=== PATIENT | male | born 1965 | race African-American/Black ===

== ENCOUNTER 2024-06-28 16:15 | Inpatient (IN) | payer MEDICARE, MEDICAID, SELFPAY ==
[2024-06-28] VITALS (18 sets, daily range): BP systolic 165–211; BP diastolic 65–151; PULSE 72–83; RESP 8–31; TEMP 35.8–36.7; O2SAT 92–100; BMI 21.0; BMI 21.1
--- NOTE | 2024-06-28 16:22 | CT_ITS ---
EXAMINATION : Head CT w/out contrast HISTORY : fall COMPARISON : None. TECHNIQUE : Multiple contiguous axial images were obtained from the skull base to the vertex without intravenous contrast. A radiation dose optimization technique was used for this scan. FINDINGS : There is no evidence for acute intracranial hemorrhage, mass effect, or midline shift. There is no extra-axial fluid collection. There are periventricular white matter changes consistent with chronic microvascular ischemic disease. There is sulcal widening and ventricular enlargement consistent with cerebral atrophy. There is normal thompson-white differentiation, without CT evidence of acute ischemia or infarct. Right frontoparietal encephalomalacia. The skull base and calvarium are unremarkable. The orbits are unremarkable. The paranasal sinuses are clear. The mastoid air cells are well-aerated. The soft tissues are unremarkable. CT/Brain/Head without Contrast IMPRESSION: No acute intracranial abnormality. Right frontoparietal encephalomalacia. Chronic involutional and ischemic changes of the brain. Electronically Signed: Eugneio Richardson MD at 17:01 EST ,
--- NOTE | 2024-06-28 16:22 | CT_ITS ---
INDICATION: fall EXAMINATION: CT CERVICAL SPINE - CT Spine Cervical W/O Contrast Injection TECHNIQUE: Helically acquired images were obtained of the cervical spine. 2D reformatted images were reviewed. A radiation dose optimization technique was used for this scan. IV Contrast dosage and agent: None. COMPARISON: None. FINDINGS: VERTEBRAE: No fracture or traumatic subluxation. No discrete lytic or blastic abnormality. Normal alignment. Normal craniocervical junction and cervicothoracic junction. DISCS and SPINAL CANAL: Mild multilevel degenerative disc disease and spondylosis. No critical stenosis. NECK SOFT TISSUES: No prevertebral soft tissue swelling. There is no cervical adenopathy. LUNG APICES: Clear. CT/Spine Cervical without Contras IMPRESSION: No evidence of acute cervical spinal fracture or spondylolisthesis. Electronically Signed: Eugenio Richardson MD at 17:[address] [facility] ,
--- NOTE | 2024-06-28 16:25 | EDS_ITS ---
HPI <AMOS Cross - Last Filed: 06/28/24 20:58> HPI - Fall History of Present Illness Chief Complaint: Fall Narrative Narrative: 58-year-old male with past medical history of CVA and left hemiparesis presents with altered mental status that started last night. Documentation shows he has a history of HTN, HLD, DM2, CVA, left-sided hemiparesis and dysarthria, ESRD on HD MWF. He is alert and oriented x 1-2 at baseline. Last night he seemed more confused with vomiting. Today he was sitting in his wheelchair and staff had called the paramedics to take him to the ER for evaluation when he fell forward out of the chair onto the ground. Most of the impact was on his back. No loss of consciousness. No blood thinners. He is now awake but will not answer questions and has vomited on the way several times here. [facility] <AMOS Cross - Last Filed: 06/28/24 20:58> [facility] Home Medications ?Medication ?Instructions ?Recorded ?Last Taken ?Type acetaminophen 325 mg capsule 650 mg PO Q4H PRN fever or pain 06/28/24 Unknown History acetaminophen 650 mg rectal 650 mg AL Q4H PRN fever 06/28/24 Unknown History suppository bisacodyl 10 mg rectal suppository 10 mg AL DAILY PRN constipation 06/28/24 Unknown History brimonidine 0.2 % eye drops 1 drp ophthalmic (eye) BID 06/28/24 Unknown History buspirone 5 mg tablet 5 mg PO TID ANXIETY 06/28/24 Unknown History carvedilol 25 mg tablet 50 mg PO BID 06/28/24 Unknown History cholecalciferol (vitamin D3) 1,250 1,250 mcg PO QWEEK 06/28/24 Unknown History mcg (50,000 unit) capsule clonidine 0.3 mg/24 hr weekly 1 patch transdermal QWEEK 06/28/24 Unknown History transdermal patch dorzolamide 22.3 mg-timolol 6.8 1 drp ophthalmic (eye) Q12H 06/28/24 Unknown History mg/mL eye drops escitalopram oxalate 10 mg tablet 10 mg PO DAILY 06/28/24 Unknown History (Lexapro) gabapentin 300 mg capsule 300 mg PO DAILY 06/28/24 Unknown History glucagon 1 mg solution for 1 mg subcut X1 06/28/24 Unknown History injection (Glucagon Emergency Kit) guaifenesin 100 mg/5 mL oral 200 mg PO Q4H PRN congestion 06/28/24 Unknown History liquid (Adult Tussin Chest Congestion) hydralazine 100 mg tablet 100 mg PO TID 06/28/24 Unknown History insulin glargine 100 unit/mL (3 10 unit subcut QHS 06/28/24 Unknown History mL) subcutaneous pen (Lantus Solostar U-100 Insulin) insulin lispro 100 unit/mL 1 unit subcut .COMPLEX 06/28/24 Unknown History subcutaneous pen (Humalog KwikPen (U-100) Insulin) latanoprost 0.005 % eye drops 1 drp ophthalmic (eye) QHS 06/28/24 Unknown History lorazepam 0.5 mg tablet (Ativan) 0.5 mg PO Q12H PRN anxiety 06/28/24 Unknown History magnesium hydroxide 400 mg/5 mL 30 ml PO DAILY PRN constipation 06/28/24 Unknown History oral suspension (Milk of Magnesia) melatonin 5 mg tablet 5 mg PO QHS 06/28/24 Unknown History mirtazapine 15 mg tablet 15 mg PO QHS 06/28/24 Unknown History nifedipine 90 mg tablet,extended 90 mg PO DAILY 06/28/24 Unknown History release pantoprazole 20 mg tablet,delayed 20 mg PO DAILY 06/28/24 Unknown History release sevelamer carbonate 800 mg tablet 800 mg PO TID 06/28/24 Unknown History sodium phosphates 19 gram-7 118 ml AL DAILY PRN constipation 06/28/24 Unknown History gram/118 mL enema (Enema) trazodone 100 mg tablet 100 mg PO QHS 06/28/24 Unknown History vitamin B complex-vitamin C-folic 1 tab PO DAILY 06/28/24 Unknown History acid 0.8 mg tablet (Melony-Barrett) Allergy/AdvReac Type Severity Reaction Status Date / Time tramadol Allergy Unknown PT UNABLE Verified 06/28/24 16:17 TO RESPOND-NEEDS F/U lisinopril Allergy PT UNABLE Verified 06/28/24 16:17 TO RESPOND-NEEDS F/U Social History Smoking Status: Unknown if ever smoked ROS <AMOS Cross - Last Filed: 06/28/24 20:58> ROS ED ROS Narrative unable to obtain due to encephalopathy EXAM <AMOS Cross - Last Filed: 06/28/24 20:58> Physical Exam Narrative Exam Narrative: CONST: Patient awake sitting in bed, agitated and moving around. EYES: Normal inspection. HEAD: Normocephalic atraumatic. NECK: Normal inspection. RESP: No respiratory distress, CTAB. CVS: Regular rate and rhythm, no murmur, no gallop. ABD: Soft and nontender, no guarding or rebound. Back: Normal inspection, no external signs of trauma. SKIN: Color normal, no rash, warm, dry, intact. EXTREMITIES: Chronic left upper extremity contracture. Patient moving right arm and both legs while moving around the bed and pulled away right arm when staff trying to insert IV. NEURO: Awake. He told me his name but then would not answer further questions and is not making eye contact or following commands. PSYCH: Normal affect. Const Vital Signs: 06/28/24 16:17 06/28/24 16:22 06/28/24 17:06 Temperature 97 F L Temperature Source Temporal Pulse Rate 74 77 Respiratory Rate 15 14 Respiratory Effort Normal Respiratory Depth Normal Respiratory Pattern Normal Blood Pressure 209/65 H 211/86 H Blood Pressure Mean 113 127 Pulse Ox 95 92 93 Oxygen Delivery Method Room Air Room Air 06/28/24 17:35 06/28/24 18:06 06/28/24 19:11 Temperature Temperature Source Pulse Rate 72 Respiratory Rate 19 H Respiratory Effort Respiratory Depth Respiratory Pattern Blood Pressure 175/87 H 201/94 H 197/151 H Blood Pressure Mean 116 129 166 Pulse Ox 97 Oxygen Delivery Method 06/28/24 19:20 06/28/24 19:27 06/28/24 19:27 Temperature Temperature Source Pulse Rate 78 83 Respiratory Rate 31 H 19 H Respiratory Effort Respiratory Depth Respiratory Pattern Blood Pressure 198/111 H 198/111 H Blood Pressure Mean 140 135 Pulse Ox 95 98 Oxygen Delivery Method 06/28/24 19:30 06/28/24 19:34 06/28/24 19:45 Temperature Temperature Source Pulse Rate 82 78 73 Respiratory Rate 13 10 L 12 Respiratory Effort Respiratory Depth Respiratory Pattern Blood Pressure 165/81 H 173/84 H Blood Pressure Mean 104 108 Pulse Ox 96 95 97 Oxygen Delivery Method Room Air 06/28/24 20:00 06/28/24 20:15 06/28/24 20:30 Temperature Temperature Source Pulse Rate 78 73 78 Respiratory Rate 8 L 12 13 Respiratory Effort Respiratory Depth Respiratory Pattern Blood Pressure 188/102 H 199/116 H 199/116 H Blood Pressure Mean 127 134 141 Pulse Ox 96 99 100 Oxygen Delivery Method Room Air Room Air Room Air 06/28/24 20:45 06/28/24 21:00 Temperature Temperature Source Pulse Rate 75 80 Respiratory Rate 10 L 15 Respiratory Effort Respiratory Depth Respiratory Pattern Blood Pressure 171/94 H Blood Pressure Mean 117 Pulse Ox 97 99 Oxygen Delivery Method Room Air <Dr. Ryan Vale MD - Last Filed: 06/28/24 21:10> Physical Exam Const Vital Signs: 06/28/24 16:17 06/28/24 16:22 06/28/24 17:06 Temperature 97 F L Temperature Source Temporal Pulse Rate 74 77 Respiratory Rate 15 14 Respiratory Effort Normal Respiratory Depth Normal Respiratory Pattern Normal Blood Pressure 209/65 H 211/86 H Blood Pressure Mean 113 127 Pulse Ox 95 92 93 Oxygen Delivery Method Room Air Room Air 06/28/24 17:35 06/28/24 18:06 06/28/24 19:11 Temperature Temperature Source Pulse Rate 72 Respiratory Rate 19 H Respiratory Effort Respiratory Depth Respiratory Pattern Blood Pressure 175/87 H 201/94 H 197/151 H Blood Pressure Mean 116 129 166 Pulse Ox 97 Oxygen Delivery Method 06/28/24 19:20 06/28/24 19:27 06/28/24 19:27 Temperature Temperature Source Pulse Rate 78 83 Respiratory Rate 31 H 19 H Respiratory Effort Respiratory Depth Respiratory Pattern Blood Pressure 198/111 H 198/111 H Blood Pressure Mean 140 135 Pulse Ox 95 98 Oxygen Delivery Method 06/28/24 19:30 06/28/24 19:34 06/28/24 19:45 Temperature Temperature Source Pulse Rate 82 78 73 Respiratory Rate 13 10 L 12 Respiratory Effort Respiratory Depth Respiratory Pattern Blood Pressure 165/81 H 173/84 H Blood Pressure Mean 104 108 Pulse Ox 96 95 97 Oxygen Delivery Method Room Air 06/28/24 20:00 06/28/24 20:15 06/28/24 20:30 Temperature Temperature Source Pulse Rate 78 73 78 Respiratory Rate 8 L 12 13 Respiratory Effort Respiratory Depth Respiratory Pattern Blood Pressure 188/102 H 199/116 H 199/116 H Blood Pressure Mean 127 134 141 Pulse Ox 96 99 100 Oxygen Delivery Method Room Air Room Air Room Air 06/28/24 20:45 06/28/24 21:00 Temperature Temperature Source Pulse Rate 75 80 Respiratory Rate 10 L 15 Respiratory Effort Respiratory Depth Respiratory Pattern Blood Pressure 171/94 H Blood Pressure Mean 117 Pulse Ox 97 99 Oxygen Delivery Method Room Air [facility] <AMOS Cross - Last Filed: 06/28/24 20:58> [facility] Narrative Medical decision making narrative: History gathered from: EMS, nursing staff called the SNF for history Consults: hospitalist, [facility] Wide differential includes but not limited to intracranial hemorrhage, electrolyte abnormality, infection, hypertensive urgency or emergency 58-year-old male from [facility] was was sitting in his wheelchair awaiting EMS transport due to altered mental status and then had a fall and vomiting. He is awake but agitated. He can tell me his name but can provide no other history. He does not follow commands. He has chronic left arm contracture from an old stroke with no other obvious new deficits. No signs of trauma on exam. BP is high at 209/65. With vomiting after a fall concern is to rule out intracranial hemorrhage. He was given Ativan so he can get testing done. CT brain and cervical spine are negative. CXR shows no acute process. Labs show normal white count of 8.5 and stable anemia of chronic disease at 11.3. Creatinine is 7.82 consistent with ESRD. He is retaining CO2 at 36.0 which appears new so venous blood gas was ordered. There is no significant CO2 retention on venous blood gas. Glucose is 184, normal anion gap. Patient does not make urine. He is still altered from baseline and will need admission. Case discussed with hospitalist. Of note for his hypertension he was initially given IV hydralazine 10 mg and did briefly come down but is now again up to 201/94 so I ordered IV hydralazine 20 mg. Case will be discussed with the hospitalist for admission. The hospitalist requested and [facility] consult with concern that since his altered mental status has been ongoing since yesterday there is a possibility of subclinical seizures that may require 24-hour EEG monitoring. I placed the [facility] consult and discussed the case with Dr. Margareth Cee. She states he does not require continuous EEG but recommended admission to [place] with a routine EEG and MRI of the brain. I have personally performed a face to face assessment of the patient and have reviewed the JESSE Note. I performed a substantive portion of the visit including all aspects of the following. My quintana findings include: History is remarkable for patient awaiting transfer to hospital because of altered mental status. He had nausea and vomiting since fall. Nursing staff did call the facility. His mental status was altered prior to the fall. Uncertain where this is worse. He has vomited several times since the fall. Presently he is agitated. He is unable to contribute with respect to history. Physical exam is limited because of his agitation. Exam is remarkable for an elevated blood pressure of 209/65. There is no obvious head trauma noted. There is no hemotympanum. There is no palpable depression of the scalp. There is no nystagmus. Patient is presently agitated. Will administer Ativan. Patient withdraws to Babinski testing. Medical Decision Making with history of fall head trauma potentially change in mental status multiple episodes of vomiting CT of the head was obtained to rule out subdural hematoma, epidural hematoma, traumatic subarachnoid hemorrhage or intraparenchymal contusion. Since C-spine cannot be cleared patient was placed in a c-collar and CT of the neck was obtained. Because his illness started prior to the fall we will perform propria labs to look for metabolic infectious cause of his altered mental status. Other additions or changes: Patient had a witnessed generalized tonic-clonic seizure in the emergency department. He does not have a history of seizure disorder. He was administered 17 mg/kg of valproic acid. He stopped without treatment. His blood pressure is elevated and remains elevated. He is noted to be on hydralazine. 10 mg of IV hydralazine was ordered. Lab Data Attestation: I reviewed the patient's lab results. Labs: Laboratory Results - last 24 hr 06/28/24 16:30 WBC 8.5 RBC 3.71 L Hgb 11.3 L Hct 33.8 L MCV 91.1 MCH 30.5 MCHC 33.4 RDW Std Deviation 51.5 H RDW Coeff of Tae 15.4 H Plt Count 295 MPV 10.1 Immature Gran % (Auto) 0.500 Neut % (Auto) 77.1 H Lymph % (Auto) 11.2 L [place] % (Auto) 9.3 Eos % (Auto) 1.1 Baso % (Auto) 0.8 Absolute Neuts (auto) 6.5 Absolute Lymphs (auto) 0.95 Nucleated RBC % 0 Sodium 137 Potassium 4.4 Chloride 95 L Carbon Dioxide 36.0 H Anion Gap 6 BUN 33 H Creatinine 7.82 H* Estim Creat Clear Calc 9.15 Est GFR (MDRD) Af Amer 9 L Est GFR (MDRD) Non-Af 8 L BUN/Creatinine Ratio 4.2 L Glucose 184 H Calcium 10.0 ABG Data ABG results: ABG 06/28/24 17:32 Specimen Type PILY VBG pH 7.47 H VBG pO2 35 VBG HCO3 33 H VBG Total CO2 34 H VBG O2 Sat (Calc) 71 H VBG Base Excess 9 H POC Mix VBG pCO2 Pt Tmp 44.6 O2 Delivery Device RA Radiography Diagnostic Testing: Clinical Impression(s) from Imaging Studies Brain CT 06/28/24 16:22 IMPRESSION: No acute intracranial abnormality. Right frontoparietal encephalomalacia. Chronic involutional and ischemic changes of the brain. Electronically Signed: Eugenio Richardson MD at 17:01 EST , Cervical Spine CT 06/28/24 16:22 IMPRESSION: No evidence of acute cervical spinal fracture or spondylolisthesis. Electronically Signed: Eugenio Richardson MD at 17:02 EST , Chest X-Ray 06/28/24 16:35 IMPRESSION: No acute radiographic abnormalities. Electronically Signed: Eugenio Richardson MD at 17:02 EST , <Dr. Ryan Vale MD - Last Filed: 06/28/24 21:10> [facility] MDM Narrative Medical decision making narrative: I have personally performed a face to face assessment of the patient and have reviewed the JESSE Note. I performed a substantive portion of the visit including all aspects of the following. My quintana findings include: History is remarkable for patient awaiting transfer to hospital because of altered mental status. He had nausea and vomiting since fall. Nursing staff did call the facility. His mental status was altered prior to the fall. Uncertain where this is worse. He has vomited several times since the fall. Presently he is agitated. He is unable to contribute with respect to history. Physical exam is limited because of his agitation. Exam is remarkable for an elevated blood pressure of 209/65. There is no obvious head trauma noted. There is no hemotympanum. There is no palpable depression of the scalp. There is no nystagmus. Patient is presently agitated. Will administer Ativan. Patient withdraws to Babinski testing. Medical Decision Making with history of fall head trauma potentially change in mental status multiple episodes of vomiting CT of the head was obtained to rule out subdural hematoma, epidural hematoma, traumatic subarachnoid hemorrhage or intraparenchymal contusion. Since C-spine cannot be cleared patient was placed in a c-collar and CT of the neck was obtained. Because his illness started prior to the fall we will perform propria labs to look for metabolic infectious cause of his altered mental status. Other additions or changes: Patient had a witnessed generalized tonic-clonic seizure in the emergency department. He does not have a history of seizure disorder. He was administered 17 mg/kg of valproic acid. He stopped without treatment. His blood pressure is elevated and remains elevated. He is noted to be on hydralazine. 10 mg of IV hydralazine was ordered. Lab Data Labs: Laboratory Results - last 24 hr 06/28/24 16:30 WBC 8.5 RBC 3.71 L Hgb 11.3 L Hct 33.8 L MCV 91.1 MCH 30.5 MCHC 33.4 RDW Std Deviation 51.5 H RDW Coeff of Tae 15.4 H Plt Count 295 MPV 10.1 Immature Gran % (Auto) 0.500 Neut % (Auto) 77.1 H Lymph % (Auto) 11.2 L [place] % (Auto) 9.3 Eos % (Auto) 1.1 Baso % (Auto) 0.8 Absolute Neuts (auto) 6.5 Absolute Lymphs (auto) 0.95 Nucleated RBC % 0 Sodium 137 Potassium 4.4 Chloride 95 L Carbon Dioxide 36.0 H Anion Gap 6 BUN 33 H Creatinine 7.82 H* Estim Creat Clear Calc 9.15 Est GFR (MDRD) Af Amer 9 L Est GFR (MDRD) Non-Af 8 L BUN/Creatinine Ratio 4.2 L Glucose 184 H Calcium 10.0 ABG Data ABG results: ABG 06/28/24 17:32 Specimen Type PILY VBG pH 7.47 H VBG pO2 35 VBG HCO3 33 H VBG Total CO2 34 H VBG O2 Sat (Calc) 71 H VBG Base Excess 9 H POC Mix VBG pCO2 Pt Tmp 44.6 O2 Delivery Device RA Radiography Chest X-Ray - ED: 1 View, Read by ED Physician, Normal, Lungs, Mediastinum, Bony Structures, No Acute Disease and Cardiomegaly Diagnostic Testing: Clinical Impression(s) from Imaging Studies Brain CT 06/28/24 16:22 IMPRESSION: No acute intracranial abnormality. Right frontoparietal encephalomalacia. Chronic involutional and ischemic changes of the brain. Electronically Signed: Eugenio Richardson MD at 17:01 EST Reading Location ID and State: [place] / [place] Tel , Service support , Cervical Spine CT 06/28/24 16:22 IMPRESSION: No evidence of acute cervical spinal fracture or spondylolisthesis. Electronically Signed: Eugenio Richardson MD at 17:02 EST Reading Location ID and State: [place] / [place] Tel , Service support , Chest X-Ray 06/28/24 16:35 IMPRESSION: No acute radiographic abnormalities. Electronically Signed: Eugenio iRchardson MD at 17:02 EST , CT of the head reveals evidence of prior caudate nucleus stroke. There is an area of hypodensity in the left parietal area. Will need to compare to prior. CT of the neck reveals some degenerative changes no fracture, subluxation dislocation. Is no prevertebral soft tissue swelling noted. Management Discussion w/another healthcare provider: Hospitalist (Hospitalist concern the patient has been having partial seizures. Requested consult with neurology. Neurology was contacted made aware of patient's history physical and hospitalist concern since we do not have 24-hour EEG monitoring capability. Awaiting consult recommendation.) Discharge Plan Triage Chief Complaint: Fall ED Midlevel Provider: [place] ED Provider: Ryan Vale Dx/Rx/DC Orders Clinical Impression: Fall, Encephalopathy, History of end stage renal disease, Hypertension, Generalized convulsive seizure Prescriptions: No Action acetaminophen 325 mg capsule 650 mg PO Q4H PRN (Reason: fever or pain) acetaminophen 650 mg suppository 650 mg AL Q4H PRN (Reason: fever) lorazepam [Ativan] 0.5 mg tablet 0.5 mg PO Q12H PRN (Reason: anxiety) bisacodyl 10 mg suppository 10 mg AL DAILY PRN (Reason: constipation) brimonidine 0.2 % drops 1 drp ophthalmic (eye) BID Rx Instructions: BOTH EYES buspirone 5 mg tablet 5 mg PO TID carvedilol 25 mg tablet 50 mg PO BID Rx Instructions: must administer with a meal/food clonidine 0.3 mg/24 hr patch weekly 1 patch transdermal QWEEK dorzolamide-timolol 22.3-6.8 mg/mL drops 1 drp ophthalmic (eye) Q12H Rx Instructions: BOTH EYES Enema 19-7 gram/118 mL enema 118 ml AL DAILY PRN (Reason: constipation) gabapentin 300 mg capsule 300 mg PO DAILY Glucagon Emergency Kit (human) 1 mg recon soln 1 mg subcut X1 guaifenesin [Adult Tussin Chest Congestion] 100 mg/5 mL liquid 200 mg PO Q4H PRN (Reason: congestion) insulin lispro [Humalog KwikPen Insulin] 100 unit/mL insulin pen 1 unit subcut .COMPLEX Rx Instructions: 1 unit subcutaneously QID PER SLIDING SCALE 151-200=1U, 201-250=2U, 251- 300=3U, 301-350=4U, 351-400=5U, 401-450=6U, NOTIFY MD IF >450; hydralazine 100 mg tablet 100 mg PO TID insulin glargine [Lantus Solostar U-100 Insulin] 100 unit/mL (3 mL) insulin pen 10 unit subcut QHS latanoprost 0.005 % drops 1 drp ophthalmic (eye) QHS Rx Instructions: BOTH EYES escitalopram oxalate [Lexapro] 10 mg tablet 10 mg PO DAILY melatonin 5 mg tablet 5 mg PO QHS magnesium hydroxide [Milk of Magnesia] 400 mg/5 mL suspension 30 ml PO DAILY PRN (Reason: constipation) nifedipine 90 mg tablet extended release 90 mg PO DAILY pantoprazole 20 mg tablet,delayed release (DR/EC) 20 mg PO DAILY mirtazapine 15 mg tablet 15 mg PO QHS Melony-Barrett 0.8 mg tablet 1 tab PO DAILY sevelamer carbonate 800 mg tablet 800 mg PO TID trazodone 100 mg tablet 100 mg PO QHS cholecalciferol (vitamin D3) 1,250 mcg (50,000 unit) capsule 1,250 mcg PO QWEEK Primary Care Provider: Karol Alejandro Print Language: [place]
--- NOTE | 2024-06-28 16:35 | RAD_ITS ---
INDICATION: fall EXAMINATION/TECHNIQUE: X-RAY - XR Chest 1 View COMPARISON: None. FINDINGS: The lungs are clear. The heart is borderline enlarged. No pleural effusion or pneumothorax. No acute osseous abnormalities. RAD/Chest 1 View (Portable) IMPRESSION: No acute radiographic abnormalities. Electronically Signed: Eugenio Richardson MD at 17:02 EST ,
[2024-06-28 16:44] LABS: Absolute Lymphocyte Count 0.95 X10^3/uL (0.83-4.51); Absolute Neutrophil Count 6.5 X10^3/uL (2.0-7.7); Basophil# 0.07 X10^3/uL; Basophil% 0.8 % (0-1); Eosinophil# 0.09 X10^3/uL; Eosinophils% 1.1 % (0-5); Hematocrit 33.8 % (40-54); Hemoglobin 11.3 g/dL (13.0-16.5); Lymphocyte # 0.95 X10^3/ul (0.83-4.51); Lymphocyte % 11.2 % (19-41); Mean Corp Hgb Conc 33.4 g/dL (32-36); Mean Corpuscular Hgb 30.5 pg (27.0-32.0); Mean Corpuscular Volume 91.1 fL (80-94); Mean Platelet Vol. 10.1 fl (6.2-12.0); Monocyte# 0.79 X10^3/uL; Monocyte% 9.3 % (0-10); NRBC Flagged by Analyzer 0 % (0-5); Neutrophil # 6.52 X10^3/uL (2.7-7.7); Neutrophil % 77.1 % (47-70); Platelet Count 295 K/mm3 (150-450); RBC Distribution Width CV 15.4 % (11.6-14.6); RBC Distribution Width SD 51.5 fl (35.1-43.9); Red Blood Count 3.71 M/mm3 (4.6-6.2); White Blood Count 8.5 K/mm3 (4.4-11.0)
[2024-06-28] MEDS: Ondansetron 4 MG/2 ML Vial IV (16:45)
[2024-06-28] MEDS: LORazepam 2 MG/ML Syringe 1 MG IV (16:45)
[2024-06-28] MEDS: 0.9% Normal Saline (1000mL) 1,000 ML 999 ML IV (16:45)
[2024-06-28 17:03] LABS: Anion Gap 6 (5-15); BUN 33 mg/dL (7-18); BUN/Creat Ratio 4.2 RATIO (10-20); Chloride 95 mmol/L (98-107); Creatinine, Serum 7.82 mg/dL (0.70-1.30); EST Glomerular Filtration Rate 8 mL/min (>60); Est Glom Filt Rate - Afr Amer 9 mL/min (>60); Estimated Creatinine Clearance 9.15 ml/min; Glucose 184 mg/dL (74-106); Potassium 4.4 mmol/L (3.5-5.1); Sodium Level 137 mmol/L (136-145)
[2024-06-28] MEDS: DEXTROSE 5% IV (17:30)
[2024-06-28] MEDS: VALPROATE SODIUM IV (17:30)
[2024-06-28] MEDS: WATER IV (17:30)
[2024-06-28] MEDS: hydrALAZINE 20 MG/ML Vial 10 MG IV (17:34)
[2024-06-28 18:01] LABS: Blood Gas Specimen Type VEN; O2 Delivery Device RA
[2024-06-28 18:02] LABS: VBG BASE EXCESS 9 mmol/L (-1.0-3.5); VBG Bicarbonate 33 mmol/L (22-26); VBG PO2 35 mmHg (25-40); VBG SO2 71 % (50-70); VBG pCO2 44.6 mmHg (41-51); VBG pH 7.47 (7.32-7.42)
[2024-06-28 18:04] LABS: VBG TCO2 34 mmol/L (23-33)
[2024-06-28] MEDS: hydrALAZINE 20 MG/ML Vial IV (19:27)
--- NOTE | 2024-06-28 19:50 | ED.RN ---
CALLED [id number] FOR CONSENT.
--- NOTE | 2024-06-28 21:15 | PCM.HP.STD ---
HPI - General General Date of Admission: 06/28/24 Date of Service: 06/28/24 Chief Complaint: Altered mentation with seizure activity HPI Narrative MARILY WOLFE, is a 58 M who presented to [facility] ED on 06/28/2024 with altered mentation. Patient has history of CVA with left-sided hemiparesis and lives in a shelter. History is also notable for ESRD on HD, hypertension, hyperlipidemia and diabetes. Patient was found by staff at facility to be more confused yesterday evening. He also began to have episodes of vomiting then. This morning he was sitting in his wheelchair and fell forward onto the ground, so EMS was called. Staff noted there that patient did not lose consciousness. Is not on any blood thinners. On arrival to the ED he was hypertensive to the low 200s systolic but otherwise hemodynamically stable on room air. CBC appeared hemoconcentrated but otherwise was unremarkable. BMP showed elevated creatinine consistent with ESRD, no other abnormalities. VBG showed pH 7.47, pCO2 34. While in the ED, patient was noted by nursing staff to have a generalized tonic-clonic seizure. ED physician noted that the seizure had subsided by the time he saw the patient. He was given a dose of Ativan and loaded with Depacon at that time. CT head without contrast showed right frontoparietal encephalomalacia, was otherwise nonacute. CT C-spine unremarkable. Chest x-ray unremarkable. Case was discussed with [facility] neurology who recommended admission here with plan for MRI brain and spot EEG. Hospitalist was then contacted for admission. I saw the patient at bedside in the ED. Patient was laying on his side in bed and in no acute distress. His eyes were open for me but he did not make eye contact with me and was not able to follow any commands. He was protecting his airway without issue. He generally appeared weak and cachectic. Will be admitted for further management. [facility] Medical History (Updated 06/28/24 @ 22:50 by Laure Barros) Myocardial infarct Anxiety Kidney disease Diabetes Stroke/cerebrovascular accident Home Medications ?Medication ?Instructions ?Recorded ?Last Taken ?Type acetaminophen 325 mg capsule 650 mg PO Q4H PRN fever or pain 06/28/24 Unknown History acetaminophen 650 mg rectal 650 mg FL Q4H PRN fever 06/28/24 Unknown History suppository bisacodyl 10 mg rectal suppository 10 mg FL DAILY PRN constipation 06/28/24 Unknown History brimonidine 0.2 % eye drops 1 drp ophthalmic (eye) BID 06/28/24 Unknown History buspirone 5 mg tablet 5 mg PO TID ANXIETY 06/28/24 Unknown History carvedilol 25 mg tablet 50 mg PO BID 06/28/24 Unknown History cholecalciferol (vitamin D3) 1,250 1,250 mcg PO QWEEK 06/28/24 Unknown History mcg (50,000 unit) capsule clonidine 0.3 mg/24 hr weekly 1 patch transdermal QWEEK 06/28/24 Unknown History transdermal patch dorzolamide 22.3 mg-timolol 6.8 1 drp ophthalmic (eye) Q12H 06/28/24 Unknown History mg/mL eye drops escitalopram oxalate 10 mg tablet 10 mg PO DAILY 06/28/24 Unknown History (Lexapro) gabapentin 300 mg capsule 300 mg PO DAILY 06/28/24 Unknown History glucagon 1 mg solution for 1 mg subcut X1 06/28/24 Unknown History injection (Glucagon Emergency Kit) guaifenesin 100 mg/5 mL oral 200 mg PO Q4H PRN congestion 06/28/24 Unknown History liquid (Adult Tussin Chest Congestion) hydralazine 100 mg tablet 100 mg PO TID 06/28/24 Unknown History insulin glargine 100 unit/mL (3 10 unit subcut QHS 06/28/24 Unknown History mL) subcutaneous pen (Lantus Solostar U-100 Insulin) insulin lispro 100 unit/mL 1 unit subcut .COMPLEX 06/28/24 Unknown History subcutaneous pen (Humalog KwikPen (U-100) Insulin) latanoprost 0.005 % eye drops 1 drp ophthalmic (eye) QHS 06/28/24 Unknown History lorazepam 0.5 mg tablet (Ativan) 0.5 mg PO Q12H PRN anxiety 06/28/24 Unknown History magnesium hydroxide 400 mg/5 mL 30 ml PO DAILY PRN constipation 06/28/24 Unknown History oral suspension (Milk of Magnesia) melatonin 5 mg tablet 5 mg PO QHS 06/28/24 Unknown History mirtazapine 15 mg tablet 15 mg PO QHS 06/28/24 Unknown History nifedipine 90 mg tablet,extended 90 mg PO DAILY 06/28/24 Unknown History release pantoprazole 20 mg tablet,delayed 20 mg PO DAILY 06/28/24 Unknown History release sevelamer carbonate 800 mg tablet 800 mg PO TID 06/28/24 Unknown History sodium phosphates 19 gram-7 118 ml FL DAILY PRN constipation 06/28/24 Unknown History gram/118 mL enema (Enema) trazodone 100 mg tablet 100 mg PO QHS 06/28/24 Unknown History vitamin B complex-vitamin C-folic 1 tab PO DAILY 06/28/24 Unknown History acid 0.8 mg tablet (Melony-Barrett) Allergy/AdvReac Type Severity Reaction Status Date / Time tramadol Allergy Unknown PT UNABLE Verified 06/28/24 16:17 TO RESPOND-NEEDS F/U lisinopril Allergy PT UNABLE Verified 06/28/24 16:17 TO RESPOND-NEEDS F/U Family History unable to obtain Surgical History unable to obtain Social History Smoking Status: Unknown if ever smoked ROS Review of Systems ROS Unobtainable: due to mental status Vital Signs Vital Signs Vital Signs: 06/28/24 16:17 06/28/24 16:22 06/28/24 17:06 Temperature 97 F L Temperature Source Temporal Pulse Rate 74 77 Respiratory Rate 15 14 Respiratory Effort Normal Respiratory Depth Normal Respiratory Pattern Normal Blood Pressure 209/65 H 211/86 H Blood Pressure Mean 113 127 Pulse Ox 95 92 93 Oxygen Delivery Method Room Air Room Air 06/28/24 17:35 06/28/24 18:06 06/28/24 19:11 Temperature Temperature Source Pulse Rate 72 Respiratory Rate 19 H Respiratory Effort Respiratory Depth Respiratory Pattern Blood Pressure 175/87 H 201/94 H 197/151 H Blood Pressure Mean 116 129 166 Pulse Ox 97 Oxygen Delivery Method 06/28/24 19:20 06/28/24 19:27 06/28/24 19:27 Temperature Temperature Source Pulse Rate 78 83 Respiratory Rate 31 H 19 H Respiratory Effort Respiratory Depth Respiratory Pattern Blood Pressure 198/111 H 198/111 H Blood Pressure Mean 140 135 Pulse Ox 95 98 Oxygen Delivery Method 06/28/24 19:30 06/28/24 19:34 06/28/24 19:45 Temperature Temperature Source Pulse Rate 82 78 73 Respiratory Rate 13 10 L 12 Respiratory Effort Respiratory Depth Respiratory Pattern Blood Pressure 165/81 H 173/84 H Blood Pressure Mean 104 108 Pulse Ox 96 95 97 Oxygen Delivery Method Room Air 06/28/24 20:00 06/28/24 20:15 06/28/24 20:30 Temperature Temperature Source Pulse Rate 78 73 78 Respiratory Rate 8 L 12 13 Respiratory Effort Respiratory Depth Respiratory Pattern Blood Pressure 188/102 H 199/116 H 199/116 H Blood Pressure Mean 127 134 141 Pulse Ox 96 99 100 Oxygen Delivery Method Room Air Room Air Room Air 06/28/24 20:45 06/28/24 21:00 Temperature Temperature Source Pulse Rate 75 80 Respiratory Rate 10 L 15 Respiratory Effort Respiratory Depth Respiratory Pattern Blood Pressure 171/94 H Blood Pressure Mean 117 Pulse Ox 97 99 Oxygen Delivery Method Room Air Weight Weight: 62.8 kg Body Mass Index (BMI) 21.0 Physical Exam Const alert and no apparent distress Constitutional Narrative: Middle-age male, appears older than stated age, thin and cachectic, chronically ill-appearing, laying comfortably on side and eyes open but patient not tracking with his eyes or following any commands for me. General Appearance: comfortable HEENT normocephalic, head/scalp atraumatic and nasal mucous membranes and turbinates normal HEENT Narrative: Dry mucous membranes. Eyes PERRL, EOMs intact bilaterally and conjunctivae normal Chest inspection of chest normal Resp normal respiratory effort and no use of accessory muscles Resp Narrative: Breathing comfortably on room air at rest. Good breath sounds bilaterally throughout, no wheezing or crackles noted. Cardio regular rate, regular rhythm, no murmurs and peripheral pulses 2+ throughout GI normal to inspection, nondistended, normoactive bowel sounds, soft to palpation, non-tender and non-distended Back/Spine normal ROM Skin no rashes or lesions noted Neuro Neuro Narrative: Chronic left upper extremity contracture. Results Lab / Micro Data 06/28/24 16:30 06/28/24 16:30 Labs: Laboratory Results - last 24 hr 06/28/24 16:30: WBC 8.5, RBC 3.71 L, Hgb 11.3 L, Hct 33.8 L, MCV 91.1, MCH 30.5, MCHC 33.4, RDW Std Deviation 51.5 H, RDW Coeff of Tae 15.4 H, Plt Count 295, MPV 10.1, Immature Gran % (Auto) 0.500, Neut % (Auto) 77.1 H, Lymph % (Auto) 11.2 L, [place] % (Auto) 9.3, Eos % (Auto) 1.1, Baso % (Auto) 0.8, Absolute Neuts (auto) 6.5, Absolute Lymphs (auto) 0.95, Nucleated RBC % 0, Sodium 137, Potassium 4.4, Chloride 95 L, Carbon Dioxide 36.0 H, Anion Gap 6, BUN 33 H, Creatinine 7.82 H*, Estim Creat Clear Calc 9.15, Est GFR (MDRD) Af Amer 9 L, Est GFR (MDRD) Non-Af 8 L, BUN/Creatinine Ratio 4.2 L, Glucose 184 H, Calcium 10.0 Micro: Microbiology 06/28/24 16:54 Mucosa - Nose SARS-CoV-2, Influenza & RSV (PCR) - Final ABG Data ABG results: ABG 06/28/24 17:32 Specimen Type PILY VBG pH 7.47 H VBG pO2 35 VBG HCO3 33 H VBG Total CO2 34 H VBG O2 Sat (Calc) 71 H VBG Base Excess 9 H POC Mix VBG pCO2 Pt Tmp 44.6 O2 Delivery Device RA Imaging Radiology Impression Brain CT 06/28/24 16:22 IMPRESSION: No acute intracranial abnormality. Right frontoparietal encephalomalacia. Chronic involutional and ischemic changes of the brain. Electronically Signed: Eugenio Richardson MD at 17:01 EST Reading Location ID and State: [place] / MD Tel , Service support , Cervical Spine CT 06/28/24 16:22 IMPRESSION: No evidence of acute cervical spinal fracture or spondylolisthesis. Electronically Signed: Eugenio Richardson MD at 17:02 EST Reading Location ID and State: [place] / MD Tel , Service support , Chest X-Ray 06/28/24 16:35 IMPRESSION: No acute radiographic abnormalities. Electronically Signed: Eugenio Richardson MD at 17:02 EST Reading Location ID and State: [email or web address] / MD Tel , Service support , Assessment & Plan Assessment/Plan (1) Encephalopathy: (2) Generalized convulsive seizure: PLAN: Plan Patient is a 58-year-old male who presented to [facility] ED on 06/28/2024 with altered mentation. 1. Altered mentation with tonic-clonic seizure ? Admit under inpatient status to PCU. Teleneurology consulted. Altered mentation seems most likely secondary to seizure activity but other etiologies possible. CT brain showed right frontoparietal encephalomalacia, was otherwise nonacute. Given IV Ativan and Depacon in the ED after witnessed tonic-clonic seizure. Per neurology recommendations, MRI brain without contrast and spot EEG ordered. Will defer to neurology on antiepileptic therapy. Speech therapy consulted and will keep patient n.p.o. until they see him. Avoid sedating medications as able. 2. History of CVA with chronic left arm contracture and general debility ? Case management consulted. Patient resides at shelter for chronic debility secondary to CVA with left-sided deficits. Presume patient will be okay for going back to shelter on discharge. 3. ESRD on HD ? Nephrology consulted. On HD MWF, last session on 06/27. 4. Hypertension ? Hypertensive to the low 200 systolic in the ED. Continue home Coreg, clonidine patch, hydralazine, and nifedipine. IV hydralazine doses in the ED were not too effective so IV labetalol as needed ordered. 5. Suspected malnutrition ? Nutrition consulted. BMI 21 on admit but appears thin and cachectic on exam. Currently n.p.o. due to altered mentation as noted above. 6. Anxiety/depression ? Continue home escitalopram, BuSpar, mirtazapine and trazodone. 7. Type 2 diabetes mellitus ? Home regimen of Lantus 10 units at night with sliding scale insulin. Blood glucose 184 on admit. Last A1c 5.8% on 06/18. Patient n.p.o. as noted above. Will treat with sliding scale insulin every 6 hours for now, adjust as needed. DVT prophylaxis: Heparin subcu CODE STATUS: Full code, unverified Expected disposition: Back to shelter, TBD Total clinical time spent by myself addressing the patient's medical issues, reviewing all the data, and collaborating with patient's care team: 75 minutes. Charges/Coding Visit Charges Inpatient E&M: 08911 Init Hosp L3
[2024-06-29] VITALS (24 sets, daily range): BP systolic 110–273; BP diastolic 68–117; PULSE 50–87; RESP 14–18; TEMP 36.2–37.1; O2SAT 93–100; BMI 21.0; BMI 20.5
[2024-06-29] MEDS: 0.9% Saline Lock 10 ML Syringe IV ×4 (01:58→23:10)
[2024-06-29] MEDS: Heparin Injection (Vial) 5,000 UNIT/ML VIAL 5000 UNIT SC ×3 (06:30→22:53)
[2024-06-29 06:38] LABS: Bedside Glucose 140 mg/dL (74-106)
--- NOTE | 2024-06-29 07:59 | PCM.PN.HOSP ---
Reason for Visit Reason for Visit: Diagnoses Encephalopathy, unspecified (06/28/24) Unspecified convulsions (06/28/24) Subjective Subjective Patient is a 58-year-old gentleman with history of CVA with chronic left arm contracture and general debility admitted with encephalopathy following tonic-clonic seizure Objective Data Objective Data Vital Signs: Vital Signs Temp Pulse Resp BP Pulse Ox O2 Del Method 98.0 F 80 18 162/105 H 97 Room Air 06/29/24 06:25 06/29/24 06:25 06/29/24 06:25 06/29/24 06:25 06/29/24 06:25 06/29/24 06:25 Oxygen Delivery Method Room Air Weight: 63 kg Body Mass Index (BMI) 21.1 Intake & Output: Intake and Output for Last 24 Hours 06/27/24 06/28/24 06/29/24 23:59 23:59 23:59 Intake Total 1060.7 / 1060.7 0 / 0 Balance 1060.7 / 1060.7 0 / 0 Lab / Micro Data 06/28/24 16:30 06/28/24 16:30 Labs: Laboratory Results - last 24 hr 06/28/24 16:30: WBC 8.5, RBC 3.71 L, Hgb 11.3 L, Hct 33.8 L, MCV 91.1, MCH 30.5, MCHC 33.4, RDW Std Deviation 51.5 H, RDW Coeff of Tae 15.4 H, Plt Count 295, MPV 10.1, Immature Gran % (Auto) 0.500, Neut % (Auto) 77.1 H, Lymph % (Auto) 11.2 L, [place] % (Auto) 9.3, Eos % (Auto) 1.1, Baso % (Auto) 0.8, Absolute Neuts (auto) 6.5, Absolute Lymphs (auto) 0.95, Nucleated RBC % 0, Sodium 137, Potassium 4.4, Chloride 95 L, Carbon Dioxide 36.0 H, Anion Gap 6, BUN 33 H, Creatinine 7.82 H*, Estim Creat Clear Calc 9.15, Est GFR (MDRD) Af Amer 9 L, Est GFR (MDRD) Non-Af 8 L, BUN/Creatinine Ratio 4.2 L, Glucose 184 H, Calcium 10.0 06/29/24 06:18: POC Glucose 140 H Micro: Microbiology 06/28/24 16:54 Mucosa - Nose SARS-CoV-2, Influenza & RSV (PCR) - Final ABG Data ABG results: ABG 06/28/24 17:32 Specimen Type PILY VBG pH 7.47 H VBG pO2 35 VBG HCO3 33 H VBG Total CO2 34 H VBG O2 Sat (Calc) 71 H VBG Base Excess 9 H POC Mix VBG pCO2 Pt Tmp 44.6 O2 Delivery Device RA Radiography Diagnostic Testing: Radiology Impression Brain CT 06/28/24 16:22 IMPRESSION: No acute intracranial abnormality. Right frontoparietal encephalomalacia. Chronic involutional and ischemic changes of the brain. Electronically Signed: Eugenio Richardson MD at 17:01 EST , Cervical Spine CT 06/28/24 16:22 IMPRESSION: No evidence of acute cervical spinal fracture or spondylolisthesis. Electronically Signed: Eugenio Richardson MD at 17:02 EST Reading Location ID and State: [id number] / [facility] [employer] Tel , Service support , Chest X-Ray 06/28/24 16:35 IMPRESSION: No acute radiographic abnormalities. Electronically Signed: Eugenio Richardson MD at 17:02 EST , Physical Exam Narrative GENERAL: cooperative HEENT: Atraumatic; normocephalic EYES; Anicteric, Normal Conjunctiva NECK; supple, normal thyroid, RESPIRATORY: Diminished to auscultation CARDIOVASCULAR: Regular S1 S2, GI: soft, normoactive bowel sounds, : No Renal angle tenderness; EXTREMITIES: No edema, no clubbing, MUSCULOSKELETAL: no muscle wasting NEURO: Awake; no lateralizing signs. SKIN: No Rash PSYCH; Flat affect Assessment & Plan Assessment/Plan (1) Encephalopathy: (2) Generalized convulsive seizure: PLAN: Plan Patient is a 58-year-old gentleman with history of CVA with chronic left arm contracture and general debility admitted with encephalopathy following tonic-clonic seizure 1. Acute encephalopathy following tonic-clonic seizure ? Patient did receive Ativan and Depacon in the ED ; admitted to the progressive care unit teleneurology consulted. CT brain showed right frontoparietal encephalomalacia, was otherwise nonacute. Given IV Ativan and Depacon in the ED after witnessed tonic-clonic seizure. Per neurology recommendations, MRI brain without contrast and spot EEG ordered. Subsequent antiepileptic therapy deferred to teleneuro 2. History of CVA with chronic left arm contracture and general debility ? Case management consulted. Patient resides at alf for chronic debility secondary to CVA with left-sided deficits. Presume patient will be okay for going back to alf on discharge. 3. ESRD on HD ? Nephrology consulted. On HD MWF, last session on 06/27. 4. Hypertension ? Hypertensive to the low 200 systolic in the ED. Continue home Coreg, clonidine patch, hydralazine, and nifedipine. IV hydralazine doses in the ED were not too effective so IV labetalol as needed ordered. 5. Suspected malnutrition ? Nutrition consulted. BMI 21 on admit but appears thin and cachectic on exam. Currently n.p.o. due to altered mentation as noted above. 6. Anxiety/depression ? Continue home escitalopram, BuSpar, mirtazapine and trazodone. 7. Type 2 diabetes mellitus ? Home regimen of Lantus 10 units at night with sliding scale insulin. Blood glucose 184 on admit. Last A1c 5.8% on 06/18. Patient n.p.o. as noted above. Will treat with sliding scale insulin every 6 hours for now, adjust as needed. 8. DVT prophylaxis subcu heparin Time spent in the patient's overall evaluation,decision-making process, review of diagnostic data, adjustment of management, discussion with other providers, nursing nursing and ancillary staff involved in patient's care documentation, 50 Minutes Charges/Coding Visit Charges Inpatient E&M: 39063 [facility] L3
[2024-06-29] MEDS: LORazepam 2 MG/ML Syringe IV (09:21)
--- NOTE | 2024-06-29 09:30 | MRI_ITS ---
EXAM: MR HEAD WITHOUT INTRAVENOUS CONTRAST CLINICAL INDICATION: seizure w/ h/o CVA, BEST POSSIBLE PATIENT CANT HOLD STILL EVEN MEDICATED TECHNIQUE: Multiplanar and multisequence MR images of the brain were obtained without intravenous contrast. COMPARISON: CT head without contrast 06/28/2024. FINDINGS: BRAIN AND EXTRA-AXIAL SPACES: Excessive motion degradation. Old hemorrhagic ischemic infarct in the right subinsular white matter extending to the right periventricular white matter. Old ischemic infarct with cystic encephalomalacia and atrophy in the posterior right middle temporal gyrus. Multiple T2 FLAIR hyperintensity foci in the white matter of both renal hemispheres are chronic white matter ischemic changes. No intracranial mass or mass effect. Posterior fossa structures are unremarkable. No hydrocephalus. Basal cisterns are patent. SELLA: Unremarkable. Normal sella turcica, pituitary gland, infundibular stalk, optic chiasm and hypothalamus. AUDITORY SYSTEM: Unremarkable. The internal auditory canals are patent. BONES/JOINTS: Unremarkable. No discrete lytic or blastic abnormalities. SINUSES: Unremarkable as visualized. Clear. MASTOID AIR CELLS: Unremarkable as visualized. Clear. ORBITS: Unremarkable as visualized. Both globes, extraocular muscles, optic nerves and retrobulbar fat appear unremarkable. VASCULATURE: Unremarkable as visualized. Normal flow voids in the major intracranial circulation. MRI/Brain without Contrast IMPRESSION: 1. Limited study due to excessive motion. 2. No suspicious acute or subacute ischemic infarct throughout the brain parenchyma. 3. Old hemorrhagic ischemic infarct with atrophy along the right periventricular white matter and right subinsular white matter and old ischemic infarct with cystic encephalomalacia and atrophy in the posterior right middle temporal gyrus. 4. Multiple chronic white matter ischemic changes in both cerebral hemispheres. Electronically Signed: Mateo Whitmore MD at 11:14 EST ,
--- NOTE | 2024-06-29 09:36 | CASEMGMT ---
SW called patient's sister in law and healthcare BOZENA Javier. SW confirmed the plan is for patient to return to [facility] at discharge. Concepcion said no one notified her that patient was admitted. NAIMA told her patient was admitted and is on the Progressive Care Unit room 105. SW offered to see if the nurse could call her and update her on patient's medical condition. Concepcion said she would appreciate that. SW notified RN. Plan: d/c back to [facility] when medically ready. Leanne DANIEL
--- NOTE | 2024-06-29 09:50 | CASEMGMT ---
Discharge Planning Updates sent to [facility]. Requested weekend phone/fax. Nae Burch DC Planning Asst.
--- NOTE | 2024-06-29 10:18 | CON.PCM.NE_ITS ---
Assessment and Plan: Neuro Assessment/Plan MARILY WOLFE is a 58 M with a past medical history of prior stroke, htn, ESRD, being evaluated by Teleneurology for seizure, AMS. MRI Brain shows known chronic right sided strokes, no new findings. Labs are thus far unremarkable except for known kidney disease. Possibly AMS related to ?GI illness given vomiting which could also lower the seizure threshold. Could also consider medication effect as he is on several neuro active medications. Seizures are also a possibility, will need to evaluate further with rEEG. Diagnosis: New onset seizure, altered mental status Plan: - rEEG - Check B12, Folate, TSH - Drug screen I personally attended this patient and spent a total time of 35 minutes evaluating this patient including clinical assessment, review of chart, medical history imaging, and determining appropriate treatment and workup. HPI Consult Data Date of Consult: 06/29/24 HPI Narrative HPI Narrative: MARILY WOLFE, is a 58 M with history of R MCA stroke with prior hemorrhage, HTN, PKD, ESRD on iHD, T2DM, Cocaine abusewho presents for altered mental status. He has a history of R hemispheric stroke with chronic left sided weakness. Resides at a [facility]. He was not feeling well the last few days, reportedly found altered by staff. He had been vomiting as well. Presented to the ER and was observed by nursing to have a short ~ 30 second GTC. He was agitated over night and this morning but responding to staff. He received 2 mg Ativan shortly before my evaluation so limited responsiveness. At baseline he is typically responsive, able to answer questions/follow commands and at least AOx2. [facility] Medical History (Updated 06/28/24 @ 22:50 by Laure Barros) Myocardial infarct Anxiety Kidney disease Diabetes Stroke/cerebrovascular accident Home Medications ?Medication ?Instructions ?Recorded ?Last Taken ?Type acetaminophen 325 mg capsule 650 mg PO Q4H PRN fever or pain 06/28/24 Unknown History acetaminophen 650 mg rectal 650 mg [place] Q4H PRN fever 06/28/24 Unknown History suppository bisacodyl 10 mg rectal suppository 10 mg [place] DAILY PRN constipation 06/28/24 Unknown History brimonidine 0.2 % eye drops 1 drp ophthalmic (eye) BID 06/28/24 Unknown History buspirone 5 mg tablet 5 mg PO TID ANXIETY 06/28/24 Unknown History carvedilol 25 mg tablet 50 mg PO BID 06/28/24 Unknown History cholecalciferol (vitamin D3) 1,250 1,250 mcg PO QWEEK 06/28/24 Unknown History mcg (50,000 unit) capsule clonidine 0.3 mg/24 hr weekly 1 patch transdermal QWEEK 06/28/24 Unknown History transdermal patch dorzolamide 22.3 mg-timolol 6.8 1 drp ophthalmic (eye) Q12H 06/28/24 Unknown History mg/mL eye drops escitalopram oxalate 10 mg tablet 10 mg PO DAILY 06/28/24 Unknown History (Lexapro) gabapentin 300 mg capsule 300 mg PO DAILY 06/28/24 Unknown History glucagon 1 mg solution for 1 mg subcut X1 06/28/24 Unknown History injection (Glucagon Emergency Kit) guaifenesin 100 mg/5 mL oral 200 mg PO Q4H PRN congestion 06/28/24 Unknown History liquid (Adult Tussin Chest Congestion) hydralazine 100 mg tablet 100 mg PO TID 06/28/24 Unknown History insulin glargine 100 unit/mL (3 10 unit subcut QHS 06/28/24 Unknown History mL) subcutaneous pen (Lantus Solostar U-100 Insulin) insulin lispro 100 unit/mL 1 unit subcut .COMPLEX 06/28/24 Unknown History subcutaneous pen (Humalog KwikPen (U-100) Insulin) latanoprost 0.005 % eye drops 1 drp ophthalmic (eye) QHS 06/28/24 Unknown History lorazepam 0.5 mg tablet (Ativan) 0.5 mg PO Q12H PRN anxiety 06/28/24 Unknown History magnesium hydroxide 400 mg/5 mL 30 ml PO DAILY PRN constipation 06/28/24 Unknown History oral suspension (Milk of Magnesia) melatonin 5 mg tablet 5 mg PO QHS 06/28/24 Unknown History mirtazapine 15 mg tablet 15 mg PO QHS 06/28/24 Unknown History nifedipine 90 mg tablet,extended 90 mg PO DAILY 06/28/24 Unknown History release pantoprazole 20 mg tablet,delayed 20 mg PO DAILY 06/28/24 Unknown History release sevelamer carbonate 800 mg tablet 800 mg PO TID 06/28/24 Unknown History sodium phosphates 19 gram-7 118 ml [place] DAILY PRN constipation 06/28/24 Unknown History gram/118 mL enema (Enema) trazodone 100 mg tablet 100 mg PO QHS 06/28/24 Unknown History vitamin B complex-vitamin C-folic 1 tab PO DAILY 06/28/24 Unknown History acid 0.8 mg tablet (Melony-Barrett) Allergy/AdvReac Type Severity Reaction Status Date / Time tramadol Allergy Unknown PT UNABLE Verified 06/28/24 16:17 TO RESPOND-NEEDS F/U lisinopril Allergy PT UNABLE Verified 06/28/24 16:17 TO RESPOND-NEEDS F/U Family History unable to obtain Surgical History unable to obtain Social History Smoking Status: Unknown if ever smoked Vital Signs Vital Signs Vital Signs: 06/28/24 16:17 06/28/24 16:22 06/28/24 17:06 Temperature 97 F L Temperature Source Temporal Pulse Rate 74 77 Respiratory Rate 15 14 Respiratory Effort Normal Respiratory Depth Normal Respiratory Pattern Normal Blood Pressure 209/65 H 211/86 H Blood Pressure Mean 113 127 Blood Pressure Source Blood Pressure Position Blood Pressure Location Pulse Ox 95 92 93 Oxygen Delivery Method Room Air Room Air 06/28/24 17:35 06/28/24 18:06 06/28/24 19:11 Temperature Temperature Source Pulse Rate 72 Respiratory Rate 19 H Respiratory Effort Respiratory Depth Respiratory Pattern Blood Pressure 175/87 H 201/94 H 197/151 H Blood Pressure Mean 116 129 166 Blood Pressure Source Blood Pressure Position Blood Pressure Location Pulse Ox 97 Oxygen Delivery Method 06/28/24 19:20 06/28/24 19:27 06/28/24 19:27 Temperature Temperature Source Pulse Rate 78 83 Respiratory Rate 31 H 19 H Respiratory Effort Respiratory Depth Respiratory Pattern Blood Pressure 198/111 H 198/111 H Blood Pressure Mean 140 135 Blood Pressure Source Blood Pressure Position Blood Pressure Location Pulse Ox 95 98 Oxygen Delivery Method 06/28/24 19:30 06/28/24 19:34 06/28/24 19:45 Temperature Temperature Source Pulse Rate 82 78 73 Respiratory Rate 13 10 L 12 Respiratory Effort Respiratory Depth Respiratory Pattern Blood Pressure 165/81 H 173/84 H Blood Pressure Mean 104 108 Blood Pressure Source Blood Pressure Position Blood Pressure Location Pulse Ox 96 95 97 Oxygen Delivery Method Room Air 06/28/24 20:00 06/28/24 20:15 06/28/24 20:30 Temperature Temperature Source Pulse Rate 78 73 78 Respiratory Rate 8 L 12 13 Respiratory Effort Respiratory Depth Respiratory Pattern Blood Pressure 188/102 H 199/116 H 199/116 H Blood Pressure Mean 127 134 141 Blood Pressure Source Blood Pressure Position Blood Pressure Location Pulse Ox 96 99 100 Oxygen Delivery Method Room Air Room Air Room Air 06/28/24 20:45 06/28/24 21:00 06/28/24 21:00 Temperature 98.1 F Temperature Source Pulse Rate 75 80 76 Respiratory Rate 10 L 15 15 Respiratory Effort Respiratory Depth Respiratory Pattern Blood Pressure 171/94 H 177/94 H Blood Pressure Mean 117 121 Blood Pressure Source Blood Pressure Position Blood Pressure Location Pulse Ox 97 99 97 Oxygen Delivery Method Room Air 06/28/24 21:42 06/28/24 22:25 06/28/24 23:58 Temperature 96.4 F L Temperature Source Temporal Pulse Rate 75 80 Respiratory Rate 16 18 Respiratory Effort Normal Non-Labored Respiratory Depth Normal Respiratory Pattern Normal Blood Pressure 176/106 H 188/101 H Blood Pressure Mean 129 130 Blood Pressure Source Monitor Blood Pressure Position Semi-Fowlers Blood Pressure Location Right Arm Pulse Ox 98 94 Oxygen Delivery Method Room Air Room Air Room Air 06/29/24 01:30 06/29/24 02:03 06/29/24 06:25 Temperature 97.3 F L 98.0 F Temperature Source Temporal Temporal Pulse Rate 63 80 Respiratory Rate 16 18 Respiratory Effort Normal Non-Labored Respiratory Depth Normal Respiratory Pattern Normal Blood Pressure 176/102 H 162/105 H Blood Pressure Mean 126 124 Blood Pressure Source Monitor Monitor Blood Pressure Position Semi-Fowlers Semi-Fowlers Blood Pressure Location Right Arm Left Leg Pulse Ox 99 97 Oxygen Delivery Method Room Air Room Air Room Air 06/29/24 07:52 06/29/24 08:20 06/29/24 09:20 Temperature 98.8 F Temperature Source Axillary Pulse Rate 64 Respiratory Rate 16 Respiratory Effort Normal Non-Labored Respiratory Depth Normal Respiratory Pattern Normal Blood Pressure 160/74 H Blood Pressure Mean 102 Blood Pressure Source Monitor Blood Pressure Position Semi-Fowlers Blood Pressure Location Left Leg Pulse Ox 95 97 Oxygen Delivery Method Room Air Room Air Room Air 06/29/24 10:01 06/29/24 10:11 Temperature Temperature Source Pulse Rate 63 65 Respiratory Rate 18 18 Respiratory Effort Respiratory Depth Respiratory Pattern Blood Pressure 164/81 H 149/99 H Blood Pressure Mean 108 115 Blood Pressure Source Monitor Monitor Blood Pressure Position Supine Supine Blood Pressure Location Right Arm Right Arm Pulse Ox 93 98 Oxygen Delivery Method Room Air Room Air Weight Weight: 63 kg Body Mass Index (BMI) 21.1 EEG Results Procedure Details EEG Procedure Details: MARILY WOLFE is a 58 year old M with a past medical history of , who presents for evaluation of Electroencephalogram on DATE at TIME Physical Exam Neuro Neuro Narrative: Exam perfromed shortly after 2 mg IV ativan given for MRI. Briefly opens eyes to voice, not following commands. Face grossly symmetric, PERRL, Dolls intact, Corneal intact, no blink to threat. Grimaces to pain. Responsive to pain in R arm and bilateral legs. Spontaneous movement RUE/RLE antigravity. Some spontanious movement of left leg. Lab / Micro Data 06/28/24 16:30 06/28/24 16:30 Labs: Laboratory Results - last 24 hr 06/28/24 16:30: WBC 8.5, RBC 3.71 L, Hgb 11.3 L, Hct 33.8 L, MCV 91.1, MCH 30.5, MCHC 33.4, RDW Std Deviation 51.5 H, RDW Coeff of Tae 15.4 H, Plt Count 295, MPV 10.1, Immature Gran % (Auto) 0.500, Neut % (Auto) 77.1 H, Lymph % (Auto) 11.2 L, Woodruff % (Auto) 9.3, Eos % (Auto) 1.1, Baso % (Auto) 0.8, Absolute Neuts (auto) 6.5, Absolute Lymphs (auto) 0.95, Nucleated RBC % 0, Sodium 137, Potassium 4.4, Chloride 95 L, Carbon Dioxide 36.0 H, Anion Gap 6, BUN 33 H, Creatinine 7.82 H*, Estim Creat Clear Calc 9.15, Est GFR (MDRD) Af Amer 9 L, Est GFR (MDRD) Non-Af 8 L, BUN/Creatinine Ratio 4.2 L, Glucose 184 H, Calcium 10.0 06/29/24 06:18: POC Glucose 140 H Micro: Microbiology 06/28/24 16:54 Mucosa - Nose SARS-CoV-2, Influenza & RSV (PCR) - Final ABG Data ABG results: ABG 06/28/24 17:32 Specimen Type PILY VBG pH 7.47 H VBG pO2 35 VBG HCO3 33 H VBG Total CO2 34 H VBG O2 Sat (Calc) 71 H VBG Base Excess 9 H POC Mix VBG pCO2 Pt Tmp 44.6 O2 Delivery Device RA Imaging Radiology Impression Brain CT 06/28/24 16:22 IMPRESSION: No acute intracranial abnormality. Right frontoparietal encephalomalacia. Chronic involutional and ischemic changes of the brain. Electronically Signed: Eugenio Richardson MD at 17:01 EST , Cervical Spine CT 06/28/24 16:22 IMPRESSION: No evidence of acute cervical spinal fracture or spondylolisthesis. Electronically Signed: Eugenio Richardson MD at 17:02 EST , Chest X-Ray 06/28/24 16:35 IMPRESSION: No acute radiographic abnormalities. Electronically Signed: Eugenio Richardson MD at 17:02 EST , Active Medications Active Medications Active Medications: Current Medications Generic Name Dose Route Start Last Admin Trade Name Freq PRN Reason Stop Dose Admin Acetaminophen 650 mg 06/28/24 22:18 Acetaminophen 325 Mg Tablet PO Q6H PRN PRN Pain 1-10 Or Fever>100.7 Bisacodyl 10 mg 06/28/24 22:18 Bisacodyl 10 Mg Suppository RC DAILY PRN constipation Brimonidine Tartrate 1 drp 06/28/24 22:18 06/28/24 23:40 Brimonidine 0.2% 5ml Bottle EACH EYE Not Given BID INDIO Buspirone HCl 5 mg 06/28/24 22:18 06/29/24 06:26 Buspirone 5 Mg Tablet PO Not Given TID INDIO Carvedilol 25 mg 06/28/24 22:18 06/29/24 09:43 Carvedilol 25 Mg Tablet PO Not Given BID [facility] Protocol Clonidine HCl 0.3 mg 07/04/24 10:00 Clonidine Hcl 0.3 Mg Patch TD QWEEK [facility] Dorzolamide/Timolol 1 drp 06/28/24 22:18 06/28/24 23:41 Dorzolamide Hcl/Timolol 10 Ml Bottle OPHTHALMIC Not Given Q12 [facility] Escitalopram Oxalate 10 mg 06/29/24 10:00 06/29/24 09:44 Escitalopram Oxalate 10 Mg Tablet PO Not Given DAILY [facility] Gabapentin 300 mg 06/29/24 10:00 Gabapentin 300 Mg Capsule PO DAILY [facility] Glucagon 1 mg 06/29/24 00:04 Glucagon 1 Mg/Ml Syringe IM X1 PRN Hypoglycemia Protocol Guaifenesin 10 ml 06/28/24 22:18 Guaifenesin 10 Ml Udc (200mg/10ml) PO Q4H PRN PRN congestion Heparin Sodium (Porcine) 5,000 unit 06/29/24 06:00 06/29/24 06:30 Heparin Injection (Vial) 5,000 Unit/Ml Vial SC 5,000 unit Q8 [facility] Administration Hydralazine HCl 100 mg 06/28/24 22:12 06/29/24 06:26 Hydralazine 50 Mg Tablet PO Not Given TID INDIO Sodium Chloride 100 mls @ 15 mls/hr 06/28/24 22:20 IV .Q6H40M PRN Saline Flush Sodium Chloride 100 mls @ 15 mls/hr 06/28/24 22:20 IV .Q6H40M PRN Additional IVPB Infusion Dextrose 250 mls @ 0 mls/hr 06/29/24 00:04 Dextrose 10%-Water IV .Q0M PRN HYPOGLYCEMIA Protocol As Directed Insulin Human Lispro 0 unit 06/29/24 06:00 06/29/24 06:26 Insulin Lispro 100 Unit/Ml Insuln.Pen SC Not Given Q6 [facility] Protocol Labetalol HCl 20 mg 06/28/24 23:11 Labetalol 20mg/4ml Syringe IV Q4H PRN PRN SBP GREATER THAN 180 Protocol Latanoprost 1 drp 06/28/24 22:18 06/28/24 23:42 Latanoprost 0.005% 1 Bottle EACH EYE Not Given QHS [facility] Melatonin 5 mg 06/28/24 22:30 06/28/24 23:42 Melatonin 10 Mg Tablet PO Not Given QHS [facility]IO Mirtazapine 15 mg 06/28/24 22:18 06/28/24 23:42 Mirtazapine 15 Mg Tablet PO Not Given QHS [facility]IO Nifedipine 90 mg 06/29/24 10:00 06/29/24 09:44 Nifedipine 90 Mg Tablet PO Not Given DAILY [facility] Protocol Ondansetron HCl 4 mg 06/28/24 22:18 Ondansetron 4 Mg/2 Ml Vial IV Q8H PRN PRN NAUSEA/VOMITING Pantoprazole Sodium 20 mg 06/29/24 10:00 06/29/24 09:44 Pantoprazole Sodium 20 Mg Tablet PO Not Given DAILY INDIO Sevelamer Carbonate 800 mg 06/29/24 08:00 06/29/24 09:43 Sevelamer Carbonate 800 Mg Tablet PO Not Given TIDCM INDIO Sodium Chloride 10 - 40 ml 06/28/24 22:20 06/29/24 09:21 0.9% Saline Lock 10 Ml Syringe IV 10 ml UD PRN Administration SALINE FLUSH Trazodone HCl 100 mg 06/28/24 22:18 06/28/24 23:41 Trazodone 100 Mg Tablet PO Not Given QHS INDIO
[2024-06-29 11:44] LABS: Bedside Glucose 155 mg/dL (74-106)
[2024-06-29] MEDS: 0.9% Normal Saline 1,000 ML IV.SOLN. 1000 ML OPERA.SITE (11:46)
[2024-06-29] MEDS: PureFlow B 2K Dialysis Soln 1 BAG 6 BAG PF (11:46)
[2024-06-29 12:11] LABS: Hematocrit 29.9 % (40-54); Hemoglobin 10.1 g/dL (13.0-16.5); Mean Corp Hgb Conc 33.8 g/dL (32-36); Mean Corpuscular Hgb 30.5 pg (27.0-32.0); Mean Corpuscular Volume 90.3 fL (80-94); Mean Platelet Vol. 10.7 fl (6.2-12.0); Platelet Count 235 K/mm3 (150-450); RBC Distribution Width CV 15.3 % (11.6-14.6); RBC Distribution Width SD 50.5 fl (35.1-43.9); Red Blood Count 3.31 M/mm3 (4.6-6.2); White Blood Count 5.7 K/mm3 (4.4-11.0)
[2024-06-29 12:56] LABS: Anion Gap 7 (5-15); BUN 41 mg/dL (7-18); BUN/Creat Ratio 4.5 RATIO (10-20); Chloride 100 mmol/L (98-107); Creatinine, Serum 9.18 mg/dL (0.70-1.30); EST Glomerular Filtration Rate 6 mL/min (>60); Est Glom Filt Rate - Afr Amer 8 mL/min (>60); Estimated Creatinine Clearance 7.82 ml/min; Glucose 161 mg/dL (74-106); Potassium 4.3 mmol/L (3.5-5.1); Sodium Level 138 mmol/L (136-145)
--- NOTE | 2024-06-29 12:59 | CASEMGMT ---
Discharge Planning [facility] notified that pt could potentially return over the weekend. Green sheet completed and given to NAIMA. Nae Burch DC Planning Asst.
[2024-06-29] MEDS: hydrALAZINE 20 MG/ML Vial 10 MG IV (15:36)
[2024-06-29 16:59] LABS: Bedside Glucose 154 mg/dL (74-106)
--- NOTE | 2024-06-29 18:13 | PCM.CONS.R ---
Assessment & Plan Assessment/Plan (1) History of end stage renal disease: PLAN: As outpatient, gets dialysis Tuesday, Tuesday, Tuesday. Seen on dialysis today. Somewhat sleepy, discussed with staff, received Ativan. Status post MRI. Neurology on consult for management of seizures. HPI Consult Data Date of Consult: 06/29/24 HPI Narrative Reason for Consultation: ESRD HPI Narrative: MARILY WOLFE, is a 58 M who presents To the hospital with seizures. Nephrology on consultation in view of ESRD. On hemodialysis Tuesday, Tuesday, Tuesday schedule. Had MRI this morning. Somewhat sleepy since he received Ativan. Seen on dialysis today. [facility] Medical History (Updated 06/28/24 @ 22:50 by Laure Barros) Myocardial infarct Anxiety Kidney disease Diabetes Stroke/cerebrovascular accident Home Medications ?Medication ?Instructions ?Recorded ?Last Taken ?Type acetaminophen 325 mg capsule 650 mg PO Q4H PRN fever or pain 06/28/24 Unknown History acetaminophen 650 mg rectal 650 mg [place] Q4H PRN fever 06/28/24 Unknown History suppository bisacodyl 10 mg rectal suppository 10 mg [place] DAILY PRN constipation 06/28/24 Unknown History brimonidine 0.2 % eye drops 1 drp ophthalmic (eye) BID 06/28/24 Unknown History buspirone 5 mg tablet 5 mg PO TID ANXIETY 06/28/24 Unknown History carvedilol 25 mg tablet 50 mg PO BID 06/28/24 Unknown History cholecalciferol (vitamin D3) 1,250 1,250 mcg PO QWEEK 06/28/24 Unknown History mcg (50,000 unit) capsule clonidine 0.3 mg/24 hr weekly 1 patch transdermal QWEEK 06/28/24 Unknown History transdermal patch dorzolamide 22.3 mg-timolol 6.8 1 drp ophthalmic (eye) Q12H 06/28/24 Unknown History mg/mL eye drops escitalopram oxalate 10 mg tablet 10 mg PO DAILY 06/28/24 Unknown History (Lexapro) gabapentin 300 mg capsule 300 mg PO DAILY 06/28/24 Unknown History glucagon 1 mg solution for 1 mg subcut X1 06/28/24 Unknown History injection (Glucagon Emergency Kit) guaifenesin 100 mg/5 mL oral 200 mg PO Q4H PRN congestion 06/28/24 Unknown History liquid (Adult Tussin Chest Congestion) hydralazine 100 mg tablet 100 mg PO TID 06/28/24 Unknown History insulin glargine 100 unit/mL (3 10 unit subcut QHS 06/28/24 Unknown History mL) subcutaneous pen (Lantus Solostar U-100 Insulin) insulin lispro 100 unit/mL 1 unit subcut .COMPLEX 06/28/24 Unknown History subcutaneous pen (Humalog KwikPen (U-100) Insulin) latanoprost 0.005 % eye drops 1 drp ophthalmic (eye) QHS 06/28/24 Unknown History lorazepam 0.5 mg tablet (Ativan) 0.5 mg PO Q12H PRN anxiety 06/28/24 Unknown History magnesium hydroxide 400 mg/5 mL 30 ml PO DAILY PRN constipation 06/28/24 Unknown History oral suspension (Milk of Magnesia) melatonin 5 mg tablet 5 mg PO QHS 06/28/24 Unknown History mirtazapine 15 mg tablet 15 mg PO QHS 06/28/24 Unknown History nifedipine 90 mg tablet,extended 90 mg PO DAILY 06/28/24 Unknown History release pantoprazole 20 mg tablet,delayed 20 mg PO DAILY 06/28/24 Unknown History release sevelamer carbonate 800 mg tablet 800 mg PO TID 06/28/24 Unknown History sodium phosphates 19 gram-7 118 ml [place] DAILY PRN constipation 06/28/24 Unknown History gram/118 mL enema (Enema) trazodone 100 mg tablet 100 mg PO QHS 06/28/24 Unknown History vitamin B complex-vitamin C-folic 1 tab PO DAILY 06/28/24 Unknown History acid 0.8 mg tablet (Melony-Barrett) Allergy/AdvReac Type Severity Reaction Status Date / Time tramadol Allergy Unknown PT UNABLE Verified 06/28/24 16:17 TO RESPOND-NEEDS F/U lisinopril Allergy PT UNABLE Verified 06/28/24 16:17 TO RESPOND-NEEDS F/U Family History unable to obtain Surgical History unable to obtain Social History Smoking Status: Unknown if ever smoked ROS Review of Systems ROS Unobtainable: due to encephalopathy Physical Exam Narrative no obvious distress no pallor no icterus no JVD s1s2 no murmurs lungs clear abdomen soft no organomegaly no edema no cyanosis Lab / Micro Data 06/29/24 11:09 06/29/24 11:09 Labs: Laboratory Results - last 24 hr 06/29/24 06:18: POC Glucose 140 H 06/29/24 11:09: WBC 5.7, RBC 3.31 L, Hgb 10.1 L, Hct 29.9 L, MCV 90.3, MCH 30.5, MCHC 33.8, RDW Std Deviation 50.5 H, RDW Coeff of Tae 15.3 H, Plt Count 235, MPV 10.7, Sodium 138, Potassium 4.3, Chloride 100, Carbon Dioxide 31.0, Anion Gap 7, BUN 41 H, Creatinine 9.18 H*, Estim Creat Clear Calc 7.82, Est GFR (MDRD) Af Amer 8 L, Est GFR (MDRD) Non-Af 6 L, BUN/Creatinine Ratio 4.5 L, Glucose 161 H, Calcium 10.0 06/29/24 11:17: POC Glucose 155 H 06/29/24 16:39: POC Glucose 154 H Micro: Microbiology 06/28/24 16:54 Mucosa - Nose SARS-CoV-2, Influenza & RSV (PCR) - Final Imaging Radiology Impression Brain MRI 06/29/24 09:30 IMPRESSION: 1. Limited study due to excessive motion. 2. No suspicious acute or subacute ischemic infarct throughout the brain parenchyma. 3. Old hemorrhagic ischemic infarct with atrophy along the right periventricular white matter and right subinsular white matter and old ischemic infarct with cystic encephalomalacia and atrophy in the posterior right middle temporal gyrus. 4. Multiple chronic white matter ischemic changes in both cerebral hemispheres. Electronically Signed: Mateo Whitmore MD at 11:14 EST ,
[2024-06-30] VITALS (12 sets, daily range): BP systolic 140–183; BP diastolic 69–105; PULSE 63–84; RESP 14–18; TEMP 36.2–36.9; O2SAT 95–100
[2024-06-30 00:59] LABS: Bedside Glucose 129 mg/dL (74-106)
[2024-06-30] MEDS: 0.9% Saline Lock 10 ML Syringe IV ×3 (01:41→14:14)
[2024-06-30] MEDS: LORazepam 2 MG/ML Syringe 1 MG IV (01:41)
[2024-06-30 06:30] LABS: Absolute Lymphocyte Count 0.91 X10^3/uL (0.83-4.51); Absolute Neutrophil Count 4.9 X10^3/uL (2.0-7.7); Basophil# 0.07 X10^3/uL; Eosinophil# 0.11 X10^3/uL; Eosinophils% 1.6 % (0-5); Hematocrit 31.4 % (40-54); Hemoglobin 10.6 g/dL (13.0-16.5); Lymphocyte # 0.91 X10^3/ul (0.83-4.51); Lymphocyte % 13.3 % (19-41); Mean Corp Hgb Conc 33.8 g/dL (32-36); Mean Corpuscular Hgb 30.4 pg (27.0-32.0); Mean Platelet Vol. 10.3 fl (6.2-12.0); Monocyte# 0.81 X10^3/uL; Monocyte% 11.8 % (0-10); NRBC Flagged by Analyzer 0 % (0-5); Neutrophil # 4.92 X10^3/uL (2.7-7.7); Neutrophil % 71.9 % (47-70); Platelet Count 251 K/mm3 (150-450); RBC Distribution Width SD 49.3 fl (35.1-43.9); Red Blood Count 3.49 M/mm3 (4.6-6.2); White Blood Count 6.9 K/mm3 (4.4-11.0)
[2024-06-30] MEDS: Heparin Injection (Vial) 5,000 UNIT/ML VIAL 5000 UNIT SC ×2 (06:59→14:14)
[2024-06-30 07:23] LABS: Bedside Glucose 126 mg/dL (74-106)
[2024-06-30 07:37] LABS: Anion Gap 7 (5-15); BUN 34 mg/dL (7-18); BUN/Creat Ratio 4.4 RATIO (10-20); Calcium,Total 9.9 mg/dL (8.5-10.1); Chloride 103 mmol/L (98-107); EST Glomerular Filtration Rate 8 mL/min (>60); Est Glom Filt Rate - Afr Amer 9 mL/min (>60); Glucose 141 mg/dL (74-106); Magnesium 2.7 mg/dL (1.6-2.6); Potassium 4.3 mmol/L (3.5-5.1); Sodium Level 138 mmol/L (136-145)
--- NOTE | 2024-06-30 10:40 | PN.HOSP_ITS ---
Reason for Visit Reason for Visit: Diagnoses Encephalopathy, unspecified (06/28/24) Unspecified convulsions (06/28/24) Personal history of other diseases of urinary system (06/28/24) Subjective Subjective Patient has remained significantly lethargic following Ativan administration for his MRI. Per nursing staff patient has been restless. Did request for a sitter to be placed in patient's room to prevent accidental falls Objective Data Objective Data Vital Signs: Vital Signs Temp Pulse Resp BP Pulse Ox O2 Del Method 98.5 F 77 18 183/95 H 95 Room Air 06/30/24 10:07 06/30/24 10:07 06/30/24 10:07 06/30/24 10:07 06/30/24 10:07 06/30/24 10:07 Oxygen Delivery Method Room Air Weight: 61.5 kg Body Mass Index (BMI) 20.5 Intake & Output: Intake and Output for Last 24 Hours 06/28/24 06/29/24 06/30/24 23:59 23:59 23:59 Intake Total 1060.7 / 1060.7 0 / 0 0 / 0 Output Total 1490 / 1490 Balance 1060.7 / 1060.7 -1490 / -1490 0 / 0 Lab / Micro Data 06/30/24 05:55 06/30/24 05:55 Labs: Laboratory Results - last 24 hr 06/29/24 11:09: WBC 5.7, RBC 3.31 L, Hgb 10.1 L, Hct 29.9 L, MCV 90.3, MCH 30.5, MCHC 33.8, RDW Std Deviation 50.5 H, RDW Coeff of Tae 15.3 H, Plt Count 235, MPV 10.7, Sodium 138, Potassium 4.3, Chloride 100, Carbon Dioxide 31.0, Anion Gap 7, BUN 41 H, Creatinine 9.18 H*, Estim Creat Clear Calc 7.82, Est GFR (MDRD) Af Amer 8 L, Est GFR (MDRD) Non-Af 6 L, BUN/Creatinine Ratio 4.5 L, Glucose 161 H, Calcium 10.0 06/29/24 11:17: POC Glucose 155 H 06/29/24 16:39: POC Glucose 154 H 06/30/24 00:33: POC Glucose 129 H 06/30/24 05:55: WBC 6.9, RBC 3.49 L, Hgb 10.6 L, Hct 31.4 L, MCV 90.0, MCH 30.4, MCHC 33.8, RDW Std Deviation 49.3 H, RDW Coeff of Tae 15.0 H, Plt Count 251, MPV 10.3, Immature Gran % (Auto) 0.400, Neut % (Auto) 71.9 H, Lymph % (Auto) 13.3 L, [place] % (Auto) 11.8 H, Eos % (Auto) 1.6, Baso % (Auto) 1.0, Absolute Neuts (auto) 4.9, Absolute Lymphs (auto) 0.91, Nucleated RBC % 0, Sodium 138, Potassium 4.3, Chloride 103, Carbon Dioxide 29.0, Anion Gap 7, BUN 34 H, Creatinine 7.70 H*, Estim Creat Clear Calc 9.10, Est GFR (MDRD) Af Amer 9 L, Est GFR (MDRD) Non-Af 8 L, BUN/Creatinine Ratio 4.4 L, Glucose 141 H, Calcium 9.9, Phosphorus 4.0, M agnesium 2.7 H 06/30/24 06:57: POC Glucose 126 H Micro: Microbiology 06/28/24 16:54 Mucosa - Nose SARS-CoV-2, Influenza & RSV (PCR) - Final Radiography Diagnostic Testing: Radiology Impression Brain MRI 06/29/24 09:30 IMPRESSION: 1. Limited study due to excessive motion. 2. No suspicious acute or subacute ischemic infarct throughout the brain parenchyma. 3. Old hemorrhagic ischemic infarct with atrophy along the right periventricular white matter and right subinsular white matter and old ischemic infarct with cystic encephalomalacia and atrophy in the posterior right middle temporal gyrus. 4. Multiple chronic white matter ischemic changes in both cerebral hemispheres. Electronically Signed: Mateo Whitmore MD at 11:14 EST , Physical Exam Narrative GENERAL: Patient awake but refuses to respond to any questions HEENT: Atraumatic; normocephalic EYES; Anicteric, Normal Conjunctiva NECK; supple, normal thyroid, RESPIRATORY: Diminished to auscultation CARDIOVASCULAR: Regular S1 S2, GI: soft, normoactive bowel sounds, : No Renal angle tenderness; EXTREMITIES: No edema, no clubbing, MUSCULOSKELETAL: no muscle wasting NEURO: Awake; no lateralizing signs. SKIN: No Rash PSYCH; Flat affect Const alert and no apparent distress Constitutional Narrative: Middle-age male, appears older than stated age, thin and cachectic, chronically ill-appearing, laying comfortably on side and eyes open but patient not tracking with his eyes or following any commands for me. General Appearance: comfortable HEENT normocephalic, head/scalp atraumatic and nasal mucous membranes and turbinates normal Eyes PERRL, EOMs intact bilaterally and conjunctivae normal Chest inspection of chest normal Resp normal respiratory effort and no use of accessory muscles Resp Narrative: Breathing comfortably on room air at rest. Good breath sounds bilaterally throughout, no wheezing or crackles noted. Cardio regular rate, regular rhythm, no murmurs and peripheral pulses 2+ throughout GI normal to inspection, nondistended, normoactive bowel sounds, soft to palpation, non-tender and non-distended Back/Spine normal ROM Skin no rashes or lesions noted Neuro Neuro Narrative: Chronic left upper extremity contracture. Assessment & Plan Assessment/Plan (1) Encephalopathy: (2) Generalized convulsive seizure: PLAN: Plan Patient is a 58-year-old gentleman with history of CVA with chronic left arm contracture and general debility admitted with encephalopathy following tonic- clonic seizure 1. Acute encephalopathy following tonic-clonic seizure ? Patient did receive Ativan and Depacon in the ED ; admitted to the progressive care unit teleneurology consulted. CT brain showed right frontoparietal encephalomalacia, was otherwise nonacute. Given IV Ativan and Depacon in the ED after witnessed tonic-clonic seizure. Per neurology recommendations, MRI brain without contrast and spot EEG ordered. Subsequent antiepileptic therapy deferred to teleneuro 06/30/2024; MRI did show No suspicious acute or subacute ischemic infarct throughout the brain parenchyma. Old hemorrhagic ischemic infarct with atrophy along the right periventricular white matter and right subinsular white matter and old ischemic infarct with cystic encephalomalacia and atrophy in the posterior right middle temporal gyrus. Multiple chronic white matter ischemic changes in both cerebral hemispheres. Awaiting results of patient EEG. Patient still remains significantly lethargic did request for nursing staff to have a sitter by the patient in the room. 2. History of CVA with chronic left arm contracture and general debility ? Case management consulted. Patient resides at [facility] for chronic debility secondary to CVA with left-sided deficits. Presume patient will be okay for going back to [facility] on discharge. 3. ESRD on HD ? Nephrology consulted. On HD MWF, last session on 06/27. 4. Hypertension ? Hypertensive to the low 200 systolic in the ED. Continue home Coreg, clonidine patch, hydralazine, and nifedipine. IV hydralazine doses in the ED were not too effective so IV labetalol as needed ordered. ? Patient was placed on scheduled IV hydralazine given persistently elevated blood pressure 5. Suspected malnutrition ? Nutrition consulted. BMI 21 on admit but appears thin and cachectic on exam. Currently n.p.o. due to altered mentation as noted above. 6. Anxiety/depression ? Continue home escitalopram, BuSpar, mirtazapine and trazodone. 7. Type 2 diabetes mellitus ? Home regimen of Lantus 10 units at night with sliding scale insulin. Blood glucose 184 on admit. Last A1c 5.8% on 06/18. Patient n.p.o. as noted above. Will treat with sliding scale insulin every 6 hours for now, adjust as needed. 8. DVT prophylaxis subcu heparin Time spent in the patient's overall evaluation,decision-making process, review of diagnostic data, adjustment of management, discussion with other providers, nursing nursing and ancillary staff involved in patient's care documentation, 50 Minutes Charges/Coding Visit Charges Inpatient E&M: 25097 [facility] Hosp L3
--- NOTE | 2024-06-30 11:04 | PN.NEURO_ITS ---
Assessment and Plan: Neuro Assessment/Plan MARILY WOLFE is a 58 M being evaluated by Teleneurology for altered mental status and first time seizure. Seizure not clearly provoked and does have increased fredrick due to prior stroke. MRI with known prior R MCA stroke. EEG showed encephalopathy. His exam today with nearing baseline, following commands Oreinted to self but remains restless/agitated. Now suspect on going encephalopathy toxic metabolic encephalopathy in the setting of poor neurologic reserve and likely concomitant delirium, but consider thiamine def given cachexia on exam. Diagnosis: first time Seizure, resolved. Ongoing suspected toxic metabolic encephalopathy and likely delirium Plan: - would give high dose IV thiamine - if able to do so - Check B12, folate, B1, TSH - replace as indicated - Depakote 500 mg BID for seizure ppx - given history of stroke which increases risk for seizures. - Otherwise no further work up from neurology standpoint, we will sign off I personally attended this patient and spent a total time of minutes evaluating this patient including clinical assessment, review of chart, medical history imaging, and determining appropriate treatment and workup. Subject: Neurology Subjective MARILY WOLFE is a 58 year old M, who we are seeing in consultation today for advice on the management of altered mental status. EEG completed yesterday, consistent with encephalopathy. Exam improving today, now oriented to self and following commands. Remains restless and continuously tries to get out of bed. EEG Results Procedure Details EEG Procedure Details: MARILY WOLFE is a 58 year old M with a past medical history of , who presents for evaluation of Electroencephalogram on DATE at TIME Objective Data Objective Data Vital Signs: Vital Signs Temp Pulse Resp BP Pulse Ox O2 Del Method 98.5 F 77 18 183/95 H 95 Room Air 06/30/24 10:07 06/30/24 10:07 06/30/24 10:07 06/30/24 10:07 06/30/24 10:07 06/30/24 10:07 Oxygen Delivery Method Room Air Weight: 61.5 kg Body Mass Index (BMI) 20.5 Intake & Output: Intake and Output for Last 24 Hours 06/28/24 06/29/24 06/30/24 23:59 23:59 23:59 Intake Total 1060.7 / 1060.7 0 / 0 0 / 0 Output Total 1490 / 1490 Balance 1060.7 / 1060.7 -1490 / -1490 0 / 0 Lab / Micro Data 06/30/24 05:55 06/30/24 05:55 Labs: Laboratory Results - last 24 hr 06/29/24 11:09: WBC 5.7, RBC 3.31 L, Hgb 10.1 L, Hct 29.9 L, MCV 90.3, MCH 30.5, MCHC 33.8, RDW Std Deviation 50.5 H, RDW Coeff of Tae 15.3 H, Plt Count 235, MPV 10.7, Sodium 138, Potassium 4.3, Chloride 100, Carbon Dioxide 31.0, Anion Gap 7, BUN 41 H, Creatinine 9.18 H*, Estim Creat Clear Calc 7.82, Est GFR (MDRD) Af Amer 8 L, Est GFR (MDRD) Non-Af 6 L, BUN/Creatinine Ratio 4.5 L, Glucose 161 H, Calcium 10.0 06/29/24 11:17: POC Glucose 155 H 06/29/24 16:39: POC Glucose 154 H 06/30/24 00:33: POC Glucose 129 H 06/30/24 05:55: WBC 6.9, RBC 3.49 L, Hgb 10.6 L, Hct 31.4 L, MCV 90.0, MCH 30.4, MCHC 33.8, RDW Std Deviation 49.3 H, RDW Coeff of Tae 15.0 H, Plt Count 251, MPV 10.3, Immature Gran % (Auto) 0.400, Neut % (Auto) 71.9 H, Lymph % (Auto) 13.3 L, [place] % (Auto) 11.8 H, Eos % (Auto) 1.6, Baso % (Auto) 1.0, Absolute Neuts (auto) 4.9, Absolute Lymphs (auto) 0.91, Nucleated RBC % 0, Sodium 138, Potassium 4.3, Chloride 103, Carbon Dioxide 29.0, Anion Gap 7, BUN 34 H, Creatinine 7.70 H*, Estim Creat Clear Calc 9.10, Est GFR (MDRD) Af Amer 9 L, Est GFR (MDRD) Non-Af 8 L, BUN/Creatinine Ratio 4.4 L, Glucose 141 H, Calcium 9.9, Phosphorus 4.0, M agnesium 2.7 H 06/30/24 06:57: POC Glucose 126 H Micro: Microbiology 06/28/24 16:54 Mucosa - Nose SARS-CoV-2, Influenza & RSV (PCR) - Final Radiography Diagnostic Testing: Radiology Impression Brain MRI 06/29/24 09:30 IMPRESSION: 1. Limited study due to excessive motion. 2. No suspicious acute or subacute ischemic infarct throughout the brain parenchyma. 3. Old hemorrhagic ischemic infarct with atrophy along the right periventricular white matter and right subinsular white matter and old ischemic infarct with cystic encephalomalacia and atrophy in the posterior right middle temporal gyrus. 4. Multiple chronic white matter ischemic changes in both cerebral hemispheres. Electronically Signed: Mateo Whitmore MD at 11:14 EST , Physical Exam Neuro Neuro Narrative: Neuro exam: oriented to self, difficulty with year/place. Follows commands throughout. Answers simple questions appropriately. face grossly symmetric. toungue protrudes midline. Eyes closed and will not open to exam. Moves RUE/BL LE spontaneously, LUE no movement.
[2024-06-30] MEDS: LORazepam 2 MG/ML Syringe 0.5 MG IV ×2 (12:18→22:32)
[2024-06-30] MEDS: hydrALAZINE 20 MG/ML Vial IV ×2 (12:40→18:00)
--- NOTE | 2024-06-30 12:58 | NURSING ---
0800 assessment completed. Pt not following command. Pt eyes open. Contracted R arm. Jerking movenents noted. See full assessment documention Bed alarm. 0900 Pt restless trying get out of bed 1045 Sitter at bs 1100 Neuro doctor at bs pt following commands at this time. Raising arm. Stating name. Pt trying to get out of bed. Trying to redirect patient and assist patient back in bed 1200 Pt very agitated at this time trying to get out of bed. Dr. Guerrero contacted to come to bs. Dr. Guerrero at bs to assess 1258 Called Person to contact no answer
[2024-06-30 13:14] LABS: Bedside Glucose 127 mg/dL (74-106)
[2024-06-30 18:15] LABS: Bedside Glucose 126 mg/dL (74-106)
[2024-07-01] VITALS (13 sets, daily range): BP systolic 154–239; BP diastolic 70–120; PULSE 59–86; RESP 12–16; TEMP 36.4–36.8; O2SAT 94–100
[2024-07-01] MEDS: hydrALAZINE 20 MG/ML Vial IV ×4 (00:16→18:44)
[2024-07-01 00:24] LABS: Bedside Glucose 112 mg/dL (74-106)
[2024-07-01] MEDS: LORazepam 2 MG/ML Syringe 0.5 MG IV ×2 (06:35→22:29)
[2024-07-01] MEDS: Heparin Injection (Vial) 5,000 UNIT/ML VIAL 5000 UNIT SC ×3 (06:35→22:29)
[2024-07-01 06:41] LABS: Absolute Lymphocyte Count 1.01 X10^3/uL (0.83-4.51); Absolute Neutrophil Count 5.5 X10^3/uL (2.0-7.7); Basophil# 0.07 X10^3/uL; Basophil% 0.9 % (0-1); Eosinophil# 0.12 X10^3/uL; Eosinophils% 1.5 % (0-5); Hematocrit 31.2 % (40-54); Hemoglobin 10.4 g/dL (13.0-16.5); Lymphocyte # 1.01 X10^3/ul (0.83-4.51); Mean Corp Hgb Conc 33.3 g/dL (32-36); Mean Corpuscular Hgb 30.1 pg (27.0-32.0); Mean Corpuscular Volume 90.2 fL (80-94); Mean Platelet Vol. 10.5 fl (6.2-12.0); Monocyte# 1.01 X10^3/uL; NRBC Flagged by Analyzer 0 % (0-5); Neutrophil # 5.53 X10^3/uL (2.7-7.7); Neutrophil % 71.2 % (47-70); Platelet Count 243 K/mm3 (150-450); RBC Distribution Width CV 15.2 % (11.6-14.6); Red Blood Count 3.46 M/mm3 (4.6-6.2); White Blood Count 7.8 K/mm3 (4.4-11.0)
--- NOTE | 2024-07-01 07:28 | PN.HOSP_ITS ---
Reason for Visit Reason for Visit: Diagnoses Encephalopathy, unspecified (06/28/24) Unspecified convulsions (06/28/24) Personal history of other diseases of urinary system (06/28/24) Subjective Subjective Patient had to be placed in restraints following agitation and disruption in his care. Patient did fail a bedside swallow this a.m. [facility] teleneurology recommended starting patient on Depakote as well as thiamine Objective Data Objective Data Vital Signs: Vital Signs Temp Pulse Resp BP Pulse Ox O2 Del Method 97.5 F L 86 12 178/101 H 99 Room Air 07/01/24 03:00 07/01/24 06:34 07/01/24 03:00 07/01/24 06:34 07/01/24 03:00 07/01/24 03:00 Oxygen Delivery Method Room Air Weight: 61.5 kg Body Mass Index (BMI) 20.5 Intake & Output: Intake and Output for Last 24 Hours 06/29/24 06/30/24 07/01/24 23:59 23:59 23:59 Intake Total 0 / 0 0 / 0 0 / 0 Output Total 1490 / 1490 0 / 0 0 / 0 Balance -1490 / -1490 0 / 0 0 / 0 Lab / Micro Data 07/01/24 05:53 07/01/24 05:53 Labs: Laboratory Results - last 24 hr 06/30/24 05:55: Sodium 138, Potassium 4.3, Chloride 103, Carbon Dioxide 29.0, Anion Gap 7, BUN 34 H, Creatinine 7.70 H*, Estim Creat Clear Calc 9.10, Est GFR (MDRD) Af Amer 9 L, Est GFR (MDRD) Non-Af 8 L, BUN/Creatinine Ratio 4.4 L, G lucose 141 H, Calcium 9.9, Phosphorus 4.0, Magnesium 2.7 H 06/30/24 12:50: POC Glucose 127 H 06/30/24 17:49: POC Glucose 126 H 07/01/24 00:07: POC Glucose 112 H 07/01/24 05:53: WBC 7.8, RBC 3.46 L, Hgb 10.4 L, Hct 31.2 L, MCV 90.2, MCH 30.1, MCHC 33.3, RDW Std Deviation 50.0 H, RDW Coeff of Tae 15.2 H, Plt Count 243, MPV 10.5, Immature Gran % (Auto) 0.400, Neut % (Auto) 71.2 H, Lymph % (Auto) 13.0 L, [place] % (Auto) 13.0 H, Eos % (Auto) 1.5, Baso % (Auto) 0.9, Absolute Neuts (auto) 5.5, Absolute Lymphs (auto) 1.01, Nucleated RBC % 0 Micro: Microbiology 06/28/24 16:54 Mucosa - Nose SARS-CoV-2, Influenza & RSV (PCR) - Final Physical Exam Narrative GENERAL: Patient awake but refuses to respond to any questions HEENT: Atraumatic; normocephalic EYES; Anicteric, Normal Conjunctiva NECK; supple, normal thyroid, RESPIRATORY: Diminished to auscultation CARDIOVASCULAR: Regular S1 S2, GI: soft, normoactive bowel sounds, : No Renal angle tenderness; EXTREMITIES: No edema, no clubbing, MUSCULOSKELETAL: no muscle wasting NEURO: Awake; no lateralizing signs. SKIN: No Rash PSYCH; Flat affect Assessment & Plan Assessment/Plan (1) Encephalopathy: (2) Generalized convulsive seizure: PLAN: Plan Patient is a 58-year-old gentleman with history of CVA with chronic left arm contracture and general debility admitted with encephalopathy following tonic- clonic seizure 1. Acute encephalopathy following tonic-clonic seizure ? Patient did receive Ativan and Depacon in the ED ; admitted to the progressive care unit teleneurology consulted. CT brain showed right frontoparietal encephalomalacia, was otherwise nonacute. Given IV Ativan and Depacon in the ED after witnessed tonic-clonic seizure. Per neurology recommendations, MRI brain without contrast and spot EEG ordered. Subsequent antiepileptic therapy deferred to teleneuro 06/30/2024; MRI did show No suspicious acute or subacute ischemic infarct throughout the brain parenchyma. Old hemorrhagic ischemic infarct with atrophy along the right periventricular white matter and right subinsular white matter and old ischemic infarct with cystic encephalomalacia and atrophy in the posterior right middle temporal gyrus. Multiple chronic white matter ischemic changes in both cerebral hemispheres. Awaiting results of patient EEG. Patient still remains significantly lethargic did request for nursing staff to have a sitter by the patient in the room. ? 07/01/2024; [facility] recommended starting patient on Depakote for seizure prophylaxis as well as high-dose IV thiamine. Patient had to be placed in restraints given his agitation and disruption in his care. 2. History of CVA with chronic left arm contracture and general debility ? Case management consulted. Patient resides [facility] for chronic debility secondary to CVA with left-sided deficits. Presume patient will be okay for going back to [facility] on discharge. 3. ESRD on HD ? Nephrology consulted. On HD MWF, last session on 06/27. 4. Hypertension ? Hypertensive to the low 200 systolic in the ED. Continue home Coreg, clonidine patch, hydralazine, and nifedipine. IV hydralazine doses in the ED were not too effective so IV labetalol as needed ordered. ? Patient was placed on scheduled IV hydralazine given persistently elevated blood pressure 5. Suspected malnutrition ? Nutrition consulted. BMI 21 on admit but appears thin and cachectic on exam. Currently n.p.o. due to altered mentation as noted above. 6. Anxiety/depression ? Continue home escitalopram, BuSpar, mirtazapine and trazodone. 7. Type 2 diabetes mellitus ? Home regimen of Lantus 10 units at night with sliding scale insulin. Blood glucose 184 on admit. Last A1c 5.8% on 06/18. Patient n.p.o. as noted above. Will treat with sliding scale insulin every 6 hours for now, adjust as needed. 8. DVT prophylaxis subcu heparin Time spent in the patient's overall evaluation,decision-making process, review of diagnostic data, adjustment of management, discussion with other providers, nursing nursing and ancillary staff involved in patient's care documentation, 50 Minutes Charges/Coding Visit Charges Inpatient E&M: 47538 [facility] Hosp L3
[2024-07-01 07:32] LABS: Anion Gap 10 (5-15); BUN 49 mg/dL (7-18); BUN/Creat Ratio 4.9 RATIO (10-20); Calcium,Total 9.9 mg/dL (8.5-10.1); Chloride 100 mmol/L (98-107); Creatinine, Serum 9.98 mg/dL (0.70-1.30); EST Glomerular Filtration Rate 6 mL/min (>60); Est Glom Filt Rate - Afr Amer 7 mL/min (>60); Estimated Creatinine Clearance 7.02 ml/min; Glucose 120 mg/dL (74-106); Potassium 4.3 mmol/L (3.5-5.1); Sodium Level 138 mmol/L (136-145)
[2024-07-01 07:43] LABS: Bedside Glucose 111 mg/dL (74-106)
--- NOTE | 2024-07-01 09:20 | NURSING ---
This RN spoke Jorge (nurse from [facility] who cares for this pt). She states pt talks a lot and is oriented for the most part but is very behavioral. He is a transfer assist (similar to stand/pivot) to a tilt wheel chair (the back of the chair is reclined) d/t his frequently trying to throw himself out of the chair. He can pull himself along by grabbing railings or chairs but for the most part is moved by staff. He is very restless and anxious normally and has fallen OOB and out of the WC frequently. He does normally feed himself but can be a very picky eater so there are days he eats very little.
[2024-07-01 10:30] LABS: Thyroid Stim Hormone (TSH) 0.523 uIU/mL (0.358-3.740)
[2024-07-01] MEDS: Valproate Sodium 500 MG in Dextrose 5%-Water (50mL Bag) 50 ML 50 MG IV ×2 (11:33→22:29)
[2024-07-01] MEDS: QUEtiapine 25 MG Tablet 50 MG PO (11:40)
[2024-07-01] MEDS: Thiamine Hydrochloride 500 MG in 0.9% Normal Saline (50mL Bag) 50 ML 200 MG IV (13:50)
[2024-07-01] MEDS: BRIMONIDINE 0.2% 5ML BOTTLE 1 DRP EACH EYE (13:57)
[2024-07-01] MEDS: busPIRone 5 MG Tablet PO (14:10)
[2024-07-01] MEDS: Carvedilol 25 MG Tablet PO (14:18)
[2024-07-01] MEDS: 0.9% Saline Lock 10 ML Syringe IV ×2 (14:23→21:00)
--- NOTE | 2024-07-01 15:06 | PCM.PN.REN ---
Subjective Subjective no new events Objective Data Objective Data Vital Signs: Vital Signs Temp Pulse Resp BP Pulse Ox O2 Del Method 97.8 F 70 16 197/105 H 96 Room Air 07/01/24 12:00 07/01/24 14:08 07/01/24 12:00 07/01/24 14:08 07/01/24 12:00 07/01/24 12:00 Oxygen Delivery Method Room Air Weight: 61.5 kg Body Mass Index (BMI) 20.5 Intake & Output: Intake and Output for Last 24 Hours 06/29/24 06/30/24 07/01/24 23:59 23:59 23:59 Intake Total 0 / 0 0 / 0 55 Output Total 1490 / 1490 0 / 0 0 / 0 Balance -1490 / -1490 0 / 0 Medical Nutrition Assessment Dietitian: Malnutrition Criteria Met Start: 07/01/24 13:00 Freq: Status: Active Protocol: Document 07/01/24 13:01 RMA (Rec: 07/01/24 13:01 RMA [id number]) Nutrition Malnutrition Evidence of Malnutrition Exists Yes Malnutrition (severe): Acute Illness/Injury,Chronic Evidenced By Suboptimal Energy Intake ( Severe),Weight Loss (Severe), Physical Changes (Severe) Intake Problem Inadequate Oral Intake Etiology related to altered mental status; failed bedside swallow Signs/Symptoms as evidenced by NPO Status Active Problem Clinical Problem Chronic Disease or Condition Related Malnutrition Etiology severe protein calorie malnutrition in the context of acute on chronic disease related to inadequate oral intake/swallowing difficulty Signs/Symptoms as evidenced by BMI 20.6, ~2% weight loss x 3 days, NPO x 3 days and severe muscle wasting /fat depletion noted in the clavicle, arms, legs and orbital areas Status Active Problem Recommendation Dietitian Recommendations/Changes Pt is NPO x day 3; consider enteral nutrition support if PO diet remains counter indicated. If deemed safe for PO, recommend advance diet as tolerated to 1600 calorie/ carbohydrate-controlled/Renal with PO Nepro. Lab / Micro Data 07/01/24 05:53 07/01/24 05:53 Labs: Laboratory Results - last 24 hr 06/30/24 17:49: POC Glucose 126 H 07/01/24 00:07: POC Glucose 112 H 07/01/24 05:53: WBC 7.8, RBC 3.46 L, Hgb 10.4 L, Hct 31.2 L, MCV 90.2, MCH 30.1, MCHC 33.3, RDW Std Deviation 50.0 H, RDW Coeff of Tae 15.2 H, Plt Count 243, MPV 10.5, Immature Gran % (Auto) 0.400, Neut % (Auto) 71.2 H, Lymph % (Auto) 13.0 L, [place] % (Auto) 13.0 H, Eos % (Auto) 1.5, Baso % (Auto) 0.9, Absolute Neuts (auto) 5.5, Absolute Lymphs (auto) 1.01, Nucleated RBC % 0, Sodium 138, Potassium 4.3, Chloride 100, Carbon Dioxide 27.0, Anion Gap 10, BUN 49 H, Creatinine 9.98 H*, Estim Creat Clear Calc 7.02, Est GFR (MDRD) Af Amer 7 L, Est GFR (MDRD) Non-Af 6 L, BUN/Creatinine Ratio 4.9 L, Glucose 120 H, Calcium 9.9, Folate 30.00, TSH 0.523 07/01/24 06:38: POC Glucose 111 H Micro: Microbiology 06/28/24 16:54 Mucosa - Nose SARS-CoV-2, Influenza & RSV (PCR) - Final Physical Exam Narrative no obvious distress no pallor no icterus no JVD s1s2 no murmurs lungs clear abdomen soft no organomegaly no edema no cyanosis Assessment & Plan Assessment/Plan (1) History of end stage renal disease: PLAN: As outpatient, gets dialysis Tuesday, Tuesday, Tuesday. HD tomorrow
[2024-07-01 15:07] LABS: Bedside Glucose 103 mg/dL (74-106)
[2024-07-01 19:13] LABS: Bedside Glucose 83 mg/dL (74-106)
[2024-07-02] VITALS (20 sets, daily range): BP systolic 120–322; BP diastolic 70–100; PULSE 52–83; RESP 12–18; TEMP 36.6–37.2; O2SAT 95–100; BMI 20.5
[2024-07-02] MEDS: hydrALAZINE 20 MG/ML Vial IV ×5 (00:12→23:23)
[2024-07-02 00:41] LABS: Bedside Glucose 98 mg/dL (74-106)
[2024-07-02 05:53] LABS: Absolute Lymphocyte Count 0.83 X10^3/uL (0.83-4.51); Absolute Neutrophil Count 4.6 X10^3/uL (2.0-7.7); Basophil# 0.07 X10^3/uL; Basophil% 1.1 % (0-1); Eosinophil# 0.12 X10^3/uL; Eosinophils% 1.9 % (0-5); Hematocrit 30.7 % (40-54); Hemoglobin 10.2 g/dL (13.0-16.5); Lymphocyte # 0.83 X10^3/ul (0.83-4.51); Mean Corp Hgb Conc 33.2 g/dL (32-36); Mean Corpuscular Hgb 29.8 pg (27.0-32.0); Mean Corpuscular Volume 89.8 fL (80-94); Mean Platelet Vol. 10.9 fl (6.2-12.0); Monocyte# 0.71 X10^3/uL; Monocyte% 11.1 % (0-10); NRBC Flagged by Analyzer 0 % (0-5); Neutrophil # 4.64 X10^3/uL (2.7-7.7); Neutrophil % 72.4 % (47-70); Platelet Count 219 K/mm3 (150-450); RBC Distribution Width CV 15.1 % (11.6-14.6); RBC Distribution Width SD 49.1 fl (35.1-43.9); Red Blood Count 3.42 M/mm3 (4.6-6.2); White Blood Count 6.4 K/mm3 (4.4-11.0)
[2024-07-02] MEDS: Heparin Injection (Vial) 5,000 UNIT/ML VIAL 5000 UNIT SC ×3 (06:23→22:14)
[2024-07-02 06:41] LABS: Anion Gap 10 (5-15); BUN 66 mg/dL (7-18); BUN/Creat Ratio 5.6 RATIO (10-20); Calcium,Total 9.8 mg/dL (8.5-10.1); Chloride 103 mmol/L (98-107); EST Glomerular Filtration Rate 5 mL/min (>60); Est Glom Filt Rate - Afr Amer 6 mL/min (>60); Estimated Creatinine Clearance 5.94 ml/min; Glucose 94 mg/dL (74-106); Potassium 4.7 mmol/L (3.5-5.1); Sodium Level 138 mmol/L (136-145)
[2024-07-02 06:47] LABS: Bedside Glucose 90 mg/dL (74-106)
[2024-07-02] MEDS: Haloperidol Lactate 5 MG/ML Vial 2 MG IV (08:35)
[2024-07-02] MEDS: proMETHazine 25 MG/ML Syringe 12.5 MG IM ×2 (08:42→14:42)
--- NOTE | 2024-07-02 09:23 | PN.RENAL_ITS ---
Subjective Subjective Following for ESRD. The patient was agitated earlier. He was given haloperidol, and he is more calm during my visit. Patient is still not conversant or following command. Objective Data Objective Data Vital Signs: Vital Signs Temp Pulse Resp BP Pulse Ox O2 Del Method 98.0 F 67 14 170/70 H 97 Room Air 07/02/24 06:00 07/02/24 06:23 07/02/24 06:00 07/02/24 06:23 07/02/24 06:00 07/02/24 06:00 Oxygen Delivery Method Room Air Weight: 61.5 kg Body Mass Index (BMI) 20.5 Intake & Output: Intake and Output for Last 24 Hours 06/30/24 07/01/24 07/02/24 23:59 23:59 23:59 Intake Total 0 / 0 110 / 165 55 / 55 Output Total 0 / 0 0 / 0 0 / 0 Balance 0 / 0 110 / 165 55 / 55 Medical Nutrition Assessment Dietitian: Malnutrition Criteria Met Start: 07/01/24 13:00 Freq: Status: Active Protocol: Document 07/01/24 13:01 RMA (Rec: 07/01/24 13:01 RMA [id number]) Nutrition Malnutrition Evidence of Malnutrition Exists Yes Malnutrition (severe): Acute Illness/Injury,Chronic Evidenced By Suboptimal Energy Intake ( Severe),Weight Loss (Severe), Physical Changes (Severe) Intake Problem Inadequate Oral Intake Etiology related to altered mental status; failed bedside swallow Signs/Symptoms as evidenced by NPO Status Active Problem Clinical Problem Chronic Disease or Condition Related Malnutrition Etiology severe protein calorie malnutrition in the context of acute on chronic disease related to inadequate oral intake/swallowing difficulty Signs/Symptoms as evidenced by BMI 20.6, ~2% weight loss x 3 days, NPO x 3 days and severe muscle wasting /fat depletion noted in the clavicle, arms, legs and orbital areas Status Active Problem Recommendation Dietitian Recommendations/Changes Pt is NPO x day 3; consider enteral nutrition support if PO diet remains counter indicated. If deemed safe for PO, recommend advance diet as tolerated to 1600 calorie/ carbohydrate-controlled/Renal with PO Nepro. Lab / Micro Data 07/02/24 05:06 07/02/24 05:06 Labs: Laboratory Results - last 24 hr 07/01/24 05:53: Folate 30.00, TSH 0.523 07/01/24 13:54: POC Glucose 103 07/01/24 18:40: POC Glucose 83 07/02/24 00:09: POC Glucose 98 07/02/24 05:06: WBC 6.4, RBC 3.42 L, Hgb 10.2 L, Hct 30.7 L, MCV 89.8, MCH 29.8, MCHC 33.2, RDW Std Deviation 49.1 H, RDW Coeff of Tae 15.1 H, Plt Count 219, MPV 10.9, Immature Gran % (Auto) 0.500, Neut % (Auto) 72.4 H, Lymph % (Auto) 13.0 L, [place] % (Auto) 11.1 H, Eos % (Auto) 1.9, Baso % (Auto) 1.1 H, Absolute Neuts (auto) 4.6, Absolute Lymphs (auto) 0.83, Nucleated RBC % 0, Sodium 138, Potassium 4.7, Chloride 103, Carbon Dioxide 25.0, Anion Gap 10, BUN 66 H, C reatinine 11.80 H*, Estim Creat Clear Calc 5.94, Est GFR (MDRD) Af Amer 6 L, Est GFR (MDRD) Non-Af 5 L, BUN/Creatinine Ratio 5.6 L, Glucose 94, Calcium 9.8 07/02/24 06:21: POC Glucose 90 Micro: Microbiology 06/28/24 16:54 Mucosa - Nose SARS-CoV-2, Influenza & RSV (PCR) - Final Physical Exam Narrative no obvious distress no pallor no icterus no JVD s1s2 no murmurs lungs clear abdomen soft no organomegaly no edema no cyanosis Assessment & Plan Assessment/Plan (1) ESRD (end stage renal disease) on dialysis: (2) Hypertension: (3) Encephalopathy: PLAN: Plan Assessment/Plan: The patient is a 58-year-old male with past history of ESRD, type 2 diabetes mellitus, hypertension, stroke with left hemiparesis, and hyperlipidemia. The patient presented to the hospital on 06/28/2024 from SNF with altered mental status. Patient also fell from wheelchair to the ground without loss of consciousness. On presentation to the hospital, patient was found to have severe hypertension. Workup for causes of encephalopathy is ongoing but is thought to most likely be due to seizure. Neurology service is following. Nephrology is following for ESRD and dialysis management. ESRD. The patient dialyzes on MWF schedule at [facility] as outpatient. Dr. Borges is his primary tumbling barrel painter. Will keep patient on MWF schedule while he is in the hospital. The patient was seen during hemodialysis today. We are planning on 4-hour dialysis treatment with planned 2 to 2.5 L ultrafiltration. So far, he is tolerating dialysis well.
[2024-07-02] MEDS: PureFlow B 2K Dialysis Soln 1 BAG 6 BAG PF (09:27)
[2024-07-02] MEDS: 0.9% Normal Saline 1,000 ML IV.SOLN. 1000 ML OPERA.SITE (09:27)
--- NOTE | 2024-07-02 09:41 | PCM.PN.HOSP ---
Reason for Visit Reason for Visit: Diagnoses Encephalopathy, unspecified (06/28/24) Unspecified convulsions (06/28/24) Personal history of other diseases of urinary system (06/28/24) Objective Data Objective Data Vital Signs: Vital Signs Temp Pulse Resp BP Pulse Ox O2 Del Method 97.8 F 59 L 12 164/89 H 100 Room Air 07/02/24 09:00 07/02/24 09:30 07/02/24 09:00 07/02/24 09:30 07/02/24 09:00 07/02/24 09:00 Oxygen Delivery Method Room Air Weight: 135 lb 9.349 oz Body Mass Index (BMI) 20.5 Intake & Output: Intake and Output for Last 24 Hours 06/30/24 07/01/24 07/02/24 23:59 23:59 23:59 Intake Total 0 / 0 110 / 165 55 / 55 Output Total 0 / 0 0 / 0 0 / 0 Balance 0 / 0 110 / 165 55 / 55 Medical Nutrition Assessment Dietitian: Malnutrition Criteria Met Start: 07/01/24 13:00 Freq: Status: Active Protocol: Document 07/01/24 13:01 RMA (Rec: 07/01/24 13:01 RMA [id number]) Nutrition Malnutrition Evidence of Malnutrition Exists Yes Malnutrition (severe): Acute Illness/Injury,Chronic Evidenced By Suboptimal Energy Intake ( Severe),Weight Loss (Severe), Physical Changes (Severe) Intake Problem Inadequate Oral Intake Etiology related to altered mental status; failed bedside swallow Signs/Symptoms as evidenced by NPO Status Active Problem Clinical Problem Chronic Disease or Condition Related Malnutrition Etiology severe protein calorie malnutrition in the context of acute on chronic disease related to inadequate oral intake/swallowing difficulty Signs/Symptoms as evidenced by BMI 20.6, ~2% weight loss x 3 days, NPO x 3 days and severe muscle wasting /fat depletion noted in the clavicle, arms, legs and orbital areas Status Active Problem Recommendation Dietitian Recommendations/Changes Pt is NPO x day 3; consider enteral nutrition support if PO diet remains counter indicated. If deemed safe for PO, recommend advance diet as tolerated to 1600 calorie/ carbohydrate-controlled/Renal with PO Nepro. Lab / Micro Data 07/02/24 05:06 07/02/24 05:06 Labs: Laboratory Results - last 24 hr 07/01/24 05:53: Folate 30.00, TSH 0.523 01/12/25 13:54: POC Glucose 103 07/01/24 18:40: POC Glucose 83 07/02/24 00:09: POC Glucose 98 07/02/24 05:06: WBC 6.4, RBC 3.42 L, Hgb 10.2 L, Hct 30.7 L, MCV 89.8, MCH 29.8, MCHC 33.2, RDW Std Deviation 49.1 H, RDW Coeff of Tae 15.1 H, Plt Count 219, MPV 10.9, Immature Gran % (Auto) 0.500, Neut % (Auto) 72.4 H, Lymph % (Auto) 13.0 L, [place] % (Auto) 11.1 H, Eos % (Auto) 1.9, Baso % (Auto) 1.1 H, Absolute Neuts (auto) 4.6, Absolute Lymphs (auto) 0.83, Nucleated RBC % 0, Sodium 138, Potassium 4.7, Chloride 103, Carbon Dioxide 25.0, Anion Gap 10, BUN 66 H, Creatinine 11.80 H*, Estim Creat Clear Calc 5.94, Est GFR (MDRD) Af Amer 6 L, Est GFR (MDRD) Non-Af 5 L, BUN/Creatinine Ratio 5.6 L, Glucose 94, Calcium 9.8 07/02/24 06:21: POC Glucose 90 Micro: Microbiology 06/28/24 16:54 Mucosa - Nose SARS-CoV-2, Influenza & RSV (PCR) - Final Physical Exam Narrative Patient was agitated and moaning out to the bed. Nursing staff asked me for agitation and required IV Haldol and Phenergan to control and hooked to the dialysis. Currently lethargic and obtunded. Physical exam General: Lethargic, obtunded mild Celerity. HEENT: Atraumatic, PERRLA, EOMI, Normocephalic Oral: No Gingival or Mucosal Lesions/ Ulcerations Neck: Supple, No JVD, Negative Carotid Bruits Chest wall/Lungs: Air entry diminished in bilateral lung bases. No crepitations. Cardiovascular: Sinus bradycardia 56/min. Normal S1, Normal S2, No M/G/R Abdomen: Bowel Sounds Present, Soft, Non Tender, Non-Distended : No No hemodialysis, left arm AV fistula. renal angle tenderness. No suprapubic tenderness. Extremities: No edema, Capillary Refill Less than 3 Seconds Skin: No rashes, No breakdown Musculoskeletal: No Tenderness to Palpation of Joints or Extremities Neurological: Lethargic, detail neuro not be obtunded. Psych/Mental Status: Agitated. Assessment & Plan Assessment/Plan (1) Encephalopathy: (2) Generalized convulsive seizure: PLAN: Plan Patient is a 58-year-old gentleman with history of CVA with chronic left arm contracture and general debility admitted with encephalopathy following tonic-clonic seizure 1. Acute encephalopathy following tonic-clonic seizure ? Patient did receive Ativan and Depacon in the ED ; admitted to the progressive care unit teleneurology consulted. CT brain showed right frontoparietal encephalomalacia, was otherwise nonacute. Given IV Ativan and Depacon in the ED after witnessed tonic-clonic seizure. Per neurology recommendations, MRI brain without contrast and spot EEG ordered. Subsequent antiepileptic therapy deferred to teleneuro 06/30/2024; MRI did show No suspicious acute or subacute ischemic infarct throughout the brain parenchyma. Old hemorrhagic ischemic infarct with atrophy along the right periventricular white matter and right subinsular white matter and old ischemic infarct with cystic encephalomalacia and atrophy in the posterior right middle temporal gyrus. Multiple chronic white matter ischemic changes in both cerebral hemispheres. ? 07/01/2024; [facility] recommended starting patient on Depakote for seizure prophylaxis as well as high-dose IV thiamine. Patient had to be placed in restraints given his agitation and disruption in his care. 07/02/2024: EEG reported as abnormal. Right hemispheric structural region with a moderate severe diffuse encephalopathy. No seizures or epileptiform discharges. Neurologist has signed off with recommendation of Depakote. B12 and thiamine pending. Folate and TSH normal. Patient very agitated in the morning and dialysis nurse unable to connect with the AV fistula. Haldol 2 mg IV and Phenergan 12.5 mg IM given patient was lightly seated for some time but then again woke up and agitated. Haldol 5 mg IV was ordered. 2. History of CVA with chronic left arm contracture and general debility ? Case management consulted. Patient resides at snf for chronic debility secondary to CVA with left-sided deficits. Presume patient will be okay for going back to snf on discharge. 3. ESRD on HD ? Nephrology consulted. On HD MWF, last session on 06/27. 07/02 discussed with the timber management technician. 4. Hypertension ? Hypertensive to the low 200 systolic in the ED. Continue home Coreg, clonidine patch, hydralazine, and nifedipine. IV hydralazine doses in the ED were not too effective so IV labetalol as needed ordered. ? Patient was placed on scheduled IV hydralazine given persistently elevated blood pressure 5. Suspected malnutrition ? Nutrition consulted. BMI 21 on admit but appears thin and cachectic on exam. Currently n.p.o. due to altered mentation as noted above. 6. Anxiety/depression ? Continue home escitalopram, BuSpar, mirtazapine and trazodone. 7. Type 2 diabetes mellitus ? Home regimen of Lantus 10 units at night with sliding scale insulin. Blood glucose 184 on admit. Last A1c 5.8% on 06/18. Patient n.p.o. as noted above. Will treat with sliding scale insulin every 6 hours for now, adjust as needed. 8. DVT prophylaxis subcu heparin Charges/Coding Visit Charges Inpatient E&M: 55224 Subs Hosp L2
--- NOTE | 2024-07-02 10:16 | NUR.TO.PHY ---
pt remains restless. pt grabbed hold of bloodline during dialysis & dislodged arterial needle. minimal blood loss. cristóbal needle remains intact. new cartridge primed as much air entered the system. will attempt to recannulate access &resume tx with new cartridge
[2024-07-02] MEDS: Haloperidol Lactate 5 MG/ML Vial IV ×2 (10:51→16:54)
[2024-07-02] MEDS: Thiamine Hydrochloride 500 MG in 0.9% Normal Saline (50mL Bag) 50 ML 200 MG IV (13:16)
[2024-07-02] MEDS: Valproate Sodium 500 MG in Dextrose 5%-Water (50mL Bag) 50 ML 50 MG IV ×2 (13:16→22:14)
[2024-07-02 13:40] LABS: Bedside Glucose 99 mg/dL (74-106)
--- NOTE | 2024-07-02 14:24 | NUR.TO.PHY ---
Patient had received 1 dose of haldol & 1 dose of phenergan prior to dialysis r/t restlessness. pt was restless to point of dislodging 1 dialysis needle during tx. pt recannulated, received additional dose of haldol & continued w/ dialysis. pt still extremely restless to point of almost rolling out of bed, grabbing at dialysis tubing, sitting up, & pushing staff away when attempting to keep pt from dislodging needles. Dialysis discontinued at @ 3:20 of 4 hour treatment r/t safety concerns for pt removing dialysis needles. burlesque dancer notified.
--- NOTE | 2024-07-02 14:55 | CHAPLAIN ---
Type of Pastoral Visit _x__ Initial Visit ___ Follow-up Visit ___ On-call Visit ___ General Patient Visit ___ Spiritual Assessment ___ Family Conference ___ Bereavement ___ Rapid Response ___ Code Blue ___ Other (describe below) Pastoral Care Referral From ___ Patient ___ Family _x__ Nurse ___ Physician ___ Remnants Cutter ___ Form Drafter ___ Other (describe below) Sacrament/Intervention ___ Active listening ___ Anointing ___ Adventism ___ Bereavement ___ Communion ___ Regla exploration ___ ___ Life review ___ Prayer ___ Reconciliation ___ Sacrament of Sick _x__ Supportive presence ___ Wedding ___ Other (describe below) Pastoral Comments patient is sleeping and has a sitter in the room with him; pt had guard rails and pads on sides of bed; pt is reportedly confused and agitated at times; pt is allowed to sleep and not be disturbed right now;
[2024-07-02 16:03] LABS: Hepatitis B Surface Antibody Non-Reactive; Hepatitis B Surface Antigen Non-Reactive (Nonreactive); Hepatitis C Antibody Non-Reactive (Nonreactive)
[2024-07-02 16:26] LABS: Vitamin B12 1195 pg/mL (211-911)
[2024-07-02 17:16] LABS: Bedside Glucose 99 mg/dL (74-106)
[2024-07-02 23:48] LABS: Bedside Glucose 98 mg/dL (74-106)
[2024-07-03] VITALS (9 sets, daily range): BP systolic 122–190; BP diastolic 79–84; PULSE 62–81; RESP 16–18; TEMP 36.8–37.3; O2SAT 95–99
[2024-07-03] MEDS: 0.9% Saline Lock 10 ML Syringe IV ×4 (04:14→22:17)
[2024-07-03] MEDS: Heparin Injection (Vial) 5,000 UNIT/ML VIAL 5000 UNIT SC ×3 (05:54→22:17)
[2024-07-03] MEDS: Valproate Sodium 500 MG in Dextrose 5%-Water (50mL Bag) 50 ML 50 MG IV ×3 (05:54→22:17)
[2024-07-03] MEDS: hydrALAZINE 20 MG/ML Vial IV ×2 (05:55→11:33)
[2024-07-03 06:01] LABS: Absolute Lymphocyte Count 0.99 X10^3/uL (0.83-4.51); Absolute Neutrophil Count 4.7 X10^3/uL (2.0-7.7); Basophil# 0.07 X10^3/uL; Basophil% 1.1 % (0-1); Eosinophil# 0.08 X10^3/uL; Eosinophils% 1.2 % (0-5); Hematocrit 31.8 % (40-54); Hemoglobin 10.6 g/dL (13.0-16.5); Lymphocyte # 0.99 X10^3/ul (0.83-4.51); Lymphocyte % 14.9 % (19-41); Mean Corp Hgb Conc 33.3 g/dL (32-36); Mean Corpuscular Hgb 30.2 pg (27.0-32.0); Mean Corpuscular Volume 90.6 fL (80-94); Mean Platelet Vol. 10.4 fl (6.2-12.0); NRBC Flagged by Analyzer 0 % (0-5); Neutrophil # 4.69 X10^3/uL (2.7-7.7); Neutrophil % 70.5 % (47-70); Platelet Count 242 K/mm3 (150-450); RBC Distribution Width CV 14.9 % (11.6-14.6); RBC Distribution Width SD 49.1 fl (35.1-43.9); Red Blood Count 3.51 M/mm3 (4.6-6.2); White Blood Count 6.7 K/mm3 (4.4-11.0)
[2024-07-03 06:24] LABS: Bedside Glucose 110 mg/dL (74-106)
[2024-07-03 06:43] LABS: Anion Gap 14 (5-15); BUN 59 mg/dL (7-18); BUN/Creat Ratio 5.6 RATIO (10-20); Chloride 102 mmol/L (98-107); EST Glomerular Filtration Rate 5 mL/min (>60); Est Glom Filt Rate - Afr Amer 7 mL/min (>60); Estimated Creatinine Clearance 6.51 ml/min; Glucose 107 mg/dL (74-106); Potassium 4.6 mmol/L (3.5-5.1); Sodium Level 139 mmol/L (136-145)
[2024-07-03] MEDS: Thiamine Hydrochloride 500 MG in 0.9% Normal Saline (50mL Bag) 50 ML 200 MG IV (10:08)
--- NOTE | 2024-07-03 11:17 | PCM.PN.REN ---
Subjective Subjective Following for ESRD. Patient is awake, alert to self. No overnight events. Objective Data Objective Data Vital Signs: Vital Signs Temp Pulse Resp BP Pulse Ox O2 Del Method 98.5 F 62 18 174/79 H 97 Room Air 07/03/24 10:06 07/03/24 10:06 07/03/24 10:06 07/03/24 10:06 07/03/24 10:06 07/03/24 10:06 Oxygen Delivery Method Room Air Weight: 60 kg Body Mass Index (BMI) 20.0 Intake & Output: Intake and Output for Last 24 Hours 07/01/24 07/02/24 07/03/24 23:59 23:59 23:59 Intake Total 110 / 165 220 / 220 110 / 110 Output Total 0 / 0 1620 / 1620 0 / 0 Balance 110 / 165 -1400 / -1400 110 / 110 Medical Nutrition Assessment Dietitian: Malnutrition Criteria Met Start: 07/01/24 13:00 Freq: Status: Active Protocol: Document 07/01/24 13:01 RMA (Rec: 07/01/24 13:01 RMA [id number]) Nutrition Malnutrition Evidence of Malnutrition Exists Yes Malnutrition (severe): Acute Illness/Injury,Chronic Evidenced By Suboptimal Energy Intake ( Severe),Weight Loss (Severe), Physical Changes (Severe) Intake Problem Inadequate Oral Intake Etiology related to altered mental status; failed bedside swallow Signs/Symptoms as evidenced by NPO Status Active Problem Clinical Problem Chronic Disease or Condition Related Malnutrition Etiology severe protein calorie malnutrition in the context of acute on chronic disease related to inadequate oral intake/swallowing difficulty Signs/Symptoms as evidenced by BMI 20.6, ~2% weight loss x 3 days, NPO x 3 days and severe muscle wasting /fat depletion noted in the clavicle, arms, legs and orbital areas Status Active Problem Recommendation Dietitian Recommendations/Changes Pt is NPO x day 3; consider enteral nutrition support if PO diet remains counter indicated. If deemed safe for PO, recommend advance diet as tolerated to 1600 calorie/ carbohydrate-controlled/Renal with PO Nepro. Lab / Micro Data 07/03/24 05:16 07/03/24 05:16 Labs: Laboratory Results - last 24 hr 07/01/24 05:53: Vitamin B12 1195 H 07/02/24 12:30: Hep Bs Antigen Non-Reactive, Hep Bs Antibody Non-Reactive, Hepatitis C Antibody Non-Reactive 07/02/24 13:14: POC Glucose 99 07/02/24 16:48: POC Glucose 99 07/02/24 23:25: POC Glucose 98 07/03/24 05:16: WBC 6.7, RBC 3.51 L, Hgb 10.6 L, Hct 31.8 L, MCV 90.6, MCH 30.2, MCHC 33.3, RDW Std Deviation 49.1 H, RDW Coeff of Tae 14.9 H, Plt Count 242, MPV 10.4, Immature Gran % (Auto) 0.300, Neut % (Auto) 70.5 H, Lymph % (Auto) 14.9 L, [place] % (Auto) 12.0 H, Eos % (Auto) 1.2, Baso % (Auto) 1.1 H, Absolute Neuts (auto) 4.7, Absolute Lymphs (auto) 0.99, Nucleated RBC % 0, Sodium 139, Potassium 4.6, Chloride 102, Carbon Dioxide 23.0, Anion Gap 14, BUN 59 H, Creatinine 10.50 H*, Estim Creat Clear Calc 6.51, Est GFR (MDRD) Af Amer 7 L, Est GFR (MDRD) Non-Af 5 L, BUN/Creatinine Ratio 5.6 L, Glucose 107 H, Calcium 10.0 07/03/24 05:52: POC Glucose 110 H Micro: Microbiology 06/28/24 16:54 Mucosa - Nose SARS-CoV-2, Influenza & RSV (PCR) - Final Physical Exam Narrative no obvious distress s1s2 no murmurs lungs clear abdomen soft No edema AV fistula left forearm positive thrill and bruit Assessment & Plan Assessment/Plan (1) ESRD (end stage renal disease) on dialysis: (2) Hypertension: (3) Encephalopathy: PLAN: Plan Assessment/Plan: The patient is a 58-year-old male with past history of ESRD, type 2 diabetes mellitus, hypertension, stroke with left hemiparesis, and hyperlipidemia. The patient presented to the hospital on 06/28/2024 from SNF with altered mental status. Patient also fell from wheelchair to the ground without loss of consciousness. On presentation to the hospital, patient was found to have severe hypertension. Workup for causes of encephalopathy is ongoing but is thought to most likely be due to seizure. Neurology service is following. Nephrology is following for ESRD and dialysis management. ESRD. The patient dialyzes on MWF schedule at [facility] as outpatient. Dr. Borges is his primary calculus teacher. Will keep patient on MWF schedule while he is in the hospital. No acute indication for ELECTRICAL INSTALLATION INSPECTOR today. Next dialysis tomorrow. hemoglobin acceptable, 10.6.
[2024-07-03 11:56] LABS: Bedside Glucose 122 mg/dL (74-106)
--- NOTE | 2024-07-03 12:23 | PN.HOSP_ITS ---
Reason for Visit Reason for Visit: Diagnoses Encephalopathy, unspecified (06/28/24) Essential (primary) hypertension (06/28/24) End stage renal disease (06/28/24) Unspecified convulsions (06/28/24) Personal history of other diseases of urinary system (06/28/24) Dependence on renal dialysis (06/28/24) Objective Data Objective Data Vital Signs: Vital Signs Temp Pulse Resp BP Pulse Ox O2 Del Method 98.5 F 65 18 174/79 H 97 Room Air 07/03/24 10:06 07/03/24 11:33 07/03/24 10:06 07/03/24 10:06 07/03/24 10:06 07/03/24 10:06 Oxygen Delivery Method Room Air Weight: 132 lb 4.438 oz Body Mass Index (BMI) 20.0 Intake & Output: Intake and Output for Last 24 Hours 07/01/24 07/02/24 07/03/24 23:59 23:59 23:59 Intake Total 110 / 165 220 / 220 110 / 110 Output Total 0 / 0 1620 / 1620 0 / 0 Balance 110 / 165 -1400 / -1400 110 / 110 Medical Nutrition Assessment Dietitian: Malnutrition Criteria Met Start: 07/01/24 13:00 Freq: Status: Active Protocol: Document 07/01/24 13:01 RMA (Rec: 07/01/24 13:01 RMA [id number]) Nutrition Malnutrition Evidence of Malnutrition Exists Yes Malnutrition (severe): Acute Illness/Injury,Chronic Evidenced By Suboptimal Energy Intake ( Severe),Weight Loss (Severe), Physical Changes (Severe) Intake Problem Inadequate Oral Intake Etiology related to altered mental status; failed bedside swallow Signs/Symptoms as evidenced by NPO Status Active Problem Clinical Problem Chronic Disease or Condition Related Malnutrition Etiology severe protein calorie malnutrition in the context of acute on chronic disease related to inadequate oral intake/swallowing difficulty Signs/Symptoms as evidenced by BMI 20.6, ~2% weight loss x 3 days, NPO x 3 days and severe muscle wasting /fat depletion noted in the clavicle, arms, legs and orbital areas Status Active Problem Recommendation Dietitian Recommendations/Changes Pt is NPO x day 3; consider enteral nutrition support if PO diet remains counter indicated. If deemed safe for PO, recommend advance diet as tolerated to 1600 calorie/ carbohydrate-controlled/Renal with PO Nepro. Lab / Micro Data 07/03/24 05:16 07/03/24 05:16 Labs: Laboratory Results - last 24 hr 07/01/24 05:53: Vitamin B12 1195 H 07/02/24 12:30: Hep Bs Antigen Non-Reactive, Hep Bs Antibody Non-Reactive, Hepatitis C Antibody Non-Reactive 07/02/24 13:14: POC Glucose 99 07/02/24 16:48: POC Glucose 99 07/02/24 23:25: POC Glucose 98 07/03/24 05:16: WBC 6.7, RBC 3.51 L, Hgb 10.6 L, Hct 31.8 L, MCV 90.6, MCH 30.2, MCHC 33.3, RDW Std Deviation 49.1 H, RDW Coeff of Tae 14.9 H, Plt Count 242, MPV 10.4, Immature Gran % (Auto) 0.300, Neut % (Auto) 70.5 H, Lymph % (Auto) 14.9 L, [place] % (Auto) 12.0 H, Eos % (Auto) 1.2, Baso % (Auto) 1.1 H, Absolute Neuts (auto) 4.7, Absolute Lymphs (auto) 0.99, Nucleated RBC % 0, Sodium 139, Potassium 4.6, Chloride 102, Carbon Dioxide 23.0, Anion Gap 14, BUN 59 H, C reatinine 10.50 H*, Estim Creat Clear Calc 6.51, Est GFR (MDRD) Af Amer 7 L, Est GFR (MDRD) Non-Af 5 L, BUN/Creatinine Ratio 5.6 L, Glucose 107 H, Calcium 10.0 07/03/24 05:52: POC Glucose 110 H 07/03/24 11:36: POC Glucose 122 H Micro: Microbiology 06/28/24 16:54 Mucosa - Nose SARS-CoV-2, Influenza & RSV (PCR) - Final Physical Exam Narrative Seen and examined. Patient has sitter near the bedside. Patient is more calmer under quite than yesterday but is still sometimes tried to get out of the bed. Mostly drowsy and lethargic. Physical exam General: Drowsy and lethargic but more awake than yesterday. HEENT: Atraumatic, PERRLA, EOMI, Normocephalic Oral: No Gingival or Mucosal Lesions/ Ulcerations Neck: Supple, No JVD, Negative Carotid Bruits Chest wall/Lungs: Air entry diminished in bilateral lung bases. No crepitations. Cardiovascular: Sinus bradycardia 56/min. Normal S1, Normal S2, No M/G/R Abdomen: Bowel Sounds Present, Soft, Non Tender, Non-Distended : On hemodialysis, left arm AV fistula. renal angle tenderness. No suprapubic tenderness. Extremities: No edema, Capillary Refill Less than 3 Seconds Skin: No rashes, No breakdown Musculoskeletal: No Tenderness to Palpation of Joints or Extremities Neurological: Lethargic, detail neuro not be obtunded. Psych/Mental Status: Sometimes agitation. Chronic psychotic disorder. Assessment & Plan Assessment/Plan (1) Encephalopathy: (2) Generalized convulsive seizure: PLAN: Plan Patient is a 58-year-old gentleman with history of CVA with chronic left arm contracture and general debility admitted with encephalopathy following tonic- clonic seizure 1. Acute encephalopathy following tonic-clonic seizure ? Patient did receive Ativan and Depacon in the ED ; admitted to the progressive care unit teleneurology consulted. CT brain showed right frontoparietal encephalomalacia, was otherwise nonacute. Given IV Ativan and Depacon in the ED after witnessed tonic-clonic seizure. Per neurology recommendations, MRI brain without contrast and spot EEG ordered. Subsequent antiepileptic therapy deferred to teleneuro 06/30/2024; MRI did show No suspicious acute or subacute ischemic infarct throughout the brain parenchyma. Old hemorrhagic ischemic infarct with atrophy along the right periventricular white matter and right subinsular white matter and old ischemic infarct with cystic encephalomalacia and atrophy in the posterior right middle temporal gyrus. Multiple chronic white matter ischemic changes in both cerebral hemispheres. ? [facility] for seizure prophylaxis as well as high-dose IV thiamine. Patient had to be placed in restraints given his agitation and disruption in his care. 07/02/2024: EEG reported as abnormal. Right hemispheric structural region with a moderate severe diffuse encephalopathy. No seizures or epileptiform discharges. Neurologist has signed off with recommendation of Depakote. B12 and thiamine pending. Folate and TSH normal. Patient very agitated in the morning and dialysis nurse unable to connect with the AV fistula. Haldol 2 mg IV and Phenergan 12.5 mg IM given patient was lightly seated for some time but then again woke up and agitated. Haldol 5 mg IV was ordered. 07/03: Patient has sitter near the bedside. Has chronic old hemologic ischemic infarct. On multiple antipsychotic medications. 2. History of CVA with chronic left arm contracture and general debility ? Case management consulted. Patient resides at [facility] for chronic debility secondary to CVA with left-sided deficits. Presume patient will be okay for going back to [facility] on discharge. 3. ESRD on HD ? Nephrology consulted. On HD MWF, last session on 06/27. 07/02 discussed with the electronic train control technician. 4. Hypertension ? Hypertensive to the low 200 systolic in the ED. Continue home Coreg, clonidine patch, hydralazine, and nifedipine. IV hydralazine doses in the ED were not too effective so IV labetalol as needed ordered. ? Patient was placed on scheduled IV hydralazine given persistently elevated blood pressure 07/03: Blood pressure is high. On IV labetalol. 5. Suspected malnutrition ? Nutrition consulted. BMI 21 on admit but appears thin and cachectic on exam. Currently n.p.o. due to altered mentation as noted above. 6. Anxiety/depression ? Continue home escitalopram, BuSpar, mirtazapine and trazodone. 7. Type 2 diabetes mellitus ? Home regimen of Lantus 10 units at night with sliding scale insulin. Blood glucose 184 on admit. Last A1c 5.8% on 06/18. Patient n.p.o. as noted above. Will treat with sliding scale insulin every 6 hours for now, adjust as needed. 8. DVT prophylaxis subcu heparin Charges/Coding Visit Charges Inpatient E&M: 12332 Subs Hosp L2
[2024-07-03] MEDS: Acetaminophen 325 MG Tablet 650 MG PO (13:14)
[2024-07-03] MEDS: busPIRone 5 MG Tablet PO ×2 (13:14→22:08)
[2024-07-03] MEDS: Carvedilol 25 MG Tablet PO ×2 (13:18→22:09)
[2024-07-03] MEDS: NIFEdipine 90 MG Tablet PO (13:37)
--- NOTE | 2024-07-03 14:38 | CHAPLAIN ---
Type of Pastoral Visit ___ Initial Visit _x__ Follow-up Visit ___ On-call Visit ___ General Patient Visit ___ Spiritual Assessment ___ Family Conference ___ Bereavement ___ Rapid Response ___ Code Blue ___ Other (describe below) Pastoral Care Referral From _x__ Patient ___ Family ___ Nurse ___ Physician ___ Pediatric Registered Nurse ___ Rejoiner ___ Other (describe below) Sacrament/Intervention _x__ Active listening ___ Anointing ___ Scientology ___ Bereavement ___ Communion ___ Regla exploration ___ ___ Life review _x__ Prayer ___ Reconciliation ___ Sacrament of Sick _x__ Supportive presence ___ Wedding ___ Other (describe below) Pastoral Comments patient is awake and has a sitter with him today; pt is drinking from a straw and cup on his own; pt is able to answer some questions with simple answers but gets focused on certain words and phrases; pt repeats that he wants to get out of here; pt is asked about what he likes to do and he said 'walk' and then repeated this over and over; this director of speech pathology sits at bedside and gives calm presence and soft words of assurance; pt is given time to be heard and respected as a patient in need of good care; pt answers that he does pray but could not give specifics about how he prays or of what regla he holds; however pt said it was okay for this director of speech pathology to pray for him
[2024-07-03] MEDS: Insulin Lispro 100 UNIT/ML INSULN.PEN SC (17:56)
[2024-07-03 18:11] LABS: Bedside Glucose 232 mg/dL (74-106)
--- NOTE | 2024-07-03 21:14 | NURSING ---
TAMIE, Meng called for an update, this nurse updated family member on Patient, TAMIE appreciative of care and update
[2024-07-03] MEDS: Mirtazapine 15 MG Tablet PO (22:08)
[2024-07-03] MEDS: traZODone 100 MG Tablet PO (22:08)
[2024-07-03] MEDS: MELATONIN 10 MG TABLET 5 MG PO (22:09)
[2024-07-03 22:10] LABS: HIV - WCH Non-Reactive (Nonreactive)
[2024-07-03] MEDS: BRIMONIDINE 0.2% 5ML BOTTLE 1 DRP EACH EYE (22:17)
[2024-07-04] VITALS (17 sets, daily range): BP systolic 76–237; BP diastolic 63–91; PULSE 57–75; RESP 12–18; TEMP 36.3–37.1; O2SAT 96–100; BMI 19.5
[2024-07-04 00:07] LABS: Bedside Glucose 90 mg/dL (74-106)
[2024-07-04] MEDS: 0.9% Saline Lock 10 ML Syringe IV (06:45)
[2024-07-04] MEDS: hydrALAZINE 20 MG/ML Vial IV (06:45)
[2024-07-04] MEDS: Valproate Sodium 500 MG in Dextrose 5%-Water (50mL Bag) 50 ML 50 MG IV ×3 (06:45→22:09)
[2024-07-04] MEDS: Heparin Injection (Vial) 5,000 UNIT/ML VIAL 5000 UNIT SC ×3 (06:46→22:05)
[2024-07-04] MEDS: busPIRone 5 MG Tablet PO ×3 (06:46→22:08)
[2024-07-04 07:18] LABS: Bedside Glucose 107 mg/dL (74-106)
--- NOTE | 2024-07-04 09:06 | PN.RENAL_ITS ---
Subjective Subjective Following for ESRD. The patient is seen during hemodialysis treatment. He is calmer today. However, we are still unable to obtain ROS due to encephalopathy. Objective Data Objective Data Vital Signs: Vital Signs Temp Pulse Resp BP Pulse Ox O2 Del Method 97.9 F 57 L 12 143/71 H 100 Room Air 07/04/24 09:00 07/04/24 09:00 07/04/24 09:00 07/04/24 09:00 07/04/24 09:00 07/04/24 09:00 Oxygen Delivery Method Room Air Weight: 60 kg Body Mass Index (BMI) 20.0 Intake & Output: Intake and Output for Last 24 Hours 07/02/24 07/03/24 07/04/24 23:59 23:59 23:59 Intake Total 220 / 220 2220 / 2220 55 / 55 Output Total 1620 / 1620 0 / 0 Balance -1400 / -1400 2220 / 2220 55 / 55 Medical Nutrition Assessment Dietitian: Malnutrition Criteria Met Start: 07/01/24 13:00 Freq: Status: Active Protocol: Document 07/01/24 13:01 RMA (Rec: 07/01/24 13:01 RMA [id number]) Nutrition Malnutrition Evidence of Malnutrition Exists Yes Malnutrition (severe): Acute Illness/Injury,Chronic Evidenced By Suboptimal Energy Intake ( Severe),Weight Loss (Severe), Physical Changes (Severe) Intake Problem Inadequate Oral Intake Etiology related to altered mental status; failed bedside swallow Signs/Symptoms as evidenced by NPO Status Active Problem Clinical Problem Chronic Disease or Condition Related Malnutrition Etiology severe protein calorie malnutrition in the context of acute on chronic disease related to inadequate oral intake/swallowing difficulty Signs/Symptoms as evidenced by BMI 20.6, ~2% weight loss x 3 days, NPO x 3 days and severe muscle wasting /fat depletion noted in the clavicle, arms, legs and orbital areas Status Active Problem Recommendation Dietitian Recommendations/Changes Pt is NPO x day 3; consider enteral nutrition support if PO diet remains counter indicated. If deemed safe for PO, recommend advance diet as tolerated to 1600 calorie/ carbohydrate-controlled/Renal with PO Nepro. Lab / Micro Data 07/03/24 05:16 07/03/24 05:16 Labs: Laboratory Results - last 24 hr 07/02/24 12:30: HIV 1&2 Antibody Non-Reactive 07/03/24 11:36: POC Glucose 122 H 07/03/24 17:52: POC Glucose 232 H 07/03/24 22:16: POC Glucose 90 07/04/24 06:44: POC Glucose 107 H Micro: Microbiology 06/28/24 16:54 Mucosa - Nose SARS-CoV-2, Influenza & RSV (PCR) - Final Physical Exam Narrative NAD Normal s1s2 no murmurs lungs are clear abdomen is soft, nontender to palpation No edema of extremities Left forearm AV fistula has positive thrill and bruit Assessment & Plan Assessment/Plan (1) ESRD (end stage renal disease) on dialysis: (2) Hypertension: (3) Encephalopathy: PLAN: Plan Assessment/Plan: The patient is a 58-year-old male with past history of ESRD, type 2 diabetes mellitus, hypertension, stroke with left hemiparesis, and hyperlipidemia. The patient presented to the hospital on 06/28/2024 from [facility] with altered mental status. Patient also fell from wheelchair to the ground without loss of consciousness. On presentation to the hospital, patient was found to have severe hypertension. Workup for causes of encephalopathy is ongoing but is thought to most likely be due to seizure. Neurology service is following. Nephrology is following for ESRD and dialysis management. ESRD. The patient dialyzes on MWF schedule at [facility] as outpatient. Dr. Borges is his primary firer helper. Will keep patient on MWF schedule while he is in the hospital. The patient is seen to hemodialysis treatment today. He is tolerating dialysis well thus far. We are using 3K dialysate. Patient does not appear to be volume overloaded, so I will limit ultrafiltration. Next dialysis treatment is scheduled for 07/06/2024.
[2024-07-04 09:08] LABS: Hepatitis B Core Ab Total Negative (Negative)
[2024-07-04] MEDS: 0.9% Normal Saline 1,000 ML IV.SOLN. 1000 ML OPERA.SITE (09:22)
[2024-07-04] MEDS: PureFlow B 2K Dialysis Soln 1 BAG 6 BAG PF (09:22)
[2024-07-04] MEDS: LORazepam 2 MG/ML Syringe 0.5 MG IV (09:23)
[2024-07-04] MEDS: Thiamine Hydrochloride 500 MG in 0.9% Normal Saline (50mL Bag) 50 ML 200 MG IV (12:34)
[2024-07-04] MEDS: Dorzolamide HCL/Timolol 10 ml Bottle 1 DRP OPHTHALMIC ×2 (12:37→22:08)
[2024-07-04] MEDS: BRIMONIDINE 0.2% 5ML BOTTLE 1 DRP EACH EYE ×2 (12:37→22:07)
[2024-07-04] MEDS: NIFEdipine 90 MG Tablet PO (12:38)
[2024-07-04] MEDS: Acetaminophen 325 MG Tablet 650 MG PO (12:38)
[2024-07-04] MEDS: Pantoprazole Sodium 20 MG Tablet PO (12:38)
[2024-07-04] MEDS: Carvedilol 25 MG Tablet PO ×2 (12:39→22:08)
[2024-07-04] MEDS: Gabapentin 300 MG Capsule PO (12:39)
[2024-07-04] MEDS: SEVELAMER CARBONATE 800 MG TABLET PO (12:41)
--- NOTE | 2024-07-04 12:47 | NURSING ---
all AM medications given late at this time due to dialysis tx
[2024-07-04 13:06] LABS: Bedside Glucose 113 mg/dL (74-106)
--- NOTE | 2024-07-04 13:27 | PCM.PN.HOSP ---
Reason for Visit Reason for Visit: Diagnoses Encephalopathy, unspecified (06/28/24) Essential (primary) hypertension (06/28/24) End stage renal disease (06/28/24) Unspecified convulsions (06/28/24) Personal history of other diseases of urinary system (06/28/24) Dependence on renal dialysis (06/28/24) Objective Data Objective Data Vital Signs: Vital Signs Temp Pulse Resp BP Pulse Ox O2 Del Method 97.4 F L 62 14 153/88 H 100 Room Air 07/04/24 12:38 07/04/24 12:38 07/04/24 12:38 07/04/24 12:38 07/04/24 12:38 07/04/24 12:38 Oxygen Delivery Method Room Air Weight: 129 lb 3.054 oz Body Mass Index (BMI) 19.5 Intake & Output: Intake and Output for Last 24 Hours 07/02/24 07/03/24 07/04/24 23:59 23:59 23:59 Intake Total 220 / 220 2220 / 2220 230 / 230 Output Total 1620 / 1620 0 / 0 1300 / 1300 Balance -1400 / -1400 2220 / 2220 -1070 / -1070 Medical Nutrition Assessment Dietitian: Malnutrition Criteria Met Start: 07/01/24 13:00 Freq: Status: Active Protocol: Document 07/01/24 13:01 RMA (Rec: 07/01/24 13:01 RMA [id number]) Nutrition Malnutrition Evidence of Malnutrition Exists Yes Malnutrition (severe): Acute Illness/Injury,Chronic Evidenced By Suboptimal Energy Intake ( Severe),Weight Loss (Severe), Physical Changes (Severe) Intake Problem Inadequate Oral Intake Etiology related to altered mental status; failed bedside swallow Signs/Symptoms as evidenced by NPO Status Active Problem Clinical Problem Chronic Disease or Condition Related Malnutrition Etiology severe protein calorie malnutrition in the context of acute on chronic disease related to inadequate oral intake/swallowing difficulty Signs/Symptoms as evidenced by BMI 20.6, ~2% weight loss x 3 days, NPO x 3 days and severe muscle wasting /fat depletion noted in the clavicle, arms, legs and orbital areas Status Active Problem Recommendation Dietitian Recommendations/Changes Pt is NPO x day 3; consider enteral nutrition support if PO diet remains counter indicated. If deemed safe for PO, recommend advance diet as tolerated to 1600 calorie/ carbohydrate-controlled/Renal with PO Nepro. Lab / Micro Data 07/03/24 05:16 07/03/24 05:16 Labs: Laboratory Results - last 24 hr 07/02/24 12:30: Hep B Core Total Ab Negative, HIV 1&2 Antibody Non-Reactive 07/03/24 17:52: POC Glucose 232 H 07/03/24 22:16: POC Glucose 90 07/04/24 06:44: POC Glucose 107 H 07/04/24 12:23: POC Glucose 113 H Micro: Microbiology 06/28/24 16:54 Mucosa - Nose SARS-CoV-2, Influenza & RSV (PCR) - Final Physical Exam Narrative Seen and examined. The patient is off the sitter since yesterday evening. Did not require Haldol yesterday. Undergoing hemodialysis. Physical exam General: Mild drowsy but better than yesterday. More awake compared to yesterday. HEENT: Atraumatic, PERRLA, EOMI, Normocephalic Oral: No Gingival or Mucosal Lesions/ Ulcerations Neck: Supple, No JVD, Negative Carotid Bruits Chest wall/Lungs: Air entry diminished in bilateral lung bases. No crepitations. Cardiovascular: Sinus bradycardia 56/min. Normal S1, Normal S2, No M/G/R Abdomen: Bowel Sounds Present, Soft, Non Tender, Non-Distended : On hemodialysis, left arm AV fistula. renal angle tenderness. No suprapubic tenderness. Extremities: No edema, Capillary Refill Less than 3 Seconds Skin: No rashes, No breakdown Musculoskeletal: No Tenderness to Palpation of Joints or Extremities Neurological: Lethargic, detail neuro not be obtunded. Psych/Mental Status: Sometimes agitation. Chronic psychotic disorder. Assessment & Plan Assessment/Plan (1) Encephalopathy: (2) Generalized convulsive seizure: PLAN: Plan Patient is a 58-year-old gentleman with history of CVA with chronic left arm contracture and general debility admitted with encephalopathy following tonic-clonic seizure 1. Acute encephalopathy following tonic-clonic seizure ? Patient did receive Ativan and Depacon in the ED ; admitted to the progressive care unit teleneurology consulted. CT brain showed right frontoparietal encephalomalacia, was otherwise nonacute. Given IV Ativan and Depacon in the ED after witnessed tonic-clonic seizure. Per neurology recommendations, MRI brain without contrast and spot EEG ordered. Subsequent antiepileptic therapy deferred to teleneuro 06/30/2024; MRI did show No suspicious acute or subacute ischemic infarct throughout the brain parenchyma. Old hemorrhagic ischemic infarct with atrophy along the right periventricular white matter and right subinsular white matter and old ischemic infarct with cystic encephalomalacia and atrophy in the posterior right middle temporal gyrus. Multiple chronic white matter ischemic changes in both cerebral hemispheres. ? 07/01/2024; [facility] teleneuro recommended starting patient on Depakote for seizure prophylaxis as well as high-dose IV thiamine. Patient had to be placed in restraints given his agitation and disruption in his care. 07/02/2024: EEG reported as abnormal. Right hemispheric structural region with a moderate severe diffuse encephalopathy. No seizures or epileptiform discharges. Neurologist has signed off with recommendation of Depakote. B12 and thiamine pending. Folate and TSH normal. Patient very agitated in the morning and dialysis nurse unable to connect with the AV fistula. Haldol 2 mg IV and Phenergan 12.5 mg IM given patient was lightly seated for some time but then again woke up and agitated. Haldol 5 mg IV was ordered. 07/03: Patient has sitter near the bedside. Has chronic old hemologic ischemic infarct. On multiple antipsychotic medications. 07/04: Patient is off sitter since yesterday evening. Will need 24 hours of sitter before discharge to ECF. 2. History of CVA with chronic left arm contracture and general debility ? Case management consulted. [facility] for chronic debility secondary to CVA with left-sided deficits. Presume patient will be okay for going back to [facility] on discharge. 3. ESRD on HD ? Nephrology consulted. On HD MWF, last session on 06/27. 07/02 discussed with the accounting administrative assistant. 07/04: Undergoing hemodialysis. 4. Hypertension ? Hypertensive to the low 200 systolic in the ED. Continue home Coreg, clonidine patch, hydralazine, and nifedipine. IV hydralazine doses in the ED were not too effective so IV labetalol as needed ordered. ? Patient was placed on scheduled IV hydralazine given persistently elevated blood pressure 07/03: Blood pressure is high. On IV labetalol. 07/04: Blood pressure is better. Losartan 50 mg added. Already on Procardia XL 90 mg daily. 5. Suspected malnutrition ? Nutrition consulted. BMI 21 on admit but appears thin and cachectic on exam. Currently n.p.o. due to altered mentation as noted above. 6. Anxiety/depression ? Continue home escitalopram, BuSpar, mirtazapine and trazodone. 7. Type 2 diabetes mellitus ? Home regimen of Lantus 10 units at night with sliding scale insulin. Blood glucose 184 on admit. Last A1c 5.8% on 06/18. Patient n.p.o. as noted above. Will treat with sliding scale insulin every 6 hours for now, adjust as needed. 8. DVT prophylaxis subcu heparin Charges/Coding Visit Charges Inpatient E&M: 12657 Subs Hosp L2
[2024-07-04] MEDS: Losartan Potassium 50 MG Tablet PO (14:46)
[2024-07-04] MEDS: Insulin Lispro 100 UNIT/ML INSULN.PEN SC (17:38)
[2024-07-04 17:57] LABS: Bedside Glucose 164 mg/dL (74-106)
[2024-07-04] MEDS: Latanoprost 0.005% 1 Bottle 1 DRP EACH EYE (22:05)
[2024-07-04] MEDS: traZODone 100 MG Tablet PO (22:08)
[2024-07-04] MEDS: MELATONIN 10 MG TABLET 5 MG PO (22:10)
[2024-07-04] MEDS: Mirtazapine 15 MG Tablet PO (22:10)
[2024-07-05 00:43] LABS: Bedside Glucose 90 mg/dL (74-106)
[2024-07-05 03:36] VITALS: BP 112/54; PULSE 60; RESP 18; TEMP 36.4; O2SAT 98
[2024-07-05 04:57] LABS: Absolute Lymphocyte Count 0.83 X10^3/uL (0.83-4.51); Basophil# 0.02 X10^3/uL; Basophil% 0.4 % (0-1); Eosinophil# 0.04 X10^3/uL; Eosinophils% 0.7 % (0-5); Hematocrit 28.8 % (40-54); Hemoglobin 10.2 g/dL (13.0-16.5); Lymphocyte # 0.83 X10^3/ul (0.83-4.51); Lymphocyte % 14.8 % (19-41); Mean Corp Hgb Conc 35.4 g/dL (32-36); Mean Corpuscular Hgb 30.9 pg (27.0-32.0); Mean Corpuscular Volume 87.3 fL (80-94); Mean Platelet Vol. 10.5 fl (6.2-12.0); Monocyte# 0.76 X10^3/uL; Monocyte% 13.5 % (0-10); NRBC Flagged by Analyzer 0 % (0-5); Neutrophil # 3.95 X10^3/uL (2.7-7.7); Neutrophil % 70.2 % (47-70); Platelet Count 196 K/mm3 (150-450); RBC Distribution Width CV 14.5 % (11.6-14.6); RBC Distribution Width SD 46.4 fl (35.1-43.9); White Blood Count 5.6 K/mm3 (4.4-11.0)
[2024-07-05 05:28] LABS: Anion Gap 11 (5-15); BUN 57 mg/dL (7-18); BUN/Creat Ratio 6.5 RATIO (10-20); Calcium,Total 9.8 mg/dL (8.5-10.1); Chloride 101 mmol/L (98-107); Creatinine, Serum 8.81 mg/dL (0.70-1.30); EST Glomerular Filtration Rate 7 mL/min (>60); Est Glom Filt Rate - Afr Amer 8 mL/min (>60); Estimated Creatinine Clearance 7.58 ml/min; Glucose 88 mg/dL (74-106); Potassium 4.2 mmol/L (3.5-5.1); Sodium Level 137 mmol/L (136-145)
[2024-07-05] MEDS: busPIRone 5 MG Tablet PO ×2 (06:09→23:17)
[2024-07-05] MEDS: Heparin Injection (Vial) 5,000 UNIT/ML VIAL 5000 UNIT SC ×3 (06:15→23:20)
[2024-07-05 06:17] VITALS: BP 113/78
[2024-07-05] MEDS: Valproate Sodium 500 MG in Dextrose 5%-Water (50mL Bag) 50 ML 50 MG IV ×2 (06:18→13:59)
[2024-07-05 08:11] LABS: Bedside Glucose 96 mg/dL (74-106)
--- NOTE | 2024-07-05 09:25 | PN.HOSP_ITS ---
Reason for Visit Reason for Visit: Diagnoses Encephalopathy, unspecified (06/28/24) Essential (primary) hypertension (06/28/24) End stage renal disease (06/28/24) Unspecified convulsions (06/28/24) Personal history of other diseases of urinary system (06/28/24) Dependence on renal dialysis (06/28/24) Objective Data Objective Data Vital Signs: Vital Signs Temp Pulse Resp BP Pulse Ox O2 Del Method 97.6 F L 60 18 113/78 98 Room Air 07/05/24 03:36 07/05/24 03:36 07/05/24 03:36 07/05/24 06:17 07/05/24 03:36 07/05/24 03:37 Oxygen Delivery Method Room Air Weight: 129 lb 3.054 oz Body Mass Index (BMI) 19.5 Intake & Output: Intake and Output for Last 24 Hours 07/03/24 07/04/24 07/05/24 23:59 23:59 23:59 Intake Total 2220 / 2220 580 / 580 55 / 55 Output Total 0 / 0 1300 / 1300 Balance 2220 / 2220 -720 / -720 55 / 55 Medical Nutrition Assessment Dietitian: Malnutrition Criteria Met Start: 07/01/24 13:00 Freq: Status: Active Protocol: Document 07/01/24 13:01 RMA (Rec: 07/01/24 13:01 RMA [id number]) Nutrition Malnutrition Evidence of Malnutrition Exists Yes Malnutrition (severe): Acute Illness/Injury,Chronic Evidenced By Suboptimal Energy Intake ( Severe),Weight Loss (Severe), Physical Changes (Severe) Intake Problem Inadequate Oral Intake Etiology related to altered mental status; failed bedside swallow Signs/Symptoms as evidenced by NPO Status Active Problem Clinical Problem Chronic Disease or Condition Related Malnutrition Etiology severe protein calorie malnutrition in the context of acute on chronic disease related to inadequate oral intake/swallowing difficulty Signs/Symptoms as evidenced by BMI 20.6, ~2% weight loss x 3 days, NPO x 3 days and severe muscle wasting /fat depletion noted in the clavicle, arms, legs and orbital areas Status Active Problem Recommendation Dietitian Recommendations/Changes Pt is NPO x day 3; consider enteral nutrition support if PO diet remains counter indicated. If deemed safe for PO, recommend advance diet as tolerated to 1600 calorie/ carbohydrate-controlled/Renal with PO Nepro. Lab / Micro Data 07/05/24 04:45 07/05/24 04:45 Labs: Laboratory Results - last 24 hr 07/04/24 12:23: POC Glucose 113 H 07/04/24 17:26: POC Glucose 164 H 07/04/24 23:45: POC Glucose 90 07/05/24 04:45: WBC 5.6, RBC 3.30 L, Hgb 10.2 L, Hct 28.8 L, MCV 87.3, MCH 30.9, MCHC 35.4 D, RDW Std Deviation 46.4 H, RDW Coeff of Tae 14.5, Plt Count 196, MPV 10.5, Immature Gran % (Auto) 0.400, Neut % (Auto) 70.2 H, Lymph % (Auto) 14.8 L, [place] % (Auto) 13.5 H, Eos % (Auto) 0.7, Baso % (Auto) 0.4, Absolute Neuts (auto) 4.0, Absolute Lymphs (auto) 0.83, Nucleated RBC % 0, Sodium 137, Potassium 4.2, Chloride 101, Carbon Dioxide 25.0, Anion Gap 11, BUN 57 H, C reatinine 8.81 H*, Estim Creat Clear Calc 7.58, Est GFR (MDRD) Af Amer 8 L, Est GFR (MDRD) Non-Af 7 L, BUN/Creatinine Ratio 6.5 L, Glucose 88, Calcium 9.8 07/05/24 06:23: POC Glucose 96 Micro: Microbiology 06/28/24 16:54 Mucosa - Nose SARS-CoV-2, Influenza & RSV (PCR) - Final Physical Exam Narrative Seen and examined. Patient is drowsy, lethargic and dozing off. But sometimes he also tries to get out of the bed. The patient is off the sitter since yesterday evening. did not require IV Haldol for last 3 days. Physical exam General: Mild drowsy, lethargic. More drowsy than yesterday HEENT: Atraumatic, PERRLA, EOMI, Normocephalic Oral: No Gingival or Mucosal Lesions/ Ulcerations Neck: Supple, No JVD, Negative Carotid Bruits Chest wall/Lungs: Air entry diminished in bilateral lung bases. No crepitations. Cardiovascular: Sinus bradycardia 56/min. Normal S1, Normal S2, No M/G/R Abdomen: Bowel Sounds Present, Soft, Non Tender, Non-Distended : On hemodialysis, left arm AV fistula. renal angle tenderness. No suprapubic tenderness. Extremities: No edema, Capillary Refill Less than 3 Seconds Skin: No rashes, No breakdown Musculoskeletal: No Tenderness to Palpation of Joints or Extremities Neurological: Lethargic, detail neuro not be obtunded. Psych/Mental Status: Sometimes agitation. Chronic psychotic disorder. Assessment & Plan Assessment/Plan (1) Encephalopathy: (2) Generalized convulsive seizure: PLAN: Plan Patient is a 58-year-old gentleman with history of CVA with chronic left arm contracture and general debility admitted with encephalopathy following tonic- clonic seizure 1. Acute encephalopathy following tonic-clonic seizure ? Patient did receive Ativan and Depacon in the ED ; admitted to the progressive care unit teleneurology consulted. CT brain showed right frontoparietal encephalomalacia, was otherwise nonacute. Given IV Ativan and Depacon in the ED after witnessed tonic-clonic seizure. Per neurology recommendations, MRI brain without contrast and spot EEG ordered. Subsequent antiepileptic therapy deferred to teleneuro 06/30/2024; MRI did show No suspicious acute or subacute ischemic infarct throughout the brain parenchyma. Old hemorrhagic ischemic infarct with atrophy along the right periventricular white matter and right subinsular white matter and old ischemic infarct with cystic encephalomalacia and atrophy in the posterior right middle temporal gyrus. Multiple chronic white matter ischemic changes in both cerebral hemispheres. ? 07/01/2024; [facility] recommended starting patient on Depakote for seizure prophylaxis as well as high-dose IV thiamine. Patient had to be placed in restraints given his agitation and disruption in his care. 07/02/2024: EEG reported as abnormal. Right hemispheric structural region with a moderate severe diffuse encephalopathy. No seizures or epileptiform discharges. Neurologist has signed off with recommendation of Depakote. B12 and thiamine pending. Folate and TSH normal. Patient very agitated in the morning and dialysis nurse unable to connect with the AV fistula. Haldol 2 mg IV and Phenergan 12.5 mg IM given patient was lightly seated for some time but then again woke up and agitated. Haldol 5 mg IV was ordered. 07/03: Patient has sitter near the bedside. Has chronic old hemologic ischemic infarct. On multiple antipsychotic medications. 07/04: Patient is off sitter since yesterday evening. Will need 24 hours of sitter before discharge to [facility]. 07/05: Patient is more drowsy and lethargic. Mirtazapine dose decreased to 7.5 mg nightly. Valproic acid dose decreased to 500 mg every 12 hourly. Monitor. 2. History of CVA with chronic left arm contracture and general debility ? Case management consulted. Patient resides at senior living for chronic debility secondary to CVA with left-sided deficits. Presume patient will be okay for going back to senior living on discharge. 3. ESRD on HD ? Nephrology consulted. On HD MWF, last session on 06/27. 07/02 discussed with the prefinish operator. 07/04: Undergoing hemodialysis. 4. Hypertension ? Hypertensive to the low 200 systolic in the ED. Continue home Coreg, clonidine patch, hydralazine, and nifedipine. IV hydralazine doses in the ED were not too effective so IV labetalol as needed ordered. ? Patient was placed on scheduled IV hydralazine given persistently elevated blood pressure 07/03: Blood pressure is high. On IV labetalol. 07/04: Blood pressure is better. Losartan 50 mg added. Already on Procardia XL 90 mg daily. blood pressure is good. 5. Suspected malnutrition ? Nutrition consulted. BMI 21 on admit but appears thin and cachectic on exam. Currently n.p.o. due to altered mentation as noted above. 6. Anxiety/depression ? Continue home escitalopram, BuSpar, mirtazapine and trazodone. 7. Type 2 diabetes mellitus ? Home regimen of Lantus 10 units at night with sliding scale insulin. Blood glucose 184 on admit. Last A1c 5.8% on 06/18. Patient n.p.o. as noted above. Will treat with sliding scale insulin every 6 hours for now, adjust as needed. 8. DVT prophylaxis subcu heparin Charges/Coding Visit Charges Inpatient E&M: 55693 Subs Hosp L2
[2024-07-05 09:30] VITALS: BP 124/60; PULSE 58; RESP 18; TEMP 36.5; O2SAT 97
[2024-07-05] MEDS: Thiamine Hydrochloride 500 MG in 0.9% Normal Saline (50mL Bag) 50 ML 200 MG IV (10:27)
[2024-07-05] MEDS: Dorzolamide HCL/Timolol 10 ml Bottle 1 DRP OPHTHALMIC ×2 (10:28→23:20)
[2024-07-05] MEDS: BRIMONIDINE 0.2% 5ML BOTTLE 1 DRP EACH EYE ×2 (10:29→23:19)
[2024-07-05 11:09] LABS: Bedside Glucose 119 mg/dL (74-106)
--- NOTE | 2024-07-05 13:26 | PN.RENAL_ITS ---
Subjective Subjective Patient is alert, resting in bed. Denies any complaints. Objective Data Objective Data Vital Signs: Vital Signs Temp Pulse Resp BP Pulse Ox O2 Del Method 97.7 F L 58 L 18 124/60 H 97 Room Air 07/05/24 09:30 07/05/24 09:30 07/05/24 09:30 07/05/24 09:30 07/05/24 09:30 07/05/24 10:00 Oxygen Delivery Method Room Air Weight: 58.6 kg Body Mass Index (BMI) 19.5 Intake & Output: Intake and Output for Last 24 Hours 07/03/24 07/04/24 07/05/24 23:59 23:59 23:59 Intake Total 2220 / 2220 580 / 580 110 / 110 Output Total 0 / 0 1300 / 1300 Balance 2220 / 2220 -720 / -720 110 / 110 Medical Nutrition Assessment Dietitian: Malnutrition Criteria Met Start: 07/01/24 13:00 Freq: Status: Active Protocol: Document 07/01/24 13:01 RMA (Rec: 07/01/24 13:01 RMA [id number]) Nutrition Malnutrition Evidence of Malnutrition Exists Yes Malnutrition (severe): Acute Illness/Injury,Chronic Evidenced By Suboptimal Energy Intake ( Severe),Weight Loss (Severe), Physical Changes (Severe) Intake Problem Inadequate Oral Intake Etiology related to altered mental status; failed bedside swallow Signs/Symptoms as evidenced by NPO Status Active Problem Clinical Problem Chronic Disease or Condition Related Malnutrition Etiology severe protein calorie malnutrition in the context of acute on chronic disease related to inadequate oral intake/swallowing difficulty Signs/Symptoms as evidenced by BMI 20.6, ~2% weight loss x 3 days, NPO x 3 days and severe muscle wasting /fat depletion noted in the clavicle, arms, legs and orbital areas Status Active Problem Recommendation Dietitian Recommendations/Changes Pt is NPO x day 3; consider enteral nutrition support if PO diet remains counter indicated. If deemed safe for PO, recommend advance diet as tolerated to 1600 calorie/ carbohydrate-controlled/Renal with PO Nepro. Lab / Micro Data 07/05/24 04:45 07/05/24 04:45 Labs: Laboratory Results - last 24 hr 07/04/24 17:26: POC Glucose 164 H 07/04/24 23:45: POC Glucose 90 07/05/24 04:45: WBC 5.6, RBC 3.30 L, Hgb 10.2 L, Hct 28.8 L, MCV 87.3, MCH 30.9, MCHC 35.4 D, RDW Std Deviation 46.4 H, RDW Coeff of Tae 14.5, Plt Count 196, MPV 10.5, Immature Gran % (Auto) 0.400, Neut % (Auto) 70.2 H, Lymph % (Auto) 14.8 L, [place] % (Auto) 13.5 H, Eos % (Auto) 0.7, Baso % (Auto) 0.4, Absolute Neuts (auto) 4.0, Absolute Lymphs (auto) 0.83, Nucleated RBC % 0, Sodium 137, Potassium 4.2, Chloride 101, Carbon Dioxide 25.0, Anion Gap 11, BUN 57 H, C reatinine 8.81 H*, Estim Creat Clear Calc 7.58, Est GFR (MDRD) Af Amer 8 L, Est GFR (MDRD) Non-Af 7 L, BUN/Creatinine Ratio 6.5 L, Glucose 88, Calcium 9.8 07/05/24 06:23: POC Glucose 96 07/05/24 10:47: POC Glucose 119 H Micro: Microbiology 06/28/24 16:54 Mucosa - Nose SARS-CoV-2, Influenza & RSV (PCR) - Final Physical Exam Narrative NAD Normal s1s2, no murmurs lungs are clear abdomen is soft, nontender to palpation No edema of extremities Left forearm AV fistula has positive thrill and bruit Assessment & Plan Assessment/Plan (1) ESRD (end stage renal disease) on dialysis: (2) Hypertension: (3) Encephalopathy: PLAN: Plan Assessment/Plan: The patient is a 58-year-old male with past history of ESRD, type 2 diabetes mellitus, hypertension, stroke with left hemiparesis, and hyperlipidemia. The patient presented to the hospital on 06/28/2024 from SNF with altered mental status. Patient also fell from wheelchair to the ground without loss of consciousness. On presentation to the hospital, patient was found to have severe hypertension. Workup for causes of encephalopathy is ongoing but is thought to most likely be due to seizure. Neurology service is following. Nephrology is following for ESRD and dialysis management. ESRD. The patient dialyzes on MWF schedule at [facility] as outpatient. Dr. Borges is his primary zinc plating machine operator. Will keep patient on MWF schedule while he is in the hospital. No acute indication for [employer] today. Next dialysis treatment tomorrow Hemoglobin acceptable at 10.2. Does not need ASHLEIGH. Discharge planning in progress back to [facility].
--- NOTE | 2024-07-05 14:51 | CASEMGMT ---
[facility]charge Planning Updates [facility]. Requested green sheet numbers. Nae Burch DC Planning Asst.
[2024-07-05 15:30] VITALS: BP 129/84; PULSE 74; RESP 18; TEMP 36.6; O2SAT 98
[2024-07-05] MEDS: proMETHazine 25 MG/ML Syringe 12.5 MG IM (16:10)
[2024-07-05] MEDS: Haloperidol Lactate 5 MG/ML Vial IV (16:10)
[2024-07-05 17:44] LABS: Bedside Glucose 109 mg/dL (74-106)
[2024-07-05 19:07] LABS: Vitamin B1, Thiamine 120.5 nmol/L (66.5-200.0)
[2024-07-05 23:14] VITALS: BP 165/100; PULSE 75; RESP 18; TEMP 36.4; O2SAT 95
[2024-07-05] MEDS: traZODone 100 MG Tablet PO (23:18)
[2024-07-05] MEDS: Carvedilol 25 MG Tablet PO (23:18)
[2024-07-05] MEDS: MELATONIN 10 MG TABLET 5 MG PO (23:18)
[2024-07-05] MEDS: Mirtazapine 15 MG Tablet 7.5 MG PO (23:19)
[2024-07-05] MEDS: Latanoprost 0.005% 1 Bottle 1 DRP EACH EYE (23:20)
[2024-07-05 23:37] VITALS: BP 165/100; PULSE 75
[2024-07-05] MEDS: hydrALAZINE 20 MG/ML Vial IV (23:37)
[2024-07-06] VITALS (9 sets, daily range): BP systolic 115–242; BP diastolic 67–92; PULSE 50–78; RESP 13–18; TEMP 36.3–36.6; O2SAT 95–99; BMI 19.5; BMI 19.4
[2024-07-06] LABS: Bedside Glucose 73 mg/dL (74-106)
[2024-07-06] MEDS: Valproate Sodium 500 MG in Dextrose 5%-Water (50mL Bag) 50 ML 50 MG IV ×2 (00:28→12:11)
[2024-07-06 02:59] LABS: Bedside Glucose 96 mg/dL (74-106)
[2024-07-06] MEDS: busPIRone 5 MG Tablet PO (05:39)
[2024-07-06] MEDS: Heparin Injection (Vial) 5,000 UNIT/ML VIAL 5000 UNIT SC (05:39)
[2024-07-06 05:59] LABS: Bedside Glucose 86 mg/dL (74-106)
--- NOTE | 2024-07-06 09:13 | PN.RENAL_ITS ---
Subjective Subjective Following for ESRD. Patient is more awake. He responds to questions but is still somnolent. The patient denies chest pain, dyspnea, or nausea. Objective Data Objective Data Vital Signs: Vital Signs Temp Pulse Resp BP Pulse Ox O2 Del Method 97.4 F L 78 18 134/88 H 95 Room Air 07/06/24 05:29 07/06/24 05:29 07/06/24 05:29 07/06/24 05:29 07/06/24 05:29 07/06/24 05:29 Oxygen Delivery Method Room Air Weight: 58.6 kg Body Mass Index (BMI) 19.5 Intake & Output: Intake and Output for Last 24 Hours 07/04/24 07/05/24 07/06/24 23:59 23:59 23:59 Intake Total 580 / 580 215 / 215 55 / 55 Output Total 1300 / 1300 Balance -720 / -720 215 / 215 55 / 55 Medical Nutrition Assessment Dietitian: Malnutrition Criteria Met Start: 07/01/24 13:00 Freq: Status: Active Protocol: Document 07/01/24 13:01 RMA (Rec: 07/01/24 13:01 RMA [id number]) Nutrition Malnutrition Evidence of Malnutrition Exists Yes Malnutrition (severe): Acute Illness/Injury,Chronic Evidenced By Suboptimal Energy Intake ( Severe),Weight Loss (Severe), Physical Changes (Severe) Intake Problem Inadequate Oral Intake Etiology related to altered mental status; failed bedside swallow Signs/Symptoms as evidenced by NPO Status Active Problem Clinical Problem Chronic Disease or Condition Related Malnutrition Etiology severe protein calorie malnutrition in the context of acute on chronic disease related to inadequate oral intake/swallowing difficulty Signs/Symptoms as evidenced by BMI 20.6, ~2% weight loss x 3 days, NPO x 3 days and severe muscle wasting /fat depletion noted in the clavicle, arms, legs and orbital areas Status Active Problem Recommendation Dietitian Recommendations/Changes Pt is NPO x day 3; consider enteral nutrition support if PO diet remains counter indicated. If deemed safe for PO, recommend advance diet as tolerated to 1600 calorie/ carbohydrate-controlled/Renal with PO Nepro. Lab / Micro Data 07/05/24 04:45 07/05/24 04:45 Labs: Laboratory Results - last 24 hr 07/01/24 05:53: Whole Bld Vitamin B1 120.5 07/05/24 10:47: POC Glucose 119 H 07/05/24 17:26: POC Glucose 109 H 07/05/24 23:33: POC Glucose 73 L 07/06/24 02:40: POC Glucose 96 07/06/24 05:34: POC Glucose 86 Micro: Microbiology 06/28/24 16:54 Mucosa - Nose SARS-CoV-2, Influenza & RSV (PCR) - Final Physical Exam Narrative NAD Normal s1s2, no murmurs lungs are clear anteriorly abdomen is soft, nontender to palpation No edema of extremities Left forearm AV fistula has positive thrill and bruit Assessment & Plan Assessment/Plan (1) ESRD (end stage renal disease) on dialysis: (2) Hypertension: (3) Encephalopathy: PLAN: Plan Assessment/Plan: The patient is a 58-year-old male with past history of ESRD, type 2 diabetes mellitus, hypertension, stroke with left hemiparesis, and hyperlipidemia. The patient presented to the hospital on 06/28/2024 from SNF with altered mental status. Patient also fell from wheelchair to the ground without loss of consciousness. On presentation to the hospital, patient was found to have severe hypertension. Workup for causes of encephalopathy is ongoing but is thought to most likely be due to seizure. Neurology service is following. Nephrology is following for ESRD and dialysis management. ESRD. The patient dialyzes on MWF schedule at [facility] as outpatient. Dr. Borges is his primary vulcan crewmember. Will keep patient on MWF schedule while he is in the hospital. The patient will be dialyzed later today. We will use 3K dialysate. Patient does not appear to be volume overloaded, so I will limit ultrafiltration. Next dialysis treatment is scheduled for 07/09/2024. Awaiting placement at SNF.
--- NOTE | 2024-07-06 09:35 | PCM.TXEXTCAR ---
Diet Diet Order/Speech Therapy: 07/03/24 11:36 Diet: Renal - ConsCHO - Fam Cont Food consistency:: Pureed Liquid Consistency:: Regular/Thin Type of Dietary Supplement:: Nepro Diet Comments: TOTAL FEED IF FULLY ALERT, liquids by straw. 240mL Nepro w/meals How many daily calories?: 1600 calorie Routine Orders/Code Status Suppository Type: Dulcolax 10mg Suppository Frequency: Daily PRN DC O2, CPAP, BIPAP needs Home O2 Discharge instructions: No Wound(s) Lower legs: Wound Type: Skin Tear Therapies Extremity Affected:: Bilateral Lower Physical Therapy: Eval and Treat Occupational Therapy: Eval and Treat Speech Therapy: Eval and Treat Problem/Diagnosis (1) ESRD (end stage renal disease) on dialysis: Status: Acute Code(s): N18.6 - End stage renal disease; Z99.2 - Dependence on renal dialysis (2) Hypertension: Status: Chronic Code(s): I10 - Essential (primary) hypertension (3) Encephalopathy: Status: Acute Code(s): G93.40 - Encephalopathy, unspecified Plan Patient is a 58-year-old gentleman with history of CVA with chronic left arm contracture and general debility admitted with encephalopathy following tonic-clonic seizure 1. Acute encephalopathy following tonic-clonic seizure ? Patient did receive Ativan and Depacon in the ED ; admitted to the progressive care unit teleneurology consulted. CT brain showed right frontoparietal encephalomalacia, was otherwise nonacute. Given IV Ativan and Depacon in the ED after witnessed tonic-clonic seizure. Per neurology recommendations, MRI brain without contrast and spot EEG ordered. Subsequent antiepileptic therapy deferred to teleneuro 06/30/2024; MRI did show No suspicious acute or subacute ischemic infarct throughout the brain parenchyma. Old hemorrhagic ischemic infarct with atrophy along the right periventricular white matter and right subinsular white matter and old ischemic infarct with cystic encephalomalacia and atrophy in the posterior right middle temporal gyrus. Multiple chronic white matter ischemic changes in both cerebral hemispheres. ? 07/01/2024; [facility] recommended starting patient on Depakote for seizure prophylaxis as well as high-dose IV thiamine. Patient had to be placed in restraints given his agitation and disruption in his care. 07/02/2024: EEG reported as abnormal. Right hemispheric structural region with a moderate severe diffuse encephalopathy. No seizures or epileptiform discharges. Neurologist has signed off with recommendation of Depakote. B12 and thiamine pending. Folate and TSH normal. Patient very agitated in the morning and dialysis nurse unable to connect with the AV fistula. Haldol 2 mg IV and Phenergan 12.5 mg IM given patient was lightly seated for some time but then again woke up and agitated. Haldol 5 mg IV was ordered. 07/03: Patient has sitter near the bedside. Has chronic old hemologic ischemic infarct. On multiple antipsychotic medications. 07/04: Patient is off sitter since yesterday evening. Will need 24 hours of sitter before discharge to ECF. 07/05: Patient is more drowsy and lethargic. Mirtazapine dose decreased to 7.5 mg nightly. Valproic acid dose decreased to 500 mg every 12 hourly. Monitor. 2. History of CVA with chronic left arm contracture and general debility ? Case management consulted. [facility] for chronic debility secondary to CVA with left-sided deficits. Presume patient will be okay for going back to retirement on discharge. 3. ESRD on HD ? Nephrology consulted. On HD MWF, last session on 06/27. 07/02 discussed with the jtac. 07/04: Undergoing hemodialysis. 4. Hypertension ? Hypertensive to the low 200 systolic in the ED. Continue home Coreg, clonidine patch, hydralazine, and nifedipine. IV hydralazine doses in the ED were not too effective so IV labetalol as needed ordered. ? Patient was placed on scheduled IV hydralazine given persistently elevated blood pressure 07/03: Blood pressure is high. On IV labetalol. 07/04: Blood pressure is better. Losartan 50 mg added. Already on Procardia XL 90 mg daily. blood pressure is good. 5. Suspected malnutrition ? Nutrition consulted. BMI 21 on admit but appears thin and cachectic on exam. Currently n.p.o. due to altered mentation as noted above. 6. Anxiety/depression ? Continue home escitalopram, BuSpar, mirtazapine and trazodone. 7. Type 2 diabetes mellitus ? Home regimen of Lantus 10 units at night with sliding scale insulin. Blood glucose 184 on admit. Last A1c 5.8% on 06/18. Patient n.p.o. as noted above. Will treat with sliding scale insulin every 6 hours for now, adjust as needed. 8. DVT prophylaxis subcu heparin Allergies/Procedures Done in Hospital Allergies tramadol Allergy (Unknown, Verified 06/28/24 16:17) PT UNABLE TO RESPOND-NEEDS F/U lisinopril Allergy (Verified 06/28/24 16:17) PT UNABLE TO RESPOND-NEEDS F/U Type of Care/Length of Stay Estimated LOS: More Than 30 Days Type of Care Needed: Intermediate Rehab Potential: Good Prognosis: Good Additional Orders/Day of Discharge Day of Discharge: 07/06/24 Dietary and Speech Recommendations Dietitian Recommendations/Changes: Continue Renal - ConsCHO 1600 calorie controlled diet, per CREDIT RELATIONSHIP MANAGER recommendations for consistency/texture. Will order 240ml PO Nepro TID with meals. If pt's appetite continues to declines, recommend nutrition support. Will monitor weight trends. Reviewed and approved by Millicent Manzano RDN, LD. Discharge Plan Admission Admit Date/Time: 06/28/24 21:15 Attending Provider: Kenneth Florentino Primary Care Provider: Karol Alejandro Consulting Providers: Rajesh Samano; Monica Daniel; Satinder Meza; Margareth Rutherford; Lisandra Brito; Ross Muse; Rosanne Bustillo; Rosi Rivera; Armaan Sinha; Yoli Cuello; Adam Adams; Maury Glynn; Domenic Jackson; Suhail Black; Rafa Denise; Brayden Isabel; Dayne Richard; Armando Mejia; Lisandra Albrecht; Jae Mackay; Teresita Greco; Srini Fernandes; Brielle Madrid; MARGARET ELDRIDGE; Daniel Perez; Letty Jamil; Elaine Borges; Conor Connell; Ronnell Guerrero Instructions Additional Instructions / Restrictions: Patient follow-up on neurologist in 2 weeks Discharge Orders/Prescriptions Prescriptions: New carvedilol 25 mg Tablet 25 mg PO BID Qty: 0 0RF divalproex [Depakote] 500 mg tablet,delayed release (DR/EC) 500 mg PO BID 30 Days Qty: 60 2RF thiamine HCl (vitamin B1) 100 mg tablet 100 mg PO DAILY 30 Days Qty: 30 0RF Continued acetaminophen 325 mg capsule 650 mg PO Q4H PRN (Reason: fever or pain) acetaminophen 650 mg suppository 650 mg NM Q4H PRN (Reason: fever) lorazepam [Ativan] 0.5 mg tablet 0.5 mg PO Q12H PRN (Reason: anxiety) bisacodyl 10 mg suppository 10 mg NM DAILY PRN (Reason: constipation) brimonidine 0.2 % drops 1 drp ophthalmic (eye) BID Rx Instructions: BOTH EYES buspirone 5 mg tablet 5 mg PO TID clonidine 0.3 mg/24 hr patch weekly 1 patch transdermal QWEEK dorzolamide-timolol 22.3-6.8 mg/mL drops 1 drp ophthalmic (eye) Q12H Rx Instructions: BOTH EYES Enema 19-7 gram/118 mL enema 118 ml NM DAILY PRN (Reason: constipation) gabapentin 300 mg capsule 300 mg PO DAILY Glucagon Emergency Kit (human) 1 mg recon soln 1 mg subcut X1 guaifenesin [Adult Tussin Chest Congestion] 100 mg/5 mL liquid 200 mg PO Q4H PRN (Reason: congestion) insulin lispro [Humalog KwikPen Insulin] 100 unit/mL insulin pen 1 unit subcut .COMPLEX Rx Instructions: 1 unit subcutaneously QID PER SLIDING SCALE 151-200=1U, 201-250=2U, 251-300=3U, 301-350=4U, 351-400=5U, 401-450=6U, NOTIFY MD IF >450; hydralazine 100 mg tablet 100 mg PO TID latanoprost 0.005 % drops 1 drp ophthalmic (eye) QHS Rx Instructions: BOTH EYES escitalopram oxalate [Lexapro] 10 mg tablet 10 mg PO DAILY melatonin 5 mg tablet 5 mg PO QHS nifedipine 90 mg tablet extended release 90 mg PO DAILY pantoprazole 20 mg tablet,delayed release (DR/EC) 20 mg PO DAILY mirtazapine 15 mg tablet 15 mg PO QHS Melony-Barrett 0.8 mg tablet 1 tab PO DAILY sevelamer carbonate 800 mg tablet 800 mg PO TID trazodone 100 mg tablet 100 mg PO QHS cholecalciferol (vitamin D3) 1,250 mcg (50,000 unit) capsule 1,250 mcg PO QWEEK Discontinued carvedilol 25 mg tablet 50 mg PO BID Rx Instructions: must administer with a meal/food insulin glargine [Lantus Solostar U-100 Insulin] 100 unit/mL (3 mL) insulin pen 10 unit subcut QHS magnesium hydroxide [Milk of Magnesia] 400 mg/5 mL suspension 30 ml PO DAILY PRN (Reason: constipation) Referrals / Follow Up: Karol Alejandro MD [Primary Care Provider] - Disposition Disposition (needs filled in before D/C Order can be placed): NonSkilled NH/Intermed Care
--- NOTE | 2024-07-06 09:43 | PCM.DC.SUM ---
Providers Date of Admission: 06/28/24 Date of Discharge: 07/06/24 Primary Care Physician: Dr. Karol Alejandro MD Consultations 06/28/24 19:27 neuro [Consult: Tele-Neurology] Routine Consulting Provider: [facility] Reason for Consult: is he having subclinical seizures, does he need transferred for eeg EMERGENT Consult: Yes MD Notified: Yes Date Notified: 06/28/24 Time Notified: 19:27 Method of Notification: ED Physician Initiated Nursing Unit Staff Notify [facility] of Tele-Neurology Consult: Yes 06/28/24 22:18 Consult: Nephrology Routine Consulting Provider: Elaine Borges Reason for Consult: ESRD on HD EMERGENT Consult: No MD Notified: Yes Date Notified: 06/28/24 Time Notified: 22:55 Method of Notification: [facility]sw[facility] Teleneurology [Consult: Tele-Neurology] Routine Consulting Provider: [facility] Reason for Consult: seizure w/ history of CVA EMERGENT Consult: No Notified: Yes Date Notified: 06/28/24 Time Notified: 23:00 Method of Notification: Answering Service Nursing Unit Staff Notify [facility] of Tele-Neurology Consult: Yes Reason For Visit: SEIZURE W/HISTORY OF CVA Diagnosis Discharge Diagnosis (1) ESRD (end stage renal disease) on dialysis: Status: Acute Code(s): N18.6 - End stage renal disease; Z99.2 - Dependence on renal dialysis (2) Hypertension: Status: Chronic Code(s): I10 - Essential (primary) hypertension (3) Encephalopathy: Status: Acute Code(s): G93.40 - Encephalopathy, unspecified Plan Patient is a 58-year-old gentleman with history of CVA with chronic left arm contracture and general debility admitted with encephalopathy following tonic-clonic seizure 1. Acute encephalopathy following tonic-clonic seizure ? Patient did receive Ativan and Depacon in the ED ; admitted to the progressive care unit teleneurology consulted. CT brain showed right frontoparietal encephalomalacia, was otherwise nonacute. Given IV Ativan and Depacon in the ED after witnessed tonic-clonic seizure. Per neurology recommendations, MRI brain without contrast and spot EEG ordered. Subsequent antiepileptic therapy deferred to teleneuro 06/30/2024; MRI did show No suspicious acute or subacute ischemic infarct throughout the brain parenchyma. Old hemorrhagic ischemic infarct with atrophy along the right periventricular white matter and right subinsular white matter and old ischemic infarct with cystic encephalomalacia and atrophy in the posterior right middle temporal gyrus. Multiple chronic white matter ischemic changes in both cerebral hemispheres. ? [facility] recommended starting patient on Depakote for seizure prophylaxis as well as high-dose IV thiamine. Patient had to be placed in restraints given his agitation and disruption in his care. 07/02/2024: EEG reported as abnormal. Right hemispheric structural region with a moderate severe diffuse encephalopathy. No seizures or epileptiform discharges. Neurologist has signed off with recommendation of Depakote. B12 and thiamine pending. Folate and TSH normal. Patient very agitated in the morning and dialysis nurse unable to connect with the AV fistula. Haldol 2 mg IV and Phenergan 12.5 mg IM given patient was lightly seated for some time but then again woke up and agitated. Haldol 5 mg IV was ordered. 07/03: Patient has sitter near the bedside. Has chronic old hemologic ischemic infarct. On multiple antipsychotic medications. 07/04: Patient is off sitter since yesterday evening. Will need 24 hours of sitter before discharge to ECF. 07/05: Patient is more drowsy and lethargic. Mirtazapine dose decreased to 7.5 mg nightly. Valproic acid dose decreased to 500 mg every 12 hourly. Monitor. 07/06: Patient is more awake. Responds to simple questions like his name. Whole blood thiamine level is normal. Discharged to valproic acid 500 mg twice daily. On mirtazapine and trazodone. Advised follow-up neurologist in 2 weeks. 2. History of CVA with chronic left arm contracture and general debility ? Case management consulted. Patient resides at care home for chronic debility secondary to CVA with left-sided deficits. Presume patient will be okay for going back to care home on discharge. 3. ESRD on HD ? Nephrology consulted. On HD MWF, last session on 06/27. 07/02 discussed with the medical insurance coding specialist. 07/04: Undergoing hemodialysis. 4. Hypertension ? Hypertensive to the low 200 systolic in the ED. Continue home Coreg, clonidine patch, hydralazine, and nifedipine. IV hydralazine doses in the ED were not too effective so IV labetalol as needed ordered. ? Patient was placed on scheduled IV hydralazine given persistently elevated blood pressure 07/03: Blood pressure is high. On IV labetalol. 07/04: Blood pressure is better. Losartan 50 mg added. Already on Procardia XL 90 mg daily. : Blood pressure is good. 5. Suspected malnutrition ? Nutrition consulted. BMI 21 on admit but appears thin and cachectic on exam. Currently n.p.o. due to altered mentation as noted above. 6. Anxiety/depression ? Continue home escitalopram, BuSpar, mirtazapine and trazodone. 7. Type 2 diabetes mellitus ? Home regimen of Lantus 10 units at night with sliding scale insulin. Blood glucose 184 on admit. Last A1c 5.8% on 06/18. Patient n.p.o. as noted above. Will treat with sliding scale insulin every 6 hours for now, adjust as needed. 8. DVT prophylaxis subcu heparin Discharge medication reconciliation done. Discharge follow-up instructions completed. Discharge process discussed with the patient and all questions were answered to patient's satisfaction. Follow with PCP in 1 to 2 weeks Total time spent, exact 35 minutes on discharge meds reconciliation, examination, coordination of care with nurses and ancillary staff, review of imaging and blood test and discussion with the patient on follow-up instructions. Medications at Discharge Home Medications acetaminophen 325 mg capsule 650 mg PO Q4H PRN fever or pain 06/28/24 acetaminophen 650 mg rectal suppository 650 mg IA Q4H PRN fever 06/28/24 bisacodyl 10 mg rectal suppository 10 mg IA DAILY PRN constipation 06/28/24 brimonidine 0.2 % eye drops 1 drp ophthalmic (eye) BID 06/28/24 buspirone 5 mg tablet 5 mg PO TID ANXIETY 06/28/24 cholecalciferol (vitamin D3) 1,250 mcg (50,000 unit) capsule 1,250 mcg PO QWEEK 06/28/24 clonidine 0.3 mg/24 hr weekly transdermal patch 1 patch transdermal QWEEK 06/28/24 dorzolamide 22.3 mg-timolol 6.8 mg/mL eye drops 1 drp ophthalmic (eye) Q12H 06/28/24 escitalopram oxalate 10 mg tablet (Lexapro) 10 mg PO DAILY 06/28/24 gabapentin 300 mg capsule 300 mg PO DAILY 06/28/24 glucagon 1 mg solution for injection (Glucagon Emergency Kit) 1 mg subcut X1 06/28/24 guaifenesin 100 mg/5 mL oral liquid (Adult Tussin Chest Congestion) 200 mg PO Q4H PRN congestion 06/28/24 hydralazine 100 mg tablet 100 mg PO TID 06/28/24 insulin lispro 100 unit/mL subcutaneous pen (Humalog KwikPen (U-100) Insulin) 1 unit subcut .COMPLEX 06/28/24 latanoprost 0.005 % eye drops 1 drp ophthalmic (eye) QHS 06/28/24 lorazepam 0.5 mg tablet (Ativan) 0.5 mg PO Q12H PRN anxiety 06/28/24 melatonin 5 mg tablet 5 mg PO QHS 06/28/24 mirtazapine 15 mg tablet 15 mg PO QHS 06/28/24 nifedipine 90 mg tablet,extended release 90 mg PO DAILY 06/28/24 pantoprazole 20 mg tablet,delayed release 20 mg PO DAILY 06/28/24 sevelamer carbonate 800 mg tablet 800 mg PO TID 06/28/24 sodium phosphates 19 gram-7 gram/118 mL enema (Enema) 118 ml IA DAILY PRN constipation 06/28/24 trazodone 100 mg tablet 100 mg PO QHS 06/28/24 vitamin B complex-vitamin C-folic acid 0.8 mg tablet (Melony-Barrett) 1 tab PO DAILY 06/28/24 carvedilol 25 mg tablet 25 mg PO BID #0 tabs 07/06/24 divalproex 500 mg tablet,delayed release (Depakote) 500 mg PO BID 30 days #60 tabs 07/06/24 thiamine HCl (vitamin B1) 100 mg tablet 100 mg PO DAILY 1 month #30 tabs 07/06/24 Physical Exam Narrative Seen and examined. Patient is more awake and respond to simple questions compared to yesterday. The patient is off the sitter for last 2 to. did not require IV Haldol for last 4 days. Physical exam General: Awake. On baseline. Responds to simple question HEENT: Atraumatic, PERRLA, EOMI, Normocephalic Oral: No Gingival or Mucosal Lesions/ Ulcerations Neck: Supple, No JVD, Negative Carotid Bruits Chest wall/Lungs: Air entry diminished in bilateral lung bases. No crepitations. Cardiovascular: Sinus bradycardia 56/min. Normal S1, Normal S2, No M/G/R Abdomen: Bowel Sounds Present, Soft, Non Tender, Non-Distended : On hemodialysis, left arm AV fistula. renal angle tenderness. No suprapubic tenderness. Extremities: No edema, Capillary Refill Less than 3 Seconds Skin: No rashes, No breakdown Musculoskeletal: No Tenderness to Palpation of Joints or Extremities Neurological: Lethargic, detail neuro not be obtunded. Psych/Mental Status: Chronic psychotic disorder. Medical Records Data Medical Nutrition Assessment Dietitian: Malnutrition Criteria Met Start: 07/01/24 13:00 Freq: Status: Active Protocol: Document 07/01/24 13:01 RMA (Rec: 07/01/24 13:01 RMA [id number]) Nutrition Malnutrition Evidence of Malnutrition Exists Yes Malnutrition (severe): Acute Illness/Injury,Chronic Evidenced By Suboptimal Energy Intake ( Severe),Weight Loss (Severe), Physical Changes (Severe) Intake Problem Inadequate Oral Intake Etiology related to altered mental status; failed bedside swallow Signs/Symptoms as evidenced by NPO Status Active Problem Clinical Problem Chronic Disease or Condition Related Malnutrition Etiology severe protein calorie malnutrition in the context of acute on chronic disease related to inadequate oral intake/swallowing difficulty Signs/Symptoms as evidenced by BMI 20.6, ~2% weight loss x 3 days, NPO x 3 days and severe muscle wasting /fat depletion noted in the clavicle, arms, legs and orbital areas Status Active Problem Recommendation Dietitian Recommendations/Changes Pt is NPO x day 3; consider enteral nutrition support if PO diet remains counter indicated. If deemed safe for PO, recommend advance diet as tolerated to 1600 calorie/ carbohydrate-controlled/Renal with PO Nepro. Weight / BMI Weight Weight: 129 lb 3.054 oz Body Mass Index (BMI) 19.5 ABG / Lab / Microbiology Data 07/05/24 04:45 07/05/24 04:45 Laboratory: Laboratory Results - last 24 hr 07/01/24 05:53: Whole Bld Vitamin B1 120.5 07/05/24 10:47: POC Glucose 119 H 07/05/24 17:26: POC Glucose 109 H 07/05/24 23:33: POC Glucose 73 L 07/06/24 02:40: POC Glucose 96 07/06/24 05:34: POC Glucose 86 Microbiology: Microbiology 06/28/24 16:54 Mucosa - Nose SARS-CoV-2, Influenza & RSV (PCR) - Final D/C Instructions DC O2, CPAP, BIPAP Needs Home O2 Discharge instructions: No Meaningful Use Info Meaningful Use Meaningful Use Diagnoses (Choose all that apply): None applicable Ischemic Stroke Statin Dosing Therapy Reference: STATIN DOSE THERAPY REFERENCE: * Patients > 75 years receive moderate or high dose statin therapy. * Patients 75 years or YOUNGER should receive HIGH intensity statin dose unless contraindicated. You will be required to document reason for non-treatment if statin daily dose does not meet guidelines. HIGH DOSE STATIN THERAPY DAILY Atorvastatin > than or = to 40 mg Rosuvastatin > than or = to 20 mg Amlodipine + Atorvastatin > than or = to 2.5/40 mg Ezetimibe + Simvastatin 10/80 mg Simvastatin 80mg Discharge Plan Admission Admit Date/Time: 06/28/24 21:15 Attending Provider: Kenneth Florentino Primary Care Provider: Karol Alejandro Consulting Providers: Rajesh Samano; Monica Daniel; Satinder Meza; Margareth Rutherford; Lisandra Brito; Ross Muse; Rosanne Bustillo; Rosi Rivera; Armaan Sinha; Yoli Cuello; Adam Adams; Maury Glynn; Domenic Jackson; Suhail Black; Rafa Denise; Brayden Isabel; Dayne Richard; Armando Mejia; Lisandra Albrecht; Jae Mackay; Teresita Greco; Srini Fernandes; Brielle Madrid; MARGARET ELDRIDGE; Daniel Perez; Letty Jamil; Elaine Borges; Cnoor Connell; Ronnell Guerrero Instructions Additional Instructions / Restrictions: Patient follow-up on neurologist in 2 weeks Discharge Orders/Prescriptions Prescriptions: New carvedilol 25 mg Tablet 25 mg PO BID Qty: 0 0RF divalproex [Depakote] 500 mg tablet,delayed release (DR/EC) 500 mg PO BID 30 Days Qty: 60 2RF thiamine HCl (vitamin B1) 100 mg tablet 100 mg PO DAILY 30 Days Qty: 30 0RF Continued acetaminophen 325 mg capsule 650 mg PO Q4H PRN (Reason: fever or pain) acetaminophen 650 mg suppository 650 mg IA Q4H PRN (Reason: fever) lorazepam [Ativan] 0.5 mg tablet 0.5 mg PO Q12H PRN (Reason: anxiety) bisacodyl 10 mg suppository 10 mg IA DAILY PRN (Reason: constipation) brimonidine 0.2 % drops 1 drp ophthalmic (eye) BID Rx Instructions: BOTH EYES buspirone 5 mg tablet 5 mg PO TID clonidine 0.3 mg/24 hr patch weekly 1 patch transdermal QWEEK dorzolamide-timolol 22.3-6.8 mg/mL drops 1 drp ophthalmic (eye) Q12H Rx Instructions: BOTH EYES Enema 19-7 gram/118 mL enema 118 ml IA DAILY PRN (Reason: constipation) gabapentin 300 mg capsule 300 mg PO DAILY Glucagon Emergency Kit (human) 1 mg recon soln 1 mg subcut X1 guaifenesin [Adult Tussin Chest Congestion] 100 mg/5 mL liquid 200 mg PO Q4H PRN (Reason: congestion) insulin lispro [Humalog KwikPen Insulin] 100 unit/mL insulin pen 1 unit subcut .COMPLEX Rx Instructions: 1 unit subcutaneously QID PER SLIDING SCALE 151-200=1U, 201-250=2U, 251-300=3U, 301-350=4U, 351-400=5U, 401-450=6U, NOTIFY MD IF >450; hydralazine 100 mg tablet 100 mg PO TID latanoprost 0.005 % drops 1 drp ophthalmic (eye) QHS Rx Instructions: BOTH EYES escitalopram oxalate [Lexapro] 10 mg tablet 10 mg PO DAILY melatonin 5 mg tablet 5 mg PO QHS nifedipine 90 mg tablet extended release 90 mg PO DAILY pantoprazole 20 mg tablet,delayed release (DR/EC) 20 mg PO DAILY mirtazapine 15 mg tablet 15 mg PO QHS Melony-Barrett 0.8 mg tablet 1 tab PO DAILY sevelamer carbonate 800 mg tablet 800 mg PO TID trazodone 100 mg tablet 100 mg PO QHS cholecalciferol (vitamin D3) 1,250 mcg (50,000 unit) capsule 1,250 mcg PO QWEEK Discontinued carvedilol 25 mg tablet 50 mg PO BID Rx Instructions: must administer with a meal/food insulin glargine [Lantus Solostar U-100 Insulin] 100 unit/mL (3 mL) insulin pen 10 unit subcut QHS magnesium hydroxide [Milk of Magnesia] 400 mg/5 mL suspension 30 ml PO DAILY PRN (Reason: constipation) Referrals / Follow Up: Karol Alejandro MD [Primary Care Provider] - Disposition Disposition (needs filled in before D/C Order can be placed): NonSkilled NH/Intermed Care Charges/Coding Visit Charges Inpatient E&M: 51288 Disch Hosp >30min
--- NOTE | 2024-07-06 09:48 | CASEMGMT ---
Patient is ready for discharge back to [facility]. Plan: d/c back to [facility] under intermediate level of care. Physicians will transport patient. Leanne DANIEL
[2024-07-06] MEDS: BRIMONIDINE 0.2% 5ML BOTTLE 1 DRP EACH EYE (10:09)
[2024-07-06] MEDS: Dorzolamide HCL/Timolol 10 ml Bottle 1 DRP OPHTHALMIC (10:13)
--- NOTE | 2024-07-06 10:16 | CASEMGMT ---
Discharge Planning Discharge orders, signed med list, and transport time sent to [facility]. Physicians will transport pt by cot at 3p. Nursing, SW, and pts TAMIE/POA (Concepcion) updated. Nae Burch DC Planning Asst.
[2024-07-06] MEDS: 0.9% Normal Saline 1,000 ML IV.SOLN. 1000 ML OPERA.SITE (11:54)
[2024-07-06] MEDS: PureFlow B 2K Dialysis Soln 1 BAG 6 BAG PF (11:54)
--- NOTE | 2024-07-06 14:25 | NURSING ---
Report called to [facility] to nurse Stella
[2024-07-07 17:16] LABS: Bedside Glucose 98 mg/dL (74-106)
== END 2024-07-06 16:15 | disposition intermediate care facility (04) | DRG 100 ==
LOC: ED 21:10 → PCU 21:37
PROVIDERS: Internal Medicine; Physician Assistant; Surgery; Admitting Provider Hospitalist; Emergency Provider Emergency Medicine; PCP Internal Medicine; Visit Provider Internal Medicine
DX: G40.409 Other generalized epilepsy and epileptic syndromes, not intractable, without status epilepticus (principal); N18.6 End stage renal disease; G93.41 Metabolic encephalopathy; E43 Unspecified severe protein-calorie malnutrition; I12.0 Hypertensive chronic kidney disease with stage 5 chronic kidney disease or end stage renal disease; I67.82 Cerebral ischemia; E11.22 Type 2 diabetes mellitus with diabetic chronic kidney disease; I69.334 Monoplegia of upper limb following cerebral infarction affecting left non-dominant side; F32.A Depression, unspecified; Z79.4 Long term (current) use of insulin; Z99.2 Dependence on renal dialysis; I25.2 Old myocardial infarction; F41.9 Anxiety disorder, unspecified; Z79.899 Other long term (current) drug therapy; Z68.21 Body mass index [BMI] 21.0-21.9, adult
CPT/HCPCS: 36415; 36600; 70450; 70551; 71045; 72125; 80048; 82607; 82746; 82803; 82962; 83735; 84100; 84425; 84443; 85025; 85027; 86703; 86704; 86706; 86803; 87340; 87631; 90937; 92523; 92526; 92610; 95819; 97803; 99285; A4216; G0257; J2405

== ENCOUNTER 2024-07-09 20:02 | Emergency (ER) | payer MEDICARE, MEDICAID, SELFPAY ==
[2024-07-09 20:03] VITALS: BP 118/63; PULSE 95; RESP 15; TEMP 37.1; O2SAT 94; BMI 22.1
--- NOTE | 2024-07-09 20:19 | EDS_ITS ---
HPI History of Present Illness Chief Complaint: General Illness [facility] Medical History (Updated 07/09/24 @ 22:[address] Chris Schaffer, DO) Secondary hyperparathyroidism Osteoarthritis Polycystic kidney disease Other abnormalities of gait and mobility Need for assistance with personal care Hypertensive chronic kidney disease with stage 1 through stage 4 chronic kidney disease, or unspecified chronic kidney disease Encephalopathy Dysarthria as late effect of cerebellar cerebrovascular accident (CVA) Carpal tunnel syndrome Anemia Myocardial infarct Anxiety Kidney disease Diabetes Stroke/cerebrovascular accident Home Medications ?Medication ?Instructions ?Recorded ?Last Taken ?Type acetaminophen 325 mg capsule 650 mg PO Q4H PRN fever or pain 06/28/24 Unknown History acetaminophen 650 mg rectal 650 mg SC Q4H PRN fever 06/28/24 Unknown History suppository bisacodyl 10 mg rectal suppository 10 mg SC DAILY PRN constipation 06/28/24 Unknown History brimonidine 0.2 % eye drops 1 drp ophthalmic (eye) BID 06/28/24 Unknown History buspirone 5 mg tablet 5 mg PO TID ANXIETY 06/28/24 Unknown History cholecalciferol (vitamin D3) 1,250 1,250 mcg PO QWEEK 06/28/24 Unknown History mcg (50,000 unit) capsule clonidine 0.3 mg/24 hr weekly 1 patch transdermal QWEEK 06/28/24 Unknown History transdermal patch dorzolamide 22.3 mg-timolol 6.8 1 drp ophthalmic (eye) Q12H 06/28/24 Unknown History mg/mL eye drops escitalopram oxalate 10 mg tablet 10 mg PO DAILY 06/28/24 Unknown History (Lexapro) gabapentin 300 mg capsule 300 mg PO DAILY 06/28/24 Unknown History glucagon 1 mg solution for 1 mg subcut X1 06/28/24 Unknown History injection (Glucagon Emergency Kit) guaifenesin 100 mg/5 mL oral 200 mg PO Q4H PRN congestion 06/28/24 Unknown History liquid (Adult Tussin Chest Congestion) hydralazine 100 mg tablet 100 mg PO TID 06/28/24 Unknown History insulin lispro 100 unit/mL 1 unit subcut .COMPLEX 06/28/24 Unknown History subcutaneous pen (Humalog KwikPen (U-100) Insulin) latanoprost 0.005 % eye drops 1 drp ophthalmic (eye) QHS 06/28/24 Unknown History lorazepam 0.5 mg tablet (Ativan) 0.5 mg PO Q12H PRN anxiety 06/28/24 Unknown History melatonin 5 mg tablet 5 mg PO QHS 06/28/24 Unknown History mirtazapine 15 mg tablet 15 mg PO QHS 06/28/24 Unknown History nifedipine 90 mg tablet,extended 90 mg PO DAILY 06/28/24 Unknown History release pantoprazole 20 mg tablet,delayed 20 mg PO DAILY 06/28/24 Unknown History release sevelamer carbonate 800 mg tablet 800 mg PO TID 06/28/24 Unknown History sodium phosphates 19 gram-7 118 ml SC DAILY PRN constipation 06/28/24 Unknown History gram/118 mL enema (Enema) trazodone 100 mg tablet 100 mg PO QHS 06/28/24 Unknown History vitamin B complex-vitamin C-folic 1 tab PO DAILY 06/28/24 Unknown History acid 0.8 mg tablet (Melony-Barrett) carvedilol 25 mg tablet 25 mg PO BID #0 tabs 07/06/24 Unknown Rx divalproex 500 mg tablet,delayed 500 mg PO BID 30 days #60 tabs 07/06/24 Unknown Rx release (Depakote) thiamine HCl (vitamin B1) 100 mg 100 mg PO DAILY 1 month #30 tabs 07/06/24 Unknown Rx tablet midazolam 2 mg/mL oral syrup 5 mg (2.5 mL) PO Q6H PRN PRN 07/09/24 Unknown Rx agitation 7 days #118 mL Allergy/AdvReac Type Severity Reaction Status Date / Time tramadol Allergy Unknown PT UNABLE Verified 06/28/24 16:17 TO RESPOND-NEEDS F/U lisinopril Allergy PT UNABLE Verified 06/28/24 16:17 TO RESPOND-NEEDS F/U Social History Smoking Status: Unknown if ever smoked EXAM Physical Exam Const Vital Signs: 07/09/24 20:03 07/09/24 20:13 07/09/24 22:03 Temperature 98.8 F Temperature Source Oral Pulse Rate 95 78 Respiratory Rate 15 17 Respiratory Effort Normal Respiratory Pattern Normal Blood Pressure 118/63 107/58 L Blood Pressure Mean 81 74 Pulse Ox 94 95 Oxygen Delivery Method Room Air Room Air MDM MDM MDM Narrative Medical decision making narrative: HISTORY OF PRESENT ILLNESS: 58-year-old male presents with concern for refusing dialysis for 3 days. The of the patient's combative and spitting on staff. Patient states he has no complaints. He states he wants to be in a room. He notes why you are asking these questions. Alert, oriented to person place REVIEW OF SYSTEMS: Pertinent positives: None Pertinent negatives: Chest pain, shortness of breath, fever PHYSICAL EXAM: Nursing triage notes reviewed, Vital signs reviewed Constitutional: please see mdm HENT: MMM Eyes: Pupils equal round and reactive to light, Extraocular muscles intact Neck: No stridor, no JVD, full neck ROM Lungs: Clear to auscultation, No wheezing or rales. No increased work of breathing, no conversational dyspnea, no accessory muscle use, no nasal flaring. No respiratory distress noted Heart: Regular rate and rhythm, No murmurs, No rubs and No gallops, 2+ distal pulses (radial, femoral, posterior tibial) in all extremities Abdomen: Soft, there is no tenderness, rigidity, rebound or guarding, no obvious peritoneal signs, no palpable pulsatile abdominal masses, no auscultated abdominal bruit : No CVAT Extremities: No edema Neuro: No new focal neurological deficits alert and oriented, to person, place and time. Cranial nerves II through XII intact, 5/5 strength in all present extremities. Intact sensation to light touch in all present extremities, 2+ reflexes bilateral patella tendons. Skin: No rash or lesions noted MEDICAL DECISION MAKING: Chief Complaint: Agitation External records reviewed: Reviewed prior records Factors affecting care: ESRD, seizures Social determinants of health: n custodial patient History obtained from others: Discussed with [facility] nurse spoke to Tigist RN - notes lots of behaviors, notes spitting, hitting, throwing things. No report SI. NO physical complaints. NO report of altered mental status. Consults: none [facility] Narrative: The patient was initially hemodynamically stable, afebrile and nontoxic- appearing. Exam shows alert chronically ill-appearing gentleman who is oriented to person and time and thinks he is at [facility] which he just was brought in from. He knows he is in [facility]. He has no focal neurologic deficits. He did not appear agitations. I considered the following differential diagnosis: ICH, arrhythmia, electrolyte disturbance Patient was initially agitated. He was spitting maintaining to nurses and also climbing out of bed being unsafe. Given agitation was treated with initially IV Haldol (5 mg), 2 mg of IV Ativan, 50 mg IV Benadryl this initially improved his agitation but only slightly he required additional dose of 5 mg of IV Versed which improved his agitation the point we can undergo further testing. ALL IMAGES (IF OBTAINED) HAVE BEEN PERSONALLY REVIEWED AND INTERPRETED BY MYSELF. EKG with normal sinus rhythm, left axis deviation, prolonged QT interval at 502, no STEMI CBC with no leukocytosis, mild anemia likely of chronic disease, no thrombocytopenia BMP without significant Hope normality, no sign of endorgan hypoperfusion, no sign of metabolic acidosis, creatinine elevated which is consistent with end- stage renal disease CT scan of chest shows no evidence of pneumomediastinum or volume overload CT scan of the head was negative for acute intracranial normality The synthesis of the patient's history, physical exam, labs images suggest behavioral changes. There is no sign of definitive life-limiting etiology. Given agitation I wrote the patient for short course of as needed Versed as opposed to Ativan as this seemed to work much more effectively. Patient is appropriate for discharge back to custodial for further evaluation and treatment. Discussed at length with the patient's POA Ms. Fan. Went over the patient's presentation, labs, images, ED course and treatments. She agreed with discharging patient home with Versed as well as Ativan for as needed agitation control. Patient is appropriate discharge. He will be transported by EMS The patient and/or family, caregivers express understanding. The patient and/or family, caregivers agrees with the plan. Shared decision making: I will have a discussion with the patient and or visitors regarding risk/benefits of further testing or admission. They will be made aware of of the risk/benefits inherent in this decision they will be given the opportunity to voice understanding. Total critical care time today provided was at least 0 minutes. This excludes separately billable procedures. Critical care time (if documented) is secondary to the patient having high probability of clinically significant/life threatening deterioration in the patient's condition which required my urgent intervention. Impression: 1. Agitation 2. Behavioral Changes Dispo: Discharge to custodial This note was generated with [employer] dictation software. It may contain incorrect words, spelling, and punctuation that were not noted in review of the chart prior to signing. Lab Data Labs: Laboratory Results - last 24 hr 07/09/24 20:15 WBC 7.2 RBC 3.42 L Hgb 10.6 L Hct 29.5 L MCV 86.3 MCH 31.0 MCHC 35.9 RDW Std Deviation 45.1 H RDW Coeff of Tae 14.4 Plt Count 259 MPV 11.2 Sodium 136 Potassium 4.3 Chloride 94 L Carbon Dioxide 32.0 Anion Gap 10 BUN 51 H Creatinine 8.99 H* Estim Creat Clear Calc 8.36 Est GFR (MDRD) Af Amer 8 L Est GFR (MDRD) Non-Af 7 L BUN/Creatinine Ratio 5.7 L Glucose 191 H Calcium 9.5 Radiography Diagnostic Testing: Clinical Impression(s) from Imaging Studies Brain CT 07/09/24 21:45 IMPRESSION: 1. Redemonstration of chronic-appearing infarct in the right middle cerebral artery distribution including the basal ganglia, insula, and frontal lobe as well as the right lateral temporal lobe. 2. Additional chronic ischemic changes. No evidence of acute infarct or hemorrhage. Electronically Signed: Gen Su DO at 22:03 EST , Chest X-Ray 07/09/24 21:48 IMPRESSION: 1. Lucency surrounding the cardiac silhouette may be mock effect or perhaps pneumomediastinum. No definite pneumothorax or additional acute pathology. Consider CT for further evaluation. 2. Moderate cardiomegaly and/or pericardial effusion. Electronically Signed: Gen Su DO at 22:04 EST , ADDENDUM: 07/09/24 2214 IMPRESSION: 1. Lucency surrounding the cardiac silhouette may be mock effect or perhaps pneumomediastinum. No definite pneumothorax or additional acute pathology. Consider CT for further evaluation. 2. Moderate cardiomegaly and/or pericardial effusion. N.B. : Chris Schaffer DO, confirmed on 07/09/2024 22:07:29 (ET) that the healthcare facility has received the radiology report. Electronically Signed: Gen Su DO at 22:04 EST , Chest CT 07/09/24 22:08 IMPRESSION: 1. Cardiomegaly, trace pericardial effusion, coronary artery calcifications. 2. Minimal bilateral lower lobe atelectasis rather than pneumonia. 3. There is no pneumomediastinum. The finding on prior radiographs was artifactual. 4. Mildly patulous esophagus. Associated medium-sized hiatal hernia. 5. Partially visualized enlarged polycystic kidneys. Electronically Signed: Gen Su DO at 22:31 EST , Discharge Plan Triage Chief Complaint: General Illness ED Provider: Chris Schaffer Dx/Rx/DC Orders Clinical Impression: Agitation Prescriptions: New midazolam 2 mg/mL syrup 5 mg PO Q6H PRN PRN (Reason: agitation) 7 Days Qty: 118 0RF No Action acetaminophen 325 mg capsule 650 mg PO Q4H PRN (Reason: fever or pain) acetaminophen 650 mg suppository 650 mg SC Q4H PRN (Reason: fever) lorazepam [Ativan] 0.5 mg tablet 0.5 mg PO Q12H PRN (Reason: anxiety) bisacodyl 10 mg suppository 10 mg SC DAILY PRN (Reason: constipation) brimonidine 0.2 % drops 1 drp ophthalmic (eye) BID Rx Instructions: BOTH EYES buspirone 5 mg tablet 5 mg PO TID clonidine 0.3 mg/24 hr patch weekly 1 patch transdermal QWEEK dorzolamide-timolol 22.3-6.8 mg/mL drops 1 drp ophthalmic (eye) Q12H Rx Instructions: BOTH EYES Enema 19-7 gram/118 mL enema 118 ml SC DAILY PRN (Reason: constipation) gabapentin 300 mg capsule 300 mg PO DAILY Glucagon Emergency Kit (human) 1 mg recon soln 1 mg subcut X1 guaifenesin [Adult Tussin Chest Congestion] 100 mg/5 mL liquid 200 mg PO Q4H PRN (Reason: congestion) insulin lispro [Humalog KwikPen Insulin] 100 unit/mL insulin pen 1 unit subcut .COMPLEX Rx Instructions: 1 unit subcutaneously QID PER SLIDING SCALE 151-200=1U, 201-250=2U, 251- 300=3U, 301-350=4U, 351-400=5U, 401-450=6U, NOTIFY MD IF >450; hydralazine 100 mg tablet 100 mg PO TID latanoprost 0.005 % drops 1 drp ophthalmic (eye) QHS Rx Instructions: BOTH EYES escitalopram oxalate [Lexapro] 10 mg tablet 10 mg PO DAILY melatonin 5 mg tablet 5 mg PO QHS nifedipine 90 mg tablet extended release 90 mg PO DAILY pantoprazole 20 mg tablet,delayed release (DR/EC) 20 mg PO DAILY mirtazapine 15 mg tablet 15 mg PO QHS Melony-Barrett 0.8 mg tablet 1 tab PO DAILY sevelamer carbonate 800 mg tablet 800 mg PO TID trazodone 100 mg tablet 100 mg PO QHS cholecalciferol (vitamin D3) 1,250 mcg (50,000 unit) capsule 1,250 mcg PO QWEEK carvedilol 25 mg Tablet 25 mg PO BID Qty: 0 0RF divalproex [Depakote] 500 mg tablet,delayed release (DR/EC) 500 mg PO BID 30 Days Qty: 60 2RF thiamine HCl (vitamin B1) 100 mg tablet 100 mg PO DAILY 30 Days Qty: 30 0RF Primary Care Provider: Karol Alejandro Referrals: Karol Alejandro MD [Primary Care Provider] - Activity Restrictions/Additional Instructions: Thank you for trusting us with your care today! There were no concerning findings on the patient's images or labs. His potassium level was within normal limits. I prescribed Versed and lieu of Ativan for as needed agitation treatment There is no indication for hospitalization or further ED evaluation at this time. Please take Tylenol (2 pills, 650 mg), ibuprofen (2 pills, 400 mg) every 6 hours as needed for pain and fever control. Please return to the emergency department if your symptoms change or worsen. Please follow with your primary care physician for further outpatient evaluation and management. Print Language: Egyptian Disposition Disposition: Home, Self Care
--- NOTE | 2024-07-09 20:20 | ED.RN ---
THIS NURSE Ariel MOISE TECHNICAL ARCHITECT AT BEDSIDE FOR INITIAL TRIAGE. PT. RESTLESS ON ARRIVAL ROLLING SIDE TO SIDE, AND CRAWLING OVER BED. SEIZURE PADS APPLIED TO BED TO PREVENT HARM TO PT. FACE AND EXTREMITIES D/T RESTLESS BEHAVIOR. REPOSITION AND VERBAL DE-ESCALATION OF PT. WAS UNHELPFUL PT. MADE AN ATTEMPT TO SPIT ON STAFF MEMBERS. PROVIDER NOTIFIED.
[2024-07-09] MEDS: Ondansetron 4 MG/2 ML Vial IV (20:35)
--- NOTE | 2024-07-09 20:41 | EKG12_ITS ---
Test Reason : DYSRHYTHMIA Blood Pressure : */* mmHG Vent. Rate : 73 BPM Atrial Rate : 73 BPM P-R Int : 142 ms QRS Dur : 100 ms QT Int : 456 ms P-R-T Axes : 67 -62 121 degrees QTcB Int : 502 ms Normal sinus rhythm Left anterior fascicular block Left ventricular hypertrophy with repolarization abnormality ( R in aVL , [place] product ) Prolonged QT Abnormal ECG Confirmed by MERA MARTEL, LINDA ([id number]), tape editor CHRISTIE MALHOTRA ([id number]) on 07/16/2024 2:21:25 PM Referred By: Confirmed By: LINDA TESFAYE MD
--- NOTE | 2024-07-09 20:50 | ED.RN ---
Pt agitated and continuously trying to get out of bed.
[2024-07-09] MEDS: DiphenhydrAMINE 50 MG/ML Syringe IV (20:56)
[2024-07-09] MEDS: Haloperidol Lactate 5 MG/ML Vial IV (20:56)
[2024-07-09 20:57] LABS: Hematocrit 29.5 % (40-54); Hemoglobin 10.6 g/dL (13.0-16.5); Mean Corp Hgb Conc 35.9 g/dL (32-36); Mean Corpuscular Volume 86.3 fL (80-94); Mean Platelet Vol. 11.2 fl (6.2-12.0); Platelet Count 259 K/mm3 (150-450); RBC Distribution Width CV 14.4 % (11.6-14.6); RBC Distribution Width SD 45.1 fl (35.1-43.9); Red Blood Count 3.42 M/mm3 (4.6-6.2); White Blood Count 7.2 K/mm3 (4.4-11.0)
--- NOTE | 2024-07-09 21:20 | ED.RN ---
Radiology called and stated unable to obtain CT and XRAY at this time. put in new medication orders.
[2024-07-09] MEDS: Lorazepam 2 MG/ML WCH Syringe IV (21:21)
[2024-07-09 21:23] LABS: Anion Gap 10 (5-15); BUN 51 mg/dL (7-18); BUN/Creat Ratio 5.7 RATIO (10-20); Calcium,Total 9.5 mg/dL (8.5-10.1); Chloride 94 mmol/L (98-107); Creatinine, Serum 8.99 mg/dL (0.70-1.30); EST Glomerular Filtration Rate 7 mL/min (>60); Est Glom Filt Rate - Afr Amer 8 mL/min (>60); Estimated Creatinine Clearance 8.36 ml/min; Glucose 191 mg/dL (74-106); Potassium 4.3 mmol/L (3.5-5.1); Sodium Level 136 mmol/L (136-145)
[2024-07-09] MEDS: Midazolam 5 MG/ML Syringe IV (21:39)
--- NOTE | 2024-07-09 21:45 | CT_ITS ---
EXAM: CT HEAD WITHOUT INTRAVENOUS CONTRAST CLINICAL INDICATION: agitation TECHNIQUE: Multiple axial images were obtained of the head without intravenous contrast. This CT exam was performed using one or more of the following dose reduction techniques: automated exposure control, adjustment of the mA and/or kV according to patient size, and/or use of iterative reconstruction technique. COMPARISON: MRI brain, 06/29/[address] head, 06/28/2024 FINDINGS: BRAIN AND EXTRA-AXIAL SPACES: Redemonstration of chronic-appearing infarct in the right middle cerebral artery distribution including the basal ganglia, insula, and frontal lobe as well as the right lateral temporal lobe. There is non-specific periventricular hypoattenuation which is most commonly related to chronic microvascular ischemic disease in a patient of this age. There is no mass, mass-effect, or shift of the midline structures. No evidence of acute infarct or acute intracranial hemorrhage. There is no evidence of pathologic extra-axial fluid. There is no hydrocephalus. Patent basal cisterns. BONES/JOINTS: No significant abnormality. No discrete lytic or blastic abnormalities. VASCULATURE: Arteriosclerosis. SINUSES: No significant findings. MASTOID AIR CELLS: No significant effusion. ORBITS: No acute findings. CT/Brain/Head without Contrast IMPRESSION: 1. Redemonstration of chronic-appearing infarct in the right middle cerebral artery distribution including the basal ganglia, insula, and frontal lobe as well as the right lateral temporal lobe. 2. Additional chronic ischemic changes. No evidence of acute infarct or hemorrhage. Electronically Signed: Gen Su DO at 22:03 EST ,
--- NOTE | 2024-07-09 21:48 | RAD_ITS ---
ACR Level 3 findings have been noted. An addendum which confirms receipt of the report will follow. EXAM: XR CHEST, 1 VIEW CLINICAL INDICATION: agitation TECHNIQUE: Frontal view of the chest. COMPARISON: 06/28/2024 FINDINGS: LUNGS AND PLEURAL SPACES: No significant abnormality. No consolidation or edema. No pneumothorax. No effusion. HEART: Moderate cardiomegaly and/or pericardial effusion. MEDIASTINUM: Lucency surrounding the cardiac silhouette may be mock effect or perhaps pneumomediastinum. BONES/JOINTS: No significant abnormality. No acute fracture. SOFT TISSUES: No significant abnormality. RAD/Chest 1 View (Portable) IMPRESSION: 1. Lucency surrounding the cardiac silhouette may be mock effect or perhaps pneumomediastinum. No definite pneumothorax or additional acute pathology. Consider CT for further evaluation. 2. Moderate cardiomegaly and/or pericardial effusion. Electronically Signed: Gen Su DO at 22:04 EST ,
[2024-07-09 22:03] VITALS: BP 107/58; PULSE 78; RESP 17; O2SAT 95
--- NOTE | 2024-07-09 22:08 | CT_ITS ---
EXAM: CT CHEST WITHOUT INTRAVENOUS CONTRAST CLINICAL INDICATION: ?pneumomediastinum TECHNIQUE: Helically acquired images were obtained of the chest without intravenous contrast. This CT exam was performed using one or more of the following dose reduction techniques: automated exposure control, adjustment of the mA and/or kV according to patient size, and/or use of iterative reconstruction technique. COMPARISON: Chest radiograph, 07/09/2024 FINDINGS: LUNGS AND PLEURAL SPACES: Minimal bilateral lower lobe atelectasis rather than pneumonia. No mass. No pleural effusion or thickening. HEART: Cardiomegaly, trace pericardial effusion, coronary artery calcifications. MEDIASTINUM: There is no pneumomediastinum. Mildly patulous esophagus. Associated medium-sized hiatal hernia. No mediastinal or hilar adenopathy. THYROID: No significant abnormality. No thyroid lesions. BONES/JOINTS: No significant abnormality. No suspicious lytic or blastic abnormality. VASCULATURE: No significant abnormality. Thoracic aorta is non-dilated. KIDNEYS AND URETERS: Partially visualized enlarged polycystic kidneys. STOMACH AND BOWEL: Fluid distended stomach. CT/Chest without Contrast IMPRESSION: 1. Cardiomegaly, trace pericardial effusion, coronary artery calcifications. 2. Minimal bilateral lower lobe atelectasis rather than pneumonia. 3. There is no pneumomediastinum. The finding on prior radiographs was artifactual. 4. Mildly patulous esophagus. Associated medium-sized hiatal hernia. 5. Partially visualized enlarged polycystic kidneys. Electronically Signed: Gen Su DO at 22:31 EST ,
[2024-07-10] VITALS: BP 104/62; PULSE 62; RESP 14; O2SAT 95
[2024-07-10 00:22] VITALS: BP 125/70; PULSE 68; RESP 16; TEMP 36.4; O2SAT 95
--- NOTE | 2024-07-10 00:23 | ED.RN ---
[facility] called and report given to nurse there. There are no further questions at this time.
== END 2024-07-10 01:34 | disposition home or self-care (01) ==
PROVIDERS: Emergency Provider Emergency Medicine; PCP Internal Medicine; Visit Provider Emergency Medicine
DX: R45.1 Restlessness and agitation (principal); N18.6 End stage renal disease; E11.22 Type 2 diabetes mellitus with diabetic chronic kidney disease; I25.2 Old myocardial infarction
CPT/HCPCS: 70450; 71045; 71250; 80048; 85027; 93005; 96374; 96375; 96376; 99285; A4216; J2405

== ENCOUNTER → 2024-07-11 05:00 | Outpatient (REF) | payer MEDICARE, MEDICAID, SELFPAY | LOC: OLS.SW 05:00 | PROVIDERS: PCP Internal Medicine; Visit Provider Internal Medicine | DX: R41.0 Disorientation, unspecified (principal); R45.1 Restlessness and agitation; R50.9 Fever, unspecified | CPT/HCPCS: 87086 ==